=== PATIENT | male | born 1940 | race Caucasian/White ===

== ENCOUNTER → 2016-12-28 | Outpatient (CLI) | payer BC ==
[~2016-12-28] MED LIST: ASPI81TA28 PO; AZAT50TA22 PO; CALCTAB65 PO; CYAN500T13 PO; FLV1 PO; FOLI1TAB7 PO; LEVO75TA5 PO; NUTRTAB48 PO; PRD10 PO; PRED-301 PO; PRED10TA PO; PYRI100T4 PO; SIMV40TA2 PO; XLTOPS OPB; ZCR40 PO; ZNTT/150 PO
[2016-12-28 16:44] LABS: BASO % 0.3 %; BASO ABS # 0.03 K/uL (0-0.2); COMPLETE YES; EOS % 1.6 %; HEMATOCRIT 37.8 % (42-52); IG% 0.6 %; LYMPH % 8.7 %; LYMPH ABS # 0.75 K/uL (1.2-3.4); MEAN CELL VOLUME 109.6 fL (80-100); MEAN CORPUSCULAR HEMOGLOBIN 37.7 pg (25-34); MEAN CORPUSCULAR HGB CONC 34.4 g/dl (32-36); MEAN PLATELET VOLUME 10.1 fL (7.4-10.4); MONO % 4.6 %; NEUT % 84.2 %; PLATELET COUNT 164 K/uL (130-400); RED BLOOD COUNT 3.45 M/uL (4.7-6.1); WHITE BLOOD COUNT 8.61 K/uL (4.8-10.8)
[2016-12-28 16:50] LABS: URINE APPEARANCE CLEAR (CLEAR); URINE BILIRUBIN NEG (NEG); URINE COLOR YELLOW; URINE EPITHELIAL CELL AUTO 0-5 /lpf (0-5); URINE NITRITE NEG (NEG); URINE PH 5.5 (4.5-7.5); UROBILINOGEN NEG (NEG); ZZUR CULT IF INDIC CLEAN CATCH NO
[2016-12-28 16:51] LABS: MANUAL MICROSCOPIC REQUIRED? NO; REVIEW REQ? NO
[2016-12-28 17:09] LABS: ALT/SGPT 28 U/L (12-78); AST/SGOT 20 U/L (15-37)
[2016-12-28 17:13] LABS: ALKALINE PHOSPHATASE 38 U/L (45-117)
[2017-01-02 23:36] LABS: MYELOPEROXIDASE AB 3.6 AI (<1.0)
== END | disposition home or self-care (01) ==
LOC: C.LAB1850 15:47
PROVIDERS: ATTEND Internal Medicine Rheumatology
DX: M31.30 Wegener's granulomatosis without renal involvement (principal); Z79.899 Other long term (current) drug therapy

== ENCOUNTER → 2017-02-21 | Outpatient (CLI) | payer BC | END | disposition home or self-care (01) | LOC: C.LAB1850 16:15 | PROVIDERS: ATTEND Internal Medicine Rheumatology | DX: M31.30 Wegener's granulomatosis without renal involvement (principal); Z79.899 Other long term (current) drug therapy ==

== ENCOUNTER → 2017-05-12 | Outpatient (CLI) | payer BC ==
[2017-05-12 15:37] LABS: BASO % 0.2 %; BASO ABS # 0.02 K/uL (0-0.2); EOS % 1.3 %; IG% 0.8 %; LYMPH % 6.4 %; LYMPH ABS # 0.64 K/uL (1.2-3.4); MEAN CELL VOLUME 112.4 fL (80-100); MEAN CORPUSCULAR HEMOGLOBIN 38.6 pg (25-34); MEAN CORPUSCULAR HGB CONC 34.4 g/dl (32-36); MEAN PLATELET VOLUME 10.3 fL (7.4-10.4); NEUT % 86.3 %; PLATELET COUNT 180 K/uL (130-400); RED BLOOD COUNT 3.47 M/uL (4.7-6.1); WHITE BLOOD COUNT 10.01 K/uL (4.8-10.8)
[2017-05-12 16:06] LABS: ALT/SGPT 23 U/L (12-78)
[2017-05-12 16:09] LABS: ALKALINE PHOSPHATASE 38 U/L (45-117); AST/SGOT 20 U/L (15-37)
[2017-05-12 16:11] LABS: COMPLETE YES
== END | disposition home or self-care (01) ==
LOC: C.LAB1850 14:13
PROVIDERS: ATTEND Internal Medicine Rheumatology
DX: M31.30 Wegener's granulomatosis without renal involvement (principal); Z79.899 Other long term (current) drug therapy

== ENCOUNTER → 2017-06-21 | Outpatient (CLI) | payer BC ==
[2017-06-21 11:16] LABS: BASO % 0.1 %; BASO ABS # 0.01 K/uL (0-0.2); EOS % 1.2 %; HEMATOCRIT 40.9 % (42-52); IG% 0.6 %; LYMPH ABS # 0.72 K/uL (1.2-3.4); MEAN CELL VOLUME 111.1 fL (80-100); MEAN CORPUSCULAR HEMOGLOBIN 36.4 pg (25-34); MEAN CORPUSCULAR HGB CONC 32.8 g/dl (32-36); MONO % 1.7 %; NEUT % 89.4 %; PLATELET COUNT 177 K/uL (130-400); RED BLOOD COUNT 3.68 M/uL (4.7-6.1); WHITE BLOOD COUNT 10.22 K/uL (4.8-10.8)
[2017-06-21 11:40] LABS: COMPLETE YES
[2017-06-21 11:46] LABS: ALT/SGPT 205 U/L (12-78); BLOOD UREA NITROGEN 14 mg/dl (7-18); BUN/CREATININE RATIO 10.7 (10-20); CALCIUM 9.2 mg/dl (8.5-10.1); CARBON DIOXIDE 29 mmol/L (21-32); CHLORIDE 106 mmol/L (98-107); CHOLESTEROL 167 mg/dl (0-200); GLUCOSE 81 mg/dl (70-99); POTASSIUM 3.6 mmol/L (3.5-5.1); SODIUM 141 mmol/L (136-145)
[2017-06-21 12:05] LABS: ALKALINE PHOSPHATASE 211 U/L (45-117); AST/SGOT 88 U/L (15-37); CHOLESTEROL/HDL RATIO 2.2; HDL CHOLESTEROL 75 mg/dl; LDL CHOLESTEROL CALCULATED 67 mg/dl; TRIGLYCERIDES 126 mg/dl (0-150); VERY LOW DENSITY LIPOPROT CALC 25 mg/dl
[2017-06-27 21:35] LABS: MYELOPEROXIDASE AB 2.4 AI (<1.0)
== END | disposition home or self-care (01) ==
LOC: C.LAB1850 10:16
PROVIDERS: ATTEND Internal Medicine Rheumatology
DX: M31.0 Hypersensitivity angiitis (principal); N18.2 Chronic kidney disease, stage 2 (mild); Z79.899 Other long term (current) drug therapy; D64.9 Anemia, unspecified

== ENCOUNTER 2017-06-27 15:44 | Emergency (ER) | payer BC ==
[~2017-06-27] VITALS: Ht 177.8 cm; Wt 74.4 kg
[~2017-06-27 15:44] MED LIST changes: -ASPI81TA28 PO; -AZAT50TA22 PO; -CALCTAB65 PO; -CYAN500T13 PO; -FLV1 PO; -LEVO75TA5 PO; -NUTRTAB48 PO; -PRED10TA PO; -PYRI100T4 PO; -XLTOPS OPB; -ZCR40 PO; -ZNTT/150 PO
[2017-06-27 15:53] VITALS: TEMP 36.8; Ht 177.8 cm; Wt 74.4 kg
[2017-06-27] MEDS ORDERED: XYLOCAINE 1%/SOD BICARB 20 ML VIAL INFIL STA (16:24)
[2017-06-27] MEDS ORDERED: ZCR40 PO (16:31)
[2017-06-27] MEDS ORDERED: AZAT50TA22 PO (16:31)
[2017-06-27] MEDS ORDERED: XLTOPS OPB (16:31)
[2017-06-27] MEDS ORDERED: FLV1 PO (16:31)
[2017-06-27] MEDS ORDERED: PRED10TA PO (16:33)
--- NOTE | 2017-06-27 18:05 | EMERGENCY ROOM VISIT NOTE ---
ED Visit Note First contact with patient: 16:18 Chief Complaint: "Laceration on right hand". History of Present Illness: This patient is a 77-year-old male who presents to the Emergency Department via private vehicle for evaluation of their right thumb laceration. Patient sustained the laceration while moving a branch, when it struck him on the hand and tore the skin overlying the knuckle of the right third digit. They report a moderate amount of bleeding initially. They deny any numbness or tingling into the distal extremity. They report no decreased range of motion of the affected digit. Patient rates his current discomfort as a 0/10. Patient's Tetanus status is believed to be currently up-to-date. Medications: As noted below Allergies: None PMH: No pertinent SHx: Patient currently lives locally. ROS: All pertinent positive and negative review of systems are appropriately documented in the History of Present Illness. Physical Exam: VITAL SIGNS - Vital signs and nursing notes were reviewed. Stable. GENERAL -77-year-old male appearing his stated age who is in no acute distress. Communicates well with provider and answers questions appropriately. SKIN - There is a 2 cm long laceration noted overlying the proximal MCP joint of the ventral aspect of the right third digit. The edges gape apart with traction. No foreign bodies appreciated. Upon further examination there are no deep structures including vessel, tendon, or bony structures appreciated. There is no active bleeding noted. MUSCULOSKELETAL - Laceration as described above. +5/5 strength appreciated of the affected digit. Full range of motion of the affected digit. NEUROLOGIC - Spinothalamic tract was found to be intact with ability to discriminate sharp versus dull sensation. No sensory defects of the dorsal column were appreciated utilizing light touch for evaluation. VASCULAR - Capillary refill was brisk. ED Course: Patient was seen and evaluated by myself. Risks and benefits of performing primary wound closure versus no repair were discussed with the patient who verbalizes understanding. Verbal consent was obtained prior to performing the procedure. The joint capsule is intact, without evidence of tendon or bony involvement. 3 cc of 1% buffered lidocaine was used to perform local anesthetization of the hand. The wound was cleansed and prepped in the typical sterile fashion utilizing normal saline and Betadine. The wound was sterilely draped. Once proper anesthetization was established, the wound was further examined and demonstrated no deep involvement. The wound was copiously irrigated with normal saline and Betadine. The wound was closed using 4 simple, 5-0 nylon sutures with the wound edges being well approximated. Patient tolerated the procedure well. No complications were met. The wound was cleansed and dressed with a Bacitracin dressing. A metal splint was applied to the finger for comfort. Patient educated on worrisome symptoms for return visit to the Emergency Department. Patient discharged to home in good condition. In the evaluation and treatment of this patient, the following differential diagnoses were considered: Finger Fracture, Finger Dislocation, Finger Sprain, Finger Contusion, Jersey Finger, or Mallet Finger. Problem List Medical Problems: (1) Maldonado syndrome Status: Chronic Current/Historical Medications Scheduled Aspirin (Aspirin Ec), 81 MG PO QPM Azathioprine (Azathioprine), 50 MG PO BID Calcium Carbonate-Vitamin D (Calcium 500 + D), 1 TAB PO QPM Cyanocobalamin (Vitamin B12 500MCG), 500 MCG PO DAILY Folic Acid (Folic Acid), 1 MG PO DAILY Latanoprost (Latanoprost), 1 DROP OPB HS Levothyroxine Sodium (Levothyroxine Sodium), 75 MCG PO QAM Nutritional Supplements (Glucosamine Complex), 1 TAB PO BID Prednisone Tab (Prednisone), 10 MG PO DAILY Pyridoxine (Vitamin B6), 100 MG PO DAILY Ranitidine (Zantac), 150 MG PO BID Simvastatin (Simvastatin), 40 MG PO DAILY Allergies Coded Allergies: No Known Allergies (Verified Allergy, Unknown, 12/05/03) Vital Signs Date Time Temp Pulse Resp B/P (MAP) Pulse Ox O2 Delivery O2 Flow Rate FiO2 06/27/17 18:23 54 140/68 95 06/27/17 17:51 60 133/67 95 06/27/17 15:53 36.8 68 16 146/76 96 Room Air Departure Information Impression Primary Impression: Laceration Dispostion Home / Self-Care Condition GOOD Referrals Dima Kebede M.D. (PCP) Patient Instructions My [facility] Additional Instructions Discharge Instructions: You have received 4 sutures on your hand. These sutures are NOT dissolvable and WILL need to be removed by a health care provider in 12 days. You can return to the Emergency Department or contact your Primary Care Provider to have the sutures removed. Please wear the splint for comfort until the sutures are removed. Proper wound care is essential for adequate wound healing and infection prevention. You can shower and clean the wound with soap and water. Do not scour over the wound, pat dry with a towel. Do not submerse the wound (i.e. bathe or dish wash) until the sutures have been removed. You can use an antibiotic ointment with a dressing over the wound for the next 3-4 days. After this time you may leave the wound dry and open to the air. If crust develops over the wound you can use a Q-tip to apply a 1:1 peroxide:water solution to clean the wound. Look for signs of infection of the wound including: increased pain, swelling, foul discharge, streaking, or increased temperature. If any of these are noticed you should return to the Emergency Department for further assessment and treatment. As with any laceration you may have received nerve damage to the surrounding tissues. This damage may or may not be permanent. You should keep the area covered with sunscreen for the first 6 months to 1 year when at risk for exposure to help minimize scarring. You can also use scar reducing creams or Vitamin E oil to help minimize scarring. For pain control, you can use the following [id number] medicines (if >12 yo): - Regular strength (325mg/tab) Tylenol (acetaminophen) 2 tabs every 4-6 hours as needed. Do not exceed 12 tablets in a 24 hour period. Avoid taking more than 3 grams (3000 mg) of Tylenol per day. This includes any other sources of acetaminophen you may take on a regular basis. Return to the emergency department if your symptoms worsen despite treatment course outlined above.
[2017-06-27] MEDS ORDERED: CYAN500T13 PO (18:11)
[2017-06-27] MEDS ORDERED: ZNTT/150 PO (18:11)
[2017-06-27] MEDS ORDERED: LEVO75TA5 PO (18:11)
[2017-06-27] MEDS ORDERED: ASPI81TA28 PO (18:11)
[2017-06-27] MEDS ORDERED: PYRI100T4 PO (18:11)
[2017-06-27] MEDS ORDERED: CALCTAB65 PO (18:11)
[2017-06-27] MEDS ORDERED: NUTRTAB48 PO (18:11)
--- NOTE | 2017-06-27 18:15 | EMERGENCY ROOM VISIT NOTE ---
ED Visit Note First contact with patient: 18:14 I have seen and examined this pt with Cornelio Moore and agree with the treatment plan Problem List Medical Problems: (1) Maldonado syndrome Status: Chronic Current/Historical Medications Scheduled Aspirin (Aspirin Ec), 81 MG PO QPM Azathioprine (Azathioprine), 50 MG PO BID Calcium Carbonate-Vitamin D (Calcium 500 + D), 1 TAB PO QPM Cyanocobalamin (Vitamin B12 500MCG), 500 MCG PO DAILY Folic Acid (Folic Acid), 1 MG PO DAILY Latanoprost (Latanoprost), 1 DROP OPB HS Levothyroxine Sodium (Levothyroxine Sodium), 75 MCG PO QAM Nutritional Supplements (Glucosamine Complex), 1 TAB PO BID Prednisone Tab (Prednisone), 10 MG PO DAILY Pyridoxine (Vitamin B6), 100 MG PO DAILY Ranitidine (Zantac), 150 MG PO BID Simvastatin (Simvastatin), 40 MG PO DAILY Allergies Coded Allergies: No Known Allergies (Verified Allergy, Unknown, 12/05/03) Vital Signs Date Time Temp Pulse Resp B/P (MAP) Pulse Ox O2 Delivery O2 Flow Rate FiO2 06/27/17 17:51 60 133/67 95 06/27/17 15:53 36.8 68 16 146/76 96 Room Air Departure Information Impression Primary Impression: Laceration Dispostion Home / Self-Care Condition GOOD Referrals Dima Kebede M.D. (PCP) Forms HOME CARE DOCUMENTATION FORM, IMPORTANT VISIT INFORMATION Patient Instructions My [facility] Additional Instructions Discharge Instructions: You have received 4 sutures on your hand. These sutures are NOT dissolvable and WILL need to be removed by a health care provider in 12 days. You can return to the Emergency Department or contact your Primary Care Provider to have the sutures removed. Please wear the splint for comfort until the sutures are removed. Proper wound care is essential for adequate wound healing and infection prevention. You can shower and clean the wound with soap and water. Do not scour over the wound, pat dry with a towel. Do not submerse the wound (i.e. bathe or dish wash) until the sutures have been removed. You can use an antibiotic ointment with a dressing over the wound for the next 3-4 days. After this time you may leave the wound dry and open to the air. If crust develops over the wound you can use a Q-tip to apply a 1:1 peroxide:water solution to clean the wound. Look for signs of infection of the wound including: increased pain, swelling, foul discharge, streaking, or increased temperature. If any of these are noticed you should return to the Emergency Department for further assessment and treatment. As with any laceration you may have received nerve damage to the surrounding tissues. This damage may or may not be permanent. You should keep the area covered with sunscreen for the first 6 months to 1 year when at risk for exposure to help minimize scarring. You can also use scar reducing creams or Vitamin E oil to help minimize scarring. For pain control, you can use the following [id number] medicines (if >12 yo): - Regular strength (325mg/tab) Tylenol (acetaminophen) 2 tabs every 4-6 hours as needed. Do not exceed 12 tablets in a 24 hour period. Avoid taking more than 3 grams (3000 mg) of Tylenol per day. This includes any other sources of acetaminophen you may take on a regular basis. Return to the emergency department if your symptoms worsen despite treatment course outlined above.
[2017-06-27 18:23] VITALS: BP 140/68; PULSE 54; O2SAT 95
== END 2017-06-27 18:24 | disposition home or self-care (01) ==
LOC: C.EDB 15:45 → C.EDD 18:24
DX: S61.011A Laceration without foreign body of right thumb without damage to nail, initial encounter (principal); W26.8XXA Contact with other sharp object(s), not elsewhere classified, initial encounter; Y93.89 Activity, other specified; Y99.8 Other external cause status; Z79.82 Long term (current) use of aspirin

== ENCOUNTER 2017-07-09 11:02 | Emergency (ER) | payer BC ==
[~2017-07-09] VITALS: Ht 177.8 cm; Wt 74.5 kg
[~2017-07-09 11:02] MED LIST changes: +ASPI81TA28 PO; +AZAT50TA22 PO; +CALCTAB65 PO; +CYAN500T13 PO; +FLV1 PO; -FOLI1TAB7 PO; +LEVO75TA5 PO; +NUTRTAB48 PO; -PRD10 PO; -PRED-301 PO; +PRED10TA PO; +PYRI100T4 PO; -SIMV40TA2 PO; +XLTOPS OPB; +ZCR40 PO; +ZNTT/150 PO
[2017-07-09 11:04] VITALS: BP 185/91; PULSE 61; TEMP 36.7; O2SAT 98; Ht 177.8 cm; Wt 74.5 kg
--- NOTE | 2017-07-09 18:10 | EMERGENCY ROOM VISIT NOTE ---
History First contact with patient: 11:07 Chief Complaint: SUTURE/STAPLE REMOVAL Stated Complaint: REMOVAL OF STITCHES Nursing Triage Summary: triage note: Pt presents for removal of sutures to right hand. History of Present Illness The patient is a 77 year old male who presents to the Emergency Room for possible suture removal from a right hand laceration repair in our department 12 days ago. The patient denies any wound complications. He has been celestino taping and splinting his fingers to minimize stress on the wound. He denies any drainage. Review of Systems Noncontributory Past Medical/Surgical History Medical Problems: (1) Pneumonia (2) Maldonado syndrome Family History FH: alcohol abuse FH: lung cancer FH: lupus Social History Smoking Status: Never Smoker Marital Status: Occupation Status: employed Current/Historical Medications Scheduled Aspirin (Aspirin Ec), 81 MG PO QPM Azathioprine (Azathioprine), 50 MG PO BID Calcium Carbonate-Vitamin D (Calcium 500 + D), 1 TAB PO QPM Cyanocobalamin (Vitamin B12 500MCG), 500 MCG PO DAILY Folic Acid (Folic Acid), 1 MG PO DAILY Latanoprost (Latanoprost), 1 DROP OPB HS Levothyroxine Sodium (Levothyroxine Sodium), 75 MCG PO QAM Nutritional Supplements (Glucosamine Complex), 1 TAB PO BID Prednisone Tab (Prednisone), 10 MG PO DAILY Pyridoxine (Vitamin B6), 100 MG PO DAILY Ranitidine (Zantac), 150 MG PO BID Simvastatin (Simvastatin), 40 MG PO DAILY Physical Exam Vital Signs Date Time Temp Pulse Resp B/P (MAP) Pulse Ox O2 Delivery O2 Flow Rate FiO2 07/09/17 11:04 36.7 61 18 185/91 98 Room Air Pain Rating (0-10): 0 Physical Exam MUSCULOSKELETAL: Examination of the right hand shows a well-healing laceration on the dorsal base of the index finger. There is some mild erythema, and the epidermis is mildly gaping. However, the underlying dermal layer appears well- healed. All sutures were removed without any complications. Medical Decision & Procedures ED Course Suture removal was performed. The patient was encouraged to try to limit any undue stress on the wound over the next several days. The patient reports that he would rather wear his splint and celestino taping until he feels that the wound has healed completely. He may follow up with his PCP as needed for further wound management. Medical Decision Impression Primary Impression: Encounter for removal of sutures Additional Impression: Laceration of right hand Departure Information Dispostion Home / Self-Care Condition GOOD Referrals Dima Kebede M.D. (PCP) Forms HOME CARE DOCUMENTATION FORM, IMPORTANT VISIT INFORMATION Patient Instructions [facility] Problem Qualifiers Additional Impression: Laceration of right hand Encounter type: subsequent encounter Foreign body presence: without foreign body Qualified Codes: S61.411D - Laceration without foreign body of right hand , subsequent encounter
== END 2017-07-09 11:17 | disposition home or self-care (01) ==
LOC: C.EDB 11:03 → C.EDD 11:17
DX: S61.411D Laceration without foreign body of right hand, subsequent encounter (principal); X58.XXXD Exposure to other specified factors, subsequent encounter; Z87.01 Personal history of pneumonia (recurrent); M31.30 Wegener's granulomatosis without renal involvement; Z80.1 Family history of malignant neoplasm of trachea, bronchus and lung; Z83.2 Family history of diseases of the blood and blood-forming organs and certain disorders involving the immune mechanism; Z81.1 Family history of alcohol abuse and dependence; Z79.82 Long term (current) use of aspirin; Z79.899 Other long term (current) drug therapy

== ENCOUNTER → 2017-07-24 | Outpatient (CLI) | payer BC ==
[2017-07-24 18:16] LABS: ALT/SGPT 25 U/L (12-78); BLOOD UREA NITROGEN 18 mg/dl (7-18); BUN/CREATININE RATIO 13.1 (10-20); CALCIUM 9.2 mg/dl (8.5-10.1); CARBON DIOXIDE 27 mmol/L (21-32); CHLORIDE 108 mmol/L (98-107); GLUCOSE 99 mg/dl (70-99); POTASSIUM 4.3 mmol/L (3.5-5.1); SODIUM 141 mmol/L (136-145)
[2017-07-24 18:27] LABS: ALB/GLOB RATIO 1.3 (0.9-2); ALKALINE PHOSPHATASE 64 U/L (45-117); AST/SGOT 22 U/L (15-37)
== END | disposition home or self-care (01) ==
LOC: C.LAB1850 17:10
PROVIDERS: ATTEND Internal Medicine
DX: R79.89 Other specified abnormal findings of blood chemistry (principal); E89.0 Postprocedural hypothyroidism

== ENCOUNTER → 2017-09-14 | Outpatient (CLI) | payer BC ==
[2017-09-14 16:09] LABS: BASO % 0.1 %; BASO ABS # 0.01 K/uL (0-0.2); COMPLETE YES; EOS % 0.4 %; HEMATOCRIT 43.7 % (42-52); IG% 0.9 %; LYMPH % 4.6 %; LYMPH ABS # 0.42 K/uL (1.2-3.4); MEAN CELL VOLUME 104.8 fL (80-100); MEAN CORPUSCULAR HEMOGLOBIN 35.5 pg (25-34); MEAN CORPUSCULAR HGB CONC 33.9 g/dl (32-36); MEAN PLATELET VOLUME 9.9 fL (7.4-10.4); MONO % 5.3 %; NEUT % 88.7 %; PLATELET COUNT 149 K/uL (130-400); RED BLOOD COUNT 4.17 M/uL (4.7-6.1); WHITE BLOOD COUNT 9.16 K/uL (4.8-10.8)
[2017-09-14 16:33] LABS: ALT/SGPT 27 U/L (12-78); CREATININE 1.35 mg/dl (0.60-1.40)
[2017-09-14 16:36] LABS: ALKALINE PHOSPHATASE 53 U/L (45-117); AST/SGOT 20 U/L (15-37)
[2017-09-20 18:38] LABS: MYELOPEROXIDASE AB 2.7 AI (<1.0)
== END | disposition home or self-care (01) ==
LOC: C.LAB1850 15:30
PROVIDERS: ATTEND Internal Medicine Rheumatology
DX: G62.9 Polyneuropathy, unspecified (principal)

== ENCOUNTER → 2017-10-17 | Outpatient (CLI) | payer BC ==
[~2017-10-17] MED LIST changes: +AMOX500T PO; +AZAT50TA17 PO; +CEPH-571 PO; +CEPH500C PO; +CIPR-255 PO; +DTR/5 PO; +DXY100 PO; +FLM4 PO; +FLUT1INH INTNAS; +LEVO1TAB35 PO; +NYSS/ PO; +OXYC7.5T65 PO; +PHEN-775 PO; +PHEN-876 PO; +PRED20TA PO; +RANI150T85 PO; +SULF800T23 PO; +SULFPOW92 PO; +TAMS0.4C38 PO; +VNTHFA/IN INH; -ZNTT/150 PO; +[UNRECOGNIZED DRUG - OTHER] PO
--- NOTE | 2017-10-17 11:00 | DIAGNOSTIC IMAGING REPORT ---
L VENOUS DOPP LOWER EXT UNILAT CLINICAL HISTORY: 77 years-old Male presenting with LEG SWELLING. TECHNIQUE: Real-time grayscale and color and spectral Doppler ultrasound imaging of the veins of the left lower extremity was performed. Compression and augmentation were also utilized. COMPARISON: 05/30/2006. FINDINGS: Left: Common femoral vein: Patent. Greater saphenous vein: Patent. Deep femoral vein: Patent. Femoral vein: Patent. Popliteal vein: Patent. Calf veins: Patent. Other: None. IMPRESSION: No evidence of deep venous thrombosis. Electronically signed by: Dima Carblalo M.D. 10/17/2017 10:59 AM Dictated Date/Time: 10/17/2017 10:56 AM
== END | disposition home or self-care (01) ==
LOC: C.ULTRBC 10:29
PROVIDERS: ATTEND Physician Assistant
DX: M79.89 Other specified soft tissue disorders (principal); R60.0 Localized edema

== ENCOUNTER → 2017-10-19 | Outpatient (CLI) | payer BC ==
[2017-10-19 13:09] LABS: BASO % 0.1 %; BASO ABS # 0.01 K/uL (0-0.2); EOS % 1.2 %; EOS ABS # 0.12 K/uL (0-0.5); HEMATOCRIT 40.3 % (42-52); HEMOGLOBIN 13.6 g/dL (14.0-18.0); IG# 0.07 K/uL (0.00-0.02); LYMPH % 5.4 %; LYMPH ABS # 0.53 K/uL (1.2-3.4); MEAN CELL VOLUME 105.2 fL (80-100); MEAN CORPUSCULAR HEMOGLOBIN 35.5 pg (25-34); MEAN CORPUSCULAR HGB CONC 33.7 g/dl (32-36); MEAN PLATELET VOLUME 10.2 fL (7.4-10.4); MONO % 4.4 %; MONO ABS # 0.43 K/uL (0.11-0.59); NEUT % 88.2 %; NEUT ABS # 8.62 K/uL (1.4-6.5); PLATELET COUNT 192 K/uL (130-400); RED CELL DISTRIBUTION WIDTH SD 53.9 fL (36.4-46.3); WHITE BLOOD COUNT 9.78 K/uL (4.8-10.8)
[2017-10-19 16:16] LABS: ALBUMIN 3.6 gm/dl (3.4-5.0); ALT/SGPT 28 U/L (12-78); AST/SGOT 23 U/L (15-37)
[2017-10-19 16:19] LABS: ALKALINE PHOSPHATASE 48 U/L (45-117); TOTAL PROTEIN 6.7 gm/dl (6.4-8.2)
== END | disposition home or self-care (01) ==
LOC: C.LAB1850 11:25
PROVIDERS: ATTEND Internal Medicine Rheumatology
DX: M31.30 Wegener's granulomatosis without renal involvement (principal); Z79.899 Other long term (current) drug therapy; S81.802A Unspecified open wound, left lower leg, initial encounter; X58.XXXA Exposure to other specified factors, initial encounter

== ENCOUNTER 2017-11-07 12:39 | Inpatient (IN) | payer BC, OTHER ==
[~2017-11-07] VITALS: Ht 177.8 cm; Wt 74.5 kg
[~2017-11-07 12:39] MED LIST changes: -AMOX500T PO; -AZAT50TA17 PO; -CEPH-571 PO; -CIPR-255 PO; -DTR/5 PO; -DXY100 PO; -FLM4 PO; -FLUT1INH INTNAS; -LEVO1TAB35 PO; -NYSS/ PO; -OXYC7.5T65 PO; -PHEN-775 PO; -PHEN-876 PO; -PRED20TA PO; -RANI150T85 PO; -SULF800T23 PO; -SULFPOW92 PO; -TAMS0.4C38 PO; -VNTHFA/IN INH; +ZNTT/150 PO; -[UNRECOGNIZED DRUG - OTHER] PO
[2017-11-07] MEDS ORDERED: ASPIRIN 81 MG CHEW PO STA (13:06)
[2017-11-07] MEDS ORDERED: METHYLPREDNISOLONE 125 MG VIAL IV STA (13:06)
[2017-11-07] MEDS ORDERED: SODIUM CHLORIDE 0.9% 1000ML 1,000 ML IV STA (13:06)
[2017-11-07] MEDS ORDERED: ALBUT/IPRATROP 3MG/0.5MG NEB 3 ML VIAL INH STA (13:06)
--- NOTE | 2017-11-07 13:24 | EMERGENCY ROOM VISIT NOTE ---
History Report prepared by Joseph: Raj Carson Under the Supervision of: Dr. Ty Murray M.D. First contact with patient: 12:57 Chief Complaint: SHORTNESS OF BREATH Stated Complaint: SOB, CHILLS, FEVER Nursing Triage Summary: fever chills shortness of breath since last . sent from PCP with conserns of Pneumonia. flu was negative at PCP History of Present Illness The patient is a 77 year old male who presents to the Emergency Room with complaints of worsening shortness of breath for the past five days. He notes that his shortness of breath is worsened with talking. The patient states that he has a history of Franki's granulomatosis, and he thinks that he is currently having a flare up. The patient states that he is coughing up mucous, though he is not coughing up any blood. He denies any chest pain, recent travel, and history of CHF. The patient is currently on steroids and was thought to be in remission. H notes that he is not currently on oxygen at home. Source of History: patient Onset: five days ago Position: other (global) Quality: other (shortness of breath) Timing: worsening Modifying Factors (Worsening): other (talking) Associated Symptoms: + cough, No chest pain Review of Systems See HPI for pertinent positives and negatives. A total of ten systems were reviewed and were otherwise negative. Past Medical & Surgical Medical Problems: (1) Pneumonia (2) Maldonado syndrome (3) Radha's disease, pulmonary Family History FH: alcohol abuse FH: lung cancer FH: lupus Social History Smoking Status: Former Smoker Drug Use: none Marital Status: Occupation Status: retired Current/Historical Medications Scheduled Aspirin (Aspirin Ec), 81 MG PO QPM Azathioprine (Azathioprine), 50 MG PO BID Calcium Carbonate-Vitamin D (Calcium 500 + D), 1 TAB PO QPM Cyanocobalamin (Vitamin B12 500MCG), 500 MCG PO DAILY Folic Acid (Folic Acid), 1 MG PO DAILY Latanoprost (Latanoprost), 1 DROP OPB HS Levothyroxine Sodium (Levothyroxine Sodium), 75 MCG PO QAM Nutritional Supplements (Glucosamine Complex), 1 TAB PO BID Prednisone Tab (Prednisone), 10 MG PO DAILY Pyridoxine (Vitamin B6), 100 MG PO DAILY Ranitidine (Zantac), 150 MG PO BID Simvastatin (Simvastatin), 40 MG PO DAILY Allergies Coded Allergies: No Known Allergies (Verified , 11/07/17) Physical Exam Vital Signs Date Time Temp Pulse Resp B/P (MAP) Pulse Ox O2 Delivery O2 Flow Rate FiO2 11/07/17 14:38 71 24 118/66 98 Nasal Cannula 2.0 11/07/17 14:16 77 16 129/69 99 Room Air 11/07/17 13:36 85 Room Air 11/07/17 13:36 94 Nasal Cannula 4.0 11/07/17 13:30 72 11/07/17 13:04 Nasal Cannula 2.0 11/07/17 13:04 85 Room Air 11/07/17 12:52 88 Room Air 11/07/17 12:50 37.0 78 20 114/78 88 Room Air Physical Exam Physical Exam GENERAL: He is oriented to person, place, and time. He appears well-developed and well-nourished. He does not appear distressed. ____ HENT: Exam performed. Head: Normocephalic and atraumatic. Right Ear: External ear normal. No mastoid tenderness. Left Ear: External ear normal. No mastoid tenderness. Mouth/Throat: The oropharynx is clear and moist. No trismus in the jaw. No dental abscesses or uvula swelling. No oropharyngeal exudate or tonsillar abscesses. ____ EYES: Conjunctivae and EOM are normal. Pupils are equal, round, and reactive to light. Right eye exhibits no discharge. Left eye exhibits no discharge. No scleral icterus. ____ NECK: Normal range of motion. Neck supple. No JVD present. No spinous process tenderness present. No carotid bruit present. No rigidity. No tracheal deviation and normal range of motion present. No Brudzinski's sign and no Kernig 's sign noted. ____ CV: Normal rate, regular rhythm, normal heart sounds and intact distal pulses. There is no peripheral edema. Palpable radial pulses bue. ____ PULM/CHEST: Lung sounds diminished at the bases. He has rhonchi and expiratory wheezes. Effort normal. No respiratory distress. No stridor. He has no rales. Chest Wall: She exhibits no tenderness. ____ ABD: There is a reducible umbilical hernia. The abdomen is soft. Bowel sounds are normal. He has no distension. There is no tenderness. There is no rebound, no guarding, no Perry's sign and no tenderness at McBurney's point. Rovsig negative MUSC/SKEL: Normal range of motion. There is no peripheral edema, tenderness or deformity. LYMPH: No cervical adenopathy. ____ NEURO: He is alert and oriented to person, place, and time. He has normal strength. No cranial nerve deficit or sensory deficit. Coordination and gait normal. GCS eye subscore is 4. GCS verbal subscore is 5. GCS motor subscore is 6. cerbellar tests wnl. ____ SKIN: Skin is warm and dry. He is not diaphoretic. ____ PSYCH: He has a normal mood and affect. His behavior is normal. Judgment and thought content normal. ____ Medical Decision & Procedures ER Provider Diagnostic Interpretation: Radiology results as stated below per my review and radiologist interpretation: CHEST ONE VIEW PORTABLE CLINICAL HISTORY: SOB dyspnea COMPARISON STUDY: 12/21/2015 FINDINGS: Interval development of parenchymal infiltrative changes in both lung bases as well as right perihilar region. Peripheral infiltrative changes right lung. Pulmonary apices are clear. No significant cardiac enlargement. IMPRESSION: Interval development of bilateral parenchymal infiltrative changes as discussed. The above report was generated using voice recognition software. It may contain grammatical, syntax or spelling errors. Electronically signed by: Colin Agustin M.D. 11/07/2017 2:08 PM Dictated Date/Time: 11/07/2017 2:07 PM (CHEST FOR PE) ANGIO WITH CT DOSE: 352.52 mGycm HISTORY: Chest pain dyspnea TECHNIQUE: Multiaxial CT images of the chest were performed following the intravenous administration of contrast to evaluate the pulmonary arteries. Maximal intensity projection images were also obtained. A dose lowering technique was utilized adhering to the principles of ALARA. COMPARISON STUDY: None. FINDINGS: The thoracic aorta shows moderate ectasia. No evidence for true aneurysm or dissection. All major arterial vasculature enhances appropriately. No major filling defect is appreciated. Patient has developed bilateral parenchymal infiltrative and peribronchial changes. These is seen diffusely throughout both hemithoraces. Several small reactive mediastinal nodes are present. Bulky adenopathy is not appreciated. Several hepatic cysts unchanged from the prior study. IMPRESSION: 1. Study is negative for pulmonary embolus. 2. Diffuse scattered bilateral parenchymal infiltrative changes. The above report was generated using voice recognition software. It may contain grammatical, syntax or spelling errors. Electronically signed by: Colin Agustin M.D. 11/07/2017 3:15 PM Dictated Date/Time: 11/07/2017 3:13 PM Laboratory Results 11/07/17 13:25 Red Blood Count 3.97, Mean Corpuscular Volume 104.3, Mean Corpuscular Hemoglobin 36.0, Mean Corpuscular Hemoglobin Concent 34.5, Mean Platelet Volume 10.2, Neutrophils (%) (Auto) 91.8, Lymphocytes (%) (Auto) 3.9, Monocytes (%) ( Auto) 3.4, Eosinophils (%) (Auto) 0.1, Basophils (%) (Auto) 0.2, Neutrophils # ( Auto) 11.89, Lymphocytes # (Auto) 0.50, Monocytes # (Auto) 0.44, Eosinophils # ( Auto) 0.01, Basophils # (Auto) 0.03 11/07/17 13:25 Test 11/07/17 13:25 11/07/17 13:32 11/07/17 13:56 11/07/17 15:40 White Blood Count 12.95 K/uL (4.8-10.8) Red Blood Count 3.97 M/uL (4.7-6.1) Hemoglobin 14.3 g/dL (14.0-18.0) Hematocrit 41.4 % (42-52) Mean Corpuscular Volume 104.3 fL (80-100) Mean Corpuscular Hemoglobin 36.0 pg (25-34) Mean Corpuscular Hemoglobin Concent 34.5 g/dl (32-36) Platelet Count 211 K/uL (130-400) Mean Platelet Volume 10.2 fL (7.4-10.4) Neutrophils (%) (Auto) 91.8 % Lymphocytes (%) (Auto) 3.9 % Monocytes (%) (Auto) 3.4 % Eosinophils (%) (Auto) 0.1 % Basophils (%) (Auto) 0.2 % Neutrophils # (Auto) 11.89 K/uL (1.4-6.5) Lymphocytes # (Auto) 0.50 K/uL (1.2-3.4) Monocytes # (Auto) 0.44 K/uL (0.11-0.59) Eosinophils # (Auto) 0.01 K/uL (0-0.5) Basophils # (Auto) 0.03 K/uL (0-0.2) RDW Standard Deviation 52.4 fL (36.4-46.3) RDW Coefficient of Variation 13.7 % (11.5-14.5) Immature Granulocyte % (Auto) 0.6 % Immature Granulocyte # (Auto) 0.08 K/uL (0.00-0.02) Toxic Granulation 2+ Prothrombin Time 10.8 SECONDS (9.0-12.0) Prothromb Time International Ratio 1.0 (0.9-1.1) Activated Partial Thromboplast Time 32.1 SECONDS (21.0-31.0) Partial Thromboplastin Ratio 1.2 Anion Gap 8.0 mmol/L (3-11) Est Creatinine Clear Calc Drug Dose 42.0 ml/min Estimated GFR () 52.7 Estimated GFR (Non- 45.5 BUN/Creatinine Ratio 19.0 (10-20) Calcium Level 9.8 mg/dl (8.5-10.1) Total Bilirubin 1.1 mg/dl (0.2-1) Aspartate Amino Transf (AST/SGOT) 79 U/L (15-37) Alanine Aminotransferase (ALT/SGPT) 99 U/L (12-78) Alkaline Phosphatase 80 U/L (45-117) Troponin I < 0.015 ng/ml (0-0.045) Pro-B-Type Natriuretic Peptide 317 pg/ml (0-1800) Total Protein 7.6 gm/dl (6.4-8.2) Albumin 3.0 gm/dl (3.4-5.0) Globulin 4.6 gm/dl (2.5-4.0) Albumin/Globulin Ratio 0.7 (0.9-2) Bedside Lactic Acid Venous 2.02 mmol/L (0.90-1.70) Arterial Blood pH 7.40 (7.35-7.45) Arterial Blood Partial Pressure CO2 35 mmHg (35-46) Arterial Blood Partial Pressure O2 92 mm/Hg (80-95) Arterial Blood HCO3 22 mmol/L (19-24) Arterial Blood Oxygen Saturation 96.6 % (90-95) Arterial Blood Base Excess -2.7 mEq/L (-9-1.8) Arterial Blood Gas Delivery 2L Dickson Test POS (POS) Influenza Type A Antigen Neg for Influ A (NEG) Influenza Type B Antigen Neg for Influ B (NEG) Laboratory results reviewed by me Medications Administered Medications (Trade) Dose Ordered Sig/Luis Miguel Route Start Time Stop Time Status Last Admin Dose Admin Aspirin (Aspirin Chew) 324 mg NOW STAT PO 11/07/17 13:06 11/07/17 13:11 DC 11/07/17 13:22 324 MG Albuterol/ Ipratropium (Duoneb) 3 ml NOW STAT INH 11/07/17 13:06 11/07/17 13:11 DC 11/07/17 13:22 3 ML Methylprednisolone Sodium Succinate (Solu-Medrol IV) 125 mg NOW STAT IV 11/07/17 13:06 11/07/17 13:11 DC 11/07/17 13:22 125 MG Sodium Chloride 1,000 ml @ 125 mls/hr Q8H STAT IV 11/07/17 13:06 11/07/17 21:05 11/07/17 13:26 125 MLS/HR Vancomycin HCl (Vancomycin 1gm/ 270ml Nss) 1 gm NOW STAT IV 11/07/17 15:45 11/07/17 15:46 DC 11/07/17 16:32 1 GM Piperacillin Sod/ Tazobactam Sod (Zosyn Iv) 4.5 gm NOW STAT IV 11/07/17 15:45 11/07/17 15:46 DC 11/07/17 15:54 4.5 GM ECG Indication: SOB/dyspnea Rate (beats per minute): 78 Rhythm: sinus rhythm Findings: no acute ischemic change, no ectopy, other (OH, QRS, QTC intrevals are within normal limits. There is baseline artifact. No ST elevation or depression.) Change: Patient;s EKG has been interpreted by me. ED Course 1301: The patient was evaluated in room A12. A complete history and physical exam was performed. Immediately upon entering the room, the patients oxygen saturation was 85% on room air. He was started on 4L oxygen via nasal cannula, and the saturation went up to 93%. 1306: Sodium Chloride 1000 ml @ 125 mls/hr IV, Solu-Medrol 125mg IV, DuoNeb 3ml INH, Aspirin 324mg PO 1410: VSS. Repeat BP has improved. Patient is breathing more comfortably on nasal cannula oxygen after the DuoNeb. There are still some scant expiratory wheezes, and he states that he does not feel like he needs another DuoNeb. Labs show a mild leukocytosis, and this could be due to infection vs elevation due to prednisone usage at home. Chest X-ray showed infiltrative changes bilaterally. Patient states that his x-rays commonly come up showing pneumonia due to his Radha's. Many times after his subsequent work-up he is told that he had no pneumonia. Due to his Radha's, hypoxia, and patient reports of false histories, a CTA chest was ordered. 1544: Upon reevaluation, the patient states that he is breathing comfortable on oxygen. CTA negative for PE. It does show infiltrative change. Flu swab was resent due to lab losing the sample. Will start empiric treatment and admit to the hospital, and the patient was agreeable. 1545: Zosyn 4.5gm IV, Vancomycin HCl 1gm IV 1550: Discussed the patient's case with Dr. Cathie Trejo [facility] Hospitalist. The patient will be evaluated for further treatment and disposition. Medical Decision 1301: The patient was evaluated in room A12. A complete history and physical exam was performed. Immediately upon entering the room, the patients oxygen saturation was 85% on room air. He was started on 4L oxygen via nasal cannula, and the saturation went up to 93%. 1410: VSS. Repeat BP has improved. Patient is breathing more comfortably on nasal cannula oxygen after the DuoNeb. There are still some scant expiratory wheezes, and he states that he does not feel like he needs another DuoNeb. Labs show a mild leukocytosis, and this could be due to infection vs elevation due to prednisone usage at home. Chest X-ray showed infiltrative changes bilaterally. Patient states that his x-rays commonly come up showing pneumonia due to his Radha's. Many times after his subsequent work-up he is told that he had no pneumonia. Due to his Radha's, hypoxia, and patient reports of false histories, a CTA chest was ordered. 1544: Upon reevaluation, the patient states that he is breathing comfortable on oxygen. CTA negative for PE. It does show infiltrative change. Flu swab was resent due to lab losing the sample. Will start empiric treatment and admit to the hospital, and the patient was agreeable. Medication Reconcilliation Current Medication List: was personally reviewed by me Blood Pressure Screening Patient's blood pressure: Normal blood pressure Consults Time Called: 1544 Consulting Physician: Dr. Brand Returned Call: 1550 Discussed the patient's case with Dr. Brand - [facility] Hospitalist. The patient will be evaluated for further treatment and disposition. Impression Primary Impression: Hypoxia Additional Impression: Pneumonia Critical Care I have personally spent greater than 64 minutes of critical care time in the direct management of this patient. This includes bedside care, interpretation of diagnostic studies, and testing, discussion with consultants, patient, and family members, and other required patient management activities. This 64 minutes is in excess of all separately billable procedures. Scribe Attestation The scribe's documentation has been prepared under my direction and personally reviewed by me in its entirety. I confirm that the note above accurately reflects all work, treatment, procedures, and medical decision making performed by me. The chart was completed utilizing [employer] voice recognition software. Grammatical errors, random word insertions, pronoun errors, and incomplete sentences are an occasional consequence of this system due to software limitations, ambient noise, and hardware issues. Any formal questions or concerns about the content, text, or information contained within the body of this dictation should be directly addressed to the physician for clarification. Departure Information Dispostion Being Evaluated By Hospitalist Referrals Dima Kebede M.D. (PCP) Patient Instructions [facility] Problem Qualifiers
[2017-11-07 13:52] LABS: HEMATOCRIT 41.4 % (42-52); HEMOGLOBIN 14.3 g/dL (14.0-18.0); MEAN CELL VOLUME 104.3 fL (80-100); MEAN CORPUSCULAR HGB CONC 34.5 g/dl (32-36); MEAN PLATELET VOLUME 10.2 fL (7.4-10.4); PLATELET COUNT 211 K/uL (130-400); RED CELL DISTRIBUTION WIDTH CV 13.7 % (11.5-14.5); RED CELL DISTRIBUTION WIDTH SD 52.4 fL (36.4-46.3); WHITE BLOOD COUNT 12.95 K/uL (4.8-10.8)
[2017-11-07 13:57] LABS: PTT PATIENT 32.1 SECONDS (21.0-31.0)
--- NOTE | 2017-11-07 14:09 | DIAGNOSTIC IMAGING REPORT ---
CHEST ONE VIEW PORTABLE CLINICAL HISTORY: SOB dyspnea COMPARISON STUDY: 12/21/2015 FINDINGS: Interval development of parenchymal infiltrative changes in both lung bases as well as right perihilar region. Peripheral infiltrative changes right lung. Pulmonary apices are clear. No significant cardiac enlargement. IMPRESSION: Interval development of bilateral parenchymal infiltrative changes as discussed. The above report was generated using voice recognition software. It may contain grammatical, syntax or spelling errors. Electronically signed by: Colin Agustin M.D. 11/07/2017 2:08 PM Dictated Date/Time: 11/07/2017 2:07 PM
[2017-11-07 14:10] LABS: BLOOD UREA NITROGEN 27 mg/dl (7-18); CARBON DIOXIDE 26 mmol/L (21-32); CREATININE 1.45 mg/dl (0.60-1.40); GLUCOSE 118 mg/dl (70-99); POTASSIUM 4.1 mmol/L (3.5-5.1); SODIUM 134 mmol/L (136-145)
[2017-11-07 14:11] LABS: ALT/SGPT 99 U/L (12-78); AST/SGOT 79 U/L (15-37); CALCIUM 9.8 mg/dl (8.5-10.1)
[2017-11-07 14:15] LABS: BASO % 0.2 %; BASO ABS # 0.03 K/uL (0-0.2); EOS % 0.1 %; EOS ABS # 0.01 K/uL (0-0.5); IG# 0.08 K/uL (0.00-0.02); LYMPH % 3.9 %; MONO % 3.4 %; MONO ABS # 0.44 K/uL (0.11-0.59); NEUT % 91.8 %; NEUT ABS # 11.89 K/uL (1.4-6.5)
[2017-11-07 14:16] LABS: ALKALINE PHOSPHATASE 80 U/L (45-117); TOTAL PROTEIN 7.6 gm/dl (6.4-8.2)
[2017-11-07] MEDS ORDERED: OPTIRAY 320 IV PRN (14:45)
--- NOTE | 2017-11-07 15:16 | DIAGNOSTIC IMAGING REPORT ---
(CHEST FOR PE) ANGIO WITH CT DOSE: 352.52 mGycm HISTORY: Chest pain dyspnea TECHNIQUE: Multiaxial CT images of the chest were performed following the intravenous administration of contrast to evaluate the pulmonary arteries. Maximal intensity projection images were also obtained. A dose lowering technique was utilized adhering to the principles of ALARA. COMPARISON STUDY: None. FINDINGS: The thoracic aorta shows moderate ectasia. No evidence for true aneurysm or dissection. All major arterial vasculature enhances appropriately. No major filling defect is appreciated. Patient has developed bilateral parenchymal infiltrative and peribronchial changes. These is seen diffusely throughout both hemithoraces. Several small reactive mediastinal nodes are present. Bulky adenopathy is not appreciated. Several hepatic cysts unchanged from the prior study. IMPRESSION: 1. Study is negative for pulmonary embolus. 2. Diffuse scattered bilateral parenchymal infiltrative changes. The above report was generated using voice recognition software. It may contain grammatical, syntax or spelling errors. Electronically signed by: Colin Agustin M.D. 11/07/2017 3:15 PM Dictated Date/Time: 11/07/2017 3:13 PM
[2017-11-07] MEDS ORDERED: VANCOMYCIN 1GM/270ML NSS IV STA (15:45)
[2017-11-07] MEDS ORDERED: PIPERACILLIN/TAZOBACTAM 4.5 GM/100ML D5W IV STA (15:45)
[2017-11-07 16:21] LABS: INFLUENZA B ANTIGEN Neg for Influ B (NEG)
[2017-11-07] MEDS ORDERED: ACETAMINOPHEN 325 MG TAB PO PRN (16:45)
--- NOTE | 2017-11-07 17:29 | History and Physical ---
History & Physical Date & Time of Service: Nov 07, 2017 at 16:26 Chief Complaint: Sob, Chills, Fever Primary Care Physician: Dima Kebede M.D. History of Present Illness Mr. Abdi presents today for sob, cough, malaise, fever x 5 days. He has a history of Radha's and this feels similar to exacerbations he has had in the past. He does not have any sick contacts. He had an earlier Radha's flare 3 years ago and has been seeing since then for management. 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[employer]) Immunizations History of Influenza Vaccine: Yes History of Tetanus Vaccine?: Yes History of Pneumococcal: Yes History of Hepatitis B Vaccine: No Multi-Drug Resistant Organisms History of MDRO: No Allergies Coded Allergies: No Known Allergies (Verified , 11/07/17) Home Medications Scheduled Aspirin (Aspirin Ec), 81 MG PO QPM Azathioprine (Azathioprine), 50 MG PO BID Calcium Carbonate-Vitamin D (Calcium 500 + D), 1 TAB PO QPM Cyanocobalamin (Vitamin B12 500MCG), 500 MCG PO DAILY Folic Acid (Folic Acid), 1 MG PO DAILY Latanoprost (Latanoprost), 1 DROP OPB HS Levothyroxine Sodium (Levothyroxine Sodium), 75 MCG PO QAM Nutritional Supplements (Glucosamine Complex), 1 TAB PO BID Prednisone Tab (Prednisone), 10 MG PO DAILY Pyridoxine (Vitamin B6), 100 MG PO DAILY Ranitidine (Zantac), 150 MG PO BID Simvastatin (Simvastatin), 40 MG PO DAILY Physical Exam Vital Signs Date Time Temp Pulse Resp B/P (MAP) Pulse Ox O2 Delivery O2 Flow Rate FiO2 11/07/17 14:38 71 24 118/66 98 Nasal Cannula 2.0 11/07/17 14:16 77 16 129/69 99 Room Air 11/07/17 13:36 85 Room Air 11/07/17 13:36 94 Nasal Cannula 4.0 11/07/17 13:30 72 11/07/17 13:04 Nasal Cannula 2.0 11/07/17 13:04 85 Room Air 11/07/17 12:52 88 Room Air 11/07/17 12:50 37.0 78 20 114/78 88 Room Air Diagnostics Laboratory Results Results Past 24 Hours Test 11/07/17 13:25 11/07/17 13:32 11/07/17 13:56 11/07/17 15:40 Range/Units White Blood Count 12.95 4.8-10.8 K/uL Red Blood Count 3.97 4.7-6.1 M/uL Hemoglobin 14.3 14.0-18.0 g/dL Hematocrit 41.4 42-52 % Mean Corpuscular Volume 104.3 80-100 fL Mean Corpuscular Hemoglobin 36.0 25-34 pg Mean Corpuscular Hemoglobin Concent 34.5 32-36 g/dl Platelet Count 211 130-400 K/uL Mean Platelet Volume 10.2 7.4-10.4 fL Neutrophils (%) (Auto) 91.8 % Lymphocytes (%) (Auto) 3.9 % Monocytes (%) (Auto) 3.4 % Eosinophils (%) (Auto) 0.1 % Basophils (%) (Auto) 0.2 % Neutrophils # (Auto) 11.89 1.4-6.5 K/uL Lymphocytes # (Auto) 0.50 1.2-3.4 K/uL Monocytes # (Auto) 0.44 0.11-0.59 K/uL Eosinophils # (Auto) 0.01 0-0.5 K/uL Basophils # (Auto) 0.03 0-0.2 K/uL RDW Standard Deviation 52.4 36.4-46.3 fL RDW Coefficient of Variation 13.7 11.5-14.5 % Immature Granulocyte % (Auto) 0.6 % Immature Granulocyte # (Auto) 0.08 0.00-0.02 K/uL Toxic Granulation 2+ Prothrombin Time 10.8 9.0-12.0 SECONDS Prothromb Time International Ratio 1.0 0.9-1.1 Activated Partial Thromboplast Time 32.1 21.0-31.0 SECONDS Partial Thromboplastin Ratio 1.2 Sodium Level 134 136-145 mmol/L Potassium Level 4.1 3.5-5.1 mmol/L Chloride Level 100 98-107 mmol/L Carbon Dioxide Level 26 21-32 mmol/L Anion Gap 8.0 3-11 mmol/L Blood Urea Nitrogen 27 7-18 mg/dl Creatinine 1.45 0.60-1.40 mg/dl Est Creatinine Clear Calc Drug Dose 42.0 ml/min Estimated GFR () 52.7 Estimated GFR (Non- 45.5 BUN/Creatinine Ratio 19.0 10-20 Random Glucose 118 70-99 mg/dl Calcium Level 9.8 8.5-10.1 mg/dl Total Bilirubin 1.1 0.2-1 mg/dl Aspartate Amino Transf (AST/SGOT) 79 15-37 U/L Alanine Aminotransferase (ALT/SGPT) 99 12-78 U/L Alkaline Phosphatase 80 45-117 U/L Troponin I < 0.015 0-0.045 ng/ml Pro-B-Type Natriuretic Peptide 317 0-1800 pg/ml Total Protein 7.6 6.4-8.2 gm/dl Albumin 3.0 3.4-5.0 gm/dl Globulin 4.6 2.5-4.0 gm/dl Albumin/Globulin Ratio 0.7 0.9-2 Bedside Lactic Acid Venous 2.02 0.90-1.70 mmol/L Arterial Blood pH 7.40 7.35-7.45 Arterial Blood Partial Pressure CO2 35 35-46 mmHg Arterial Blood Partial Pressure O2 92 80-95 mm/Hg Arterial Blood HCO3 22 19-24 mmol/L Arterial Blood Oxygen Saturation 96.6 90-95 % Arterial Blood Base Excess -2.7 -9-1.8 mEq/L Arterial Blood Gas Delivery 2L Dickson Test POS POS Influenza Type A Antigen Neg for Influ A NEG Influenza Type B Antigen Neg for Influ B NEG Microbiology Results 11/07/17 Blood Culture, Received Pending 11/07/17 Blood Culture, Received Pending Impression Assessment and Plan Mr. Abdi is a 77 year old man here for hypoxic respiratory failure secondary to Radha's disease exacerbation vs pna Wegeners vs PNA/ hypoxic respiratory failure - admit tele - O2 per protocol - IV levaquin, IVF, solumedrol - initial lactic acid 2, repeat in six hours - procalcitonin - flu pcr - continue azathioprine for now until Radha's flare can be r/o CKD per eecords - creatinine is at baseline Hypothyroidism - continue levothyroxine GERD - continue ranitidine Full code DVT proph heparin subq Resident Physician Supervision Note: Pt evaluated independently. I discussed the case with the CARBURETOR EXPERT and agree with the findings and plan as documented in the note. Any exceptions or clarifications are listed here: 77 y/o M Hx Radha's - initial dx 2002 - had been in remission for several years prior to 2017. Recently treated for cellulitis with broad spectrum antibiotics. Presenting with cough, fever, hypoxia - no clear acute infiltrates on CXR. A temp of 101.3 was confirmed - he is presently on treatment with prednisone and Imuran OE AAO x 3 S1,2 R Poor air movement - otherwise clear lungs NT, ND No CCE P: Pt placed on antibiotics due to immunocompromise, influ PCR is pending Breathing treatment and an 02 protocol provided We will continue Prednisone and Imuran as prescribed for time being - may wan to contact his application tester if DC is needed Renal function is approximately at baseline and will be trended Documented By: Matthew Brand Advanced Directives Existing Advance Directive: Yes Existing Living Will: Yes Existing Power of Hadoop Analyst: Yes ( Maryellen) Resuscitation Status FULL RESUSCITATION
[2017-11-07] MEDS ORDERED: ALBUT/IPRATROP 3MG/0.5MG NEB 3 ML VIAL INH PRN (17:30)
[2017-11-07] MEDS ORDERED: LEVOFLOXACIN CONSULT ACTIVE PRN (18:00)
[2017-11-07 18:43] VITALS: BP 133/74; PULSE 70; TEMP 36.8; O2SAT 95
[2017-11-07 19:37] VITALS: BP 114/78; PULSE 70; TEMP 37.3; O2SAT 95; Ht 177.8 cm; Wt 74.5 kg
[2017-11-07] MEDS ORDERED: LEVOFLOXACIN / D5W 750 MG in PREMIXED IN D5W 150 ML IV SCH (20:00)
[2017-11-07] MEDS: SODIUM CHLORIDE 0.9% 1000ML 1,000 ML IV SCH (20:10)
[2017-11-07] MEDS: LATANOPROST 0.005% OP SOLN 2.5 ML BTL OPB SCH (20:11)
[2017-11-07] MEDS: METHYLPREDNISOLONE IV 40 MG in SYRINGE 0 ML IV SCH (20:11)
[2017-11-07] MEDS: CALCIUM 600MG + VIT D 400 IU TAB PO SCH (20:12)
[2017-11-07] MEDS: GLUCOSAMINE SULFATE 500 MG CAP PO SCH (20:13)
[2017-11-07] MEDS: ASPIRIN 81 MG ECTAB PO SCH (20:13)
[2017-11-07] MEDS: RANITIDINE HCL 150 MG TAB PO SCH (20:14)
[2017-11-07] MEDS: SIMVASTATIN 40 MG TAB PO SCH (20:14)
[2017-11-07] MEDS: HEPARIN SOD 5000 UNIT/0.5 ML CARP SQ SCH (20:15)
[2017-11-07] MEDS ORDERED: VANCOMYCIN CONSULT ACTIVE PRN (20:30)
[2017-11-07] MEDS: ALBUT/IPRATROP 3MG/0.5MG NEB 3 ML VIAL INH SCH (20:35)
[2017-11-07 20:39] VITALS: PULSE 77; O2SAT 92
[2017-11-07] MEDS ORDERED: VANCOMYCIN INJ 1,000 MG in SODIUM CHLORIDE 0.9% 250ML 250 ML IV SCH (21:00)
[2017-11-07] MEDS ORDERED: AZATHIOPRINE 50 MG TAB PO SCH (21:00)
[2017-11-07 21:07] LABS: INFLUENZA A PCR Neg for Influ A (NEG); INFLUENZA B PCR Neg for Influ B (NEG)
[2017-11-08] VITALS (14 sets, daily range): BP systolic 104–132; BP diastolic 54–83; PULSE 60–70; TEMP 36.5–37.2; O2SAT 90–97
--- NOTE | 2017-11-08 01:11 | Progress Note ---
Progress Note Date of Service Nov 08, 2017. Progress Note asymp decrease in HR to 30 with rebound to 50s, bp stable ekg mag and bmp element of TREY?
[2017-11-08 02:04] LABS: CALCIUM 8.5 mg/dl (8.5-10.1); CREATININE 1.19 mg/dl (0.60-1.40)
[2017-11-08] MEDS: SODIUM CHLORIDE 0.9% 1000ML 1,000 ML IV SCH (04:13)
[2017-11-08] MEDS: LEVOTHYROXINE 75 MCG TAB PO SCH (04:35)
[2017-11-08 06:53] LABS: HEMATOCRIT 33.2 % (42-52); HEMOGLOBIN 11.3 g/dL (14.0-18.0); MEAN CELL VOLUME 103.8 fL (80-100); MEAN CORPUSCULAR HEMOGLOBIN 35.3 pg (25-34); MEAN PLATELET VOLUME 10.1 fL (7.4-10.4); PLATELET COUNT 192 K/uL (130-400); RED CELL DISTRIBUTION WIDTH CV 13.5 % (11.5-14.5); RED CELL DISTRIBUTION WIDTH SD 51.2 fL (36.4-46.3); WHITE BLOOD COUNT 10.98 K/uL (4.8-10.8)
[2017-11-08] MEDS: ALBUT/IPRATROP 3MG/0.5MG NEB 3 ML VIAL INH SCH ×4 (07:00→19:27)
[2017-11-08 07:27] LABS: CALCIUM 8.7 mg/dl (8.5-10.1); CREATININE 1.12 mg/dl (0.60-1.40); POTASSIUM 4.1 mmol/L (3.5-5.1)
--- NOTE | 2017-11-08 08:36 | Clinical Documentation Query ---
ELIEL Keating : CLINICAL DOCUMENTATION QUERY 77 year old man here for hypoxic respiratory failure secondary to Radha's disease exacerbation vs pna. Documentation includes CKD, not otherwise specified. Creatinine noted to be at baseline. Estimated GFR range of 44-62 ml/min from 12/30 to present. Please specify as clinically appropriate. In your clinical opinion is this patient being managed for: ( x ) Chronic kidney disease, stage 3 ( ) Not Agree ( ) Other explanation of clinical findings (Please Explain) ( ) Unable to determine (Please Define) ( ) Need to Discuss The medical record reflects the following clinical findings, treatment, and risk factors. Clinical Indicators: As above Treatment: Serial chemistries Risk Factors: Age Please clarify and document your clinical opinion in the progress notes and discharge summary. Terms such as "probable", "suspected", "likely", "questionable", "possible", or "still to be ruled out" are acceptable. IF IN AGREEMENT, YOU MUST DOCUMENT ABOVE DIAGNOSTIC STATEMENT IN DAILY PROGRESS NOTES AND DISCHARGE SUMMARY. This document is not part of the patient's record. Thank You, Lev Helm, RN [phone]
[2017-11-08] MEDS: RANITIDINE HCL 150 MG TAB PO SCH ×2 (08:56→20:58)
[2017-11-08] MEDS: METHYLPREDNISOLONE IV 40 MG in SYRINGE 0 ML IV SCH ×2 (08:56→20:56)
[2017-11-08] MEDS: GLUCOSAMINE SULFATE 500 MG CAP PO SCH ×2 (08:57→20:57)
[2017-11-08] MEDS: PYRIDOXINE HCL 50 MG TAB PO SCH (08:57)
[2017-11-08] MEDS: CYANOCOBALAMIN 500 MCG TAB (VIT B-12) PO SCH (08:58)
[2017-11-08] MEDS ORDERED: VANCOMYCIN INJ 1,750 MG in SODIUM CHLORIDE 0.9% 500ML 500 ML IV SCH (09:00)
[2017-11-08] MEDS: HEPARIN SOD 5000 UNIT/0.5 ML CARP SQ SCH ×2 (09:00→21:06)
--- NOTE | 2017-11-08 10:32 | Pharmacy Progress Note ---
Pharmacy Abx Dose Short Note Date of Service Nov 08, 2017. Assessment & Plan Assessment * 77 year old male receiving Vancomycin and Levofloxacin IV for treatment of community acquired pneumonia * Patient has h/o Radha's disease and is receiving immunosuppressant therapy ( Imuran + Prednisone). Per provider's documentation, pt was recently treated with abx for cellulitis * Pt c/o fever, cough and SOB x 5 days prior to presentation * CXR and CT read as presence of bilateral parenchymal infiltrates * Procalcitonin elevated, leukocytosis also noted on labs (however receiving steroids chronically) * Influenza A/B negative PCR and AG; BLCX's drawn, will order MRSA nasal swab * Sats on 2L O2 in 90-92% range this AM; RR 16-18; BP stable * Patient has been afebrile since admission Plan Vancomycin * 1000mg (13.4mg/kg) IV x 1 given yesterday at 1632 in ED * Provider consulted pharmacy at 2030 last evening, however no vancomycin given ? Renal fxn would have indicated need for redosing prior to 0700 today as pt did not receive a loading dose. Patient was loaded with 1750mg (23.5mg/kg) x 1 this AM when this was discovered. * Maintenance dose: 1250mg (16.8mg/kg) IV Q 18 hours * Goal trough level for pulm infxn : 15 to 20 mcg/mL * Trough level ordered for: 11/10/17 w/ maintenance dose Levofloxacin * eCrCl > 50cc/min; change dose to 750mg IV Q 24 hours * QTc 440 Pharmacy will continue to follow and will adjust dose/frequency as necessary. Thank you.
--- NOTE | 2017-11-08 11:16 | Pulmonary Consultation ---
History General Date of Service: Nov 08, 2017. Chief Complaint: multilobar pneumonia without hypoxia Stated Complaint: Pneumonia, Radha's Disease, Pulmonary HPI The patient is a 77 year old male who presents to [facility] with complaints of Pneumonia, Radha's Disease, Pulmonary. The patient's primary care provider is Dima Kebede M.D.. Mr. 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 The patient was originally diagnosed in 2002 after having chronic sinus infection requiring mastoidectomy. Pathology from the mastoid reflected giant cells and diagnosis was made by government affairs researcher. The patient then followed with rheumatology at [facility] until his water conservation specialist retired. The patient currently follows with Dr. Garcia with [facility]. History is as follows: 2002: Diagnosis and treatment with steroids and methotrexate. Patient then went into remission and was tapered off of steroids and methotrexate was discontinued Circa 2005: Patient had Radha's flare and was placed back on prednisone and changed to Cytoxan. This admission included lung involvement.ANCA was positive and ESR was 75. Patient did well and reports again going into remission. Circa 2009: Patient again had a flare and was placed back on prednisone and Cytoxan. He did well and was kept on suppressive prednisone and did well for a number of years. He again went into remission Circa 2012: Patient had another flare and was again treated with high-dose prednisone along with methotrexate. He again went into remission Circa 2016: Patient traveled to [place] and upon return developed upper respiratory infection and pneumonia. He was treated for the pneumonia and again had flare from the pneumonia and was placed back on prednisone as well as Cytoxan. 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 Induction phase started with Cytoxan and high-dose prednisone 04/27/16: Patient was referred to Dr. Garcia at this time his primary water conservation specialist who was retiring. Per Dr. Garcia's initial encounter note he was still having minor nosebleeds, ESR was 75, and ANCA continued be positive. He was continued on Cytoxan 100 mg daily and prednisone was increased to 30 mg twice daily. Over the next several months the Cytoxan was decreased to 50 mg daily and the prednisone was tapered as tolerated. It was noted that time that there was concern for Cytoxan toxicity. 02/03/17: Patient again declared to be in remission and placed on Imuran therapy and decrease prednisone. Patient was also noticed to have iritis bilaterally and establish with ophthalmology and was placed on prednisone eyedrops. It was noted that he had increased pressures which is being managed by ophthalmology 04/13/17: Patient was started on Azathioprine and continued on prednisone 10 mg daily for maintenance phase 05/17/17: Follow-up appointment with Dr. Garcia. Azathioprine increased from 50mg daily to 50mg twice daily. Prednisone maintained at 10mg daily. 07/19/17: Patient changed to Azathioprine 50 mg daily and prednisone continue 10 mg daily. Noted to be in two year maintenance phase started 02/2016 and to be completed 02/2018. 09/27/17: Patient noted to have peripheral neuropathy. Continue maintenance phase with Azathioprine and prednisone 10/19/17: Patient developed left lower extremity cellulitis secondary to open skin wound. He is placed on Keflex 500 mg twice daily. At this time he was referred to Dr. Lau in infectious disease who agreed with treatment. It should be noted the patient has not had bronchoscopy or any lung biopsy. He is unaware of any other organ manifestation. Since original diagnosis he has developed chronic kidney disease with a baseline creatinine above 1.5. He currently has no urinary complaints. Historian: patient, other (chart review) Review of Systems A total of 12 systems was reviewed and is negative other than as listed above in the HPI Constitutional: reports: no symptoms Eyes: reports: no symptoms, other (the patient used to have diplopia but anymore. This symptom was over 15 years ago no recurrence.) ENT: reports: other (history of epistaxis but not recently.) Cardiovascular: reports: no symptoms Respiratory: reports: cough, shortness of breath, other (although his shortness of breath has been stable for the past 6 years.) Gastrointestinal: reports: no symptoms Musculoskeletal: reports: other (muscular pain mainly in the forearms bilaterally but no recurrence.) Neurologic: reports: no symptoms Allergic / Immunologic: other (no skin rashes reported.) All Other Symptoms All Other Systems: Reviewed and Negative Past Medical History Past Medical History: Medical Problems: 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, pulmonary involvement without bronchoscopy or biopsy Recent left lower extremity cellulitis Chronic kidney disease Baseline creatinine 1.5 Bilateral iritis Remote tobacco abuse history in high school Past Medical History: other (vasculitis, chronic kidney disease.) Past Surgical History: Past surgical history: Left Mastoidectomy Left inguinal hernia repair Family History FH: alcohol abuse FH: lung cancer FH: lupus Social History Hx Tobacco Use In Past Year?: No Smoking Status: Former Smoker (physical) Drug Use: none Marital status: Housing status: lives with significant other 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[employer]) Immunizations History of Influenza Vaccine: Yes History of Tetanus Vaccine?: Yes History of Pneumococcal: Yes History of Hepatitis B Vaccine: No History of MDRO History of MDRO: No Allergies Coded Allergies: No Known Allergies (Verified , 11/07/17) Current Medications Reported Home Medications Medications Dose Route/Sig Max Daily Dose Days Date Category Prednisone 10 Mg Tab 10 Mg PO DAILY 06/27/17 Reported Azathioprine 50 Mg Tab 50 Mg PO BID 06/27/17 Reported Folic Acid 1 Mg Tab 1 Mg PO DAILY 06/27/17 Reported Simvastatin 40 Mg Tab 40 Mg PO DAILY 06/27/17 Reported Latanoprost 37 Drops/2.5 Ml Soln 1 Drop OPB HS 06/27/17 Reported Glucosamine Complex (Nutritional Supplements) 1 Tab Tab 1 Tab PO BID 11/14/15 Reported Calcium 500 + D (Calcium Carbonate-Vitamin D) 1 Tab Tab 1 Tab PO QPM 11/14/15 Reported Vitamin B6 (Pyridoxine HCl) 100 Mg Tab 100 Mg PO DAILY 11/14/15 Reported Vitamin B12 500MCG (Cyanocobalamin) 500 Mcg Tab 500 Mcg PO DAILY 11/14/15 Reported Levothyroxine Sodium 75 Mcg Tab 75 Mcg PO QAM 11/14/15 Reported Aspirin Ec (Aspirin) 81 Mg Tab 81 Mg PO QPM 11/14/15 Reported Zantac (Ranitidine HCl) 150 Mg Tab 150 Mg PO BID 11/14/15 Reported Physical Physical Exam Vital Signs: Date Time Temp Pulse Resp B/P (MAP) Pulse Ox O2 Delivery O2 Flow Rate FiO2 11/08/17 08:00 92 Room Air 2.0 11/08/17 07:31 36.7 68 18 122/67 (85) 92 Room Air 11/08/17 07:00 64 18 92 Room Air 11/08/17 04:20 37.0 60 16 109/64 (79) 90 Room Air 11/08/17 04:00 Nasal Cannula 2.0 11/08/17 00:25 37.2 65 16 104/54 (71) 90 Room Air 11/08/17 00:01 Nasal Cannula 2.0 11/07/17 20:39 77 16 92 Nasal Cannula 2.0 11/07/17 20:00 Nasal Cannula 2.0 11/07/17 19:37 37.3 70 18 114/78 95 Nasal Cannula 11/07/17 18:43 36.8 70 18 133/74 (93) 95 Nasal Cannula 2.0 11/07/17 18:09 61 18 147/73 95 Nasal Cannula 2.0 11/07/17 17:52 66 11/07/17 16:30 69 18 114/58 94 Nasal Cannula 2.0 11/07/17 14:38 71 24 118/66 98 Nasal Cannula 2.0 11/07/17 14:16 77 16 129/69 99 Room Air 11/07/17 13:36 85 Room Air 11/07/17 13:36 94 Nasal Cannula 4.0 11/07/17 13:30 72 11/07/17 13:04 Nasal Cannula 2.0 11/07/17 13:04 85 Room Air 11/07/17 12:52 88 Room Air 11/07/17 12:50 37.0 78 20 114/78 88 Room Air Weight in Kilograms: 74.5 GENERAL : No acute distress. Sitting in bedside chair EYES: No icterus, gaze conjugate. NOSE: No evidence of epistaxis. MOUTH: No lesions or candidiasis. NECK: Supple. No appreciation of carotid bruits or stridor LUNGS: CTA B/L, no wheezes, rales or rhonchi. Equal breath sounds throughout lung zones HEART: Regular, rate controlled ABDOMEN: Soft, NT, ND, BS Present EXTREMITIES: No LE edema, pedal pulses intact NEURO: A&OX3 General Appearance: NO APPARENT DISTRESS Eyes: PERRLA, NO DISCHARGE, EOMI Neck: NORMAL RANGE OF MOTION, NO TENDERNESS Respiratory: rhonchi, other (scattered) Cardiovasular: REGULAR RATE/RHYTHM, NORMAL S1S2, NO M/G/R, NO MURMUR Abdomen: NON TENDER, NO REBOUND Lower Extremities: NO EDEMA, other (1 healed ecthyma lesion.) Neuro: ALERT, ORIENTED x 3, NORMAL MOTOR EXAM, NORMAL SENSATION Diagnostics Labs Results Past 24 Hours Test 11/07/17 13:25 11/07/17 13:32 11/07/17 13:56 11/07/17 15:40 Range/Units White Blood Count 12.95 4.8-10.8 K/uL Red Blood Count 3.97 4.7-6.1 M/uL Hemoglobin 14.3 14.0-18.0 g/dL Hematocrit 41.4 42-52 % Mean Corpuscular Volume 104.3 80-100 fL Mean Corpuscular Hemoglobin 36.0 25-34 pg Mean Corpuscular Hemoglobin Concent 34.5 32-36 g/dl Platelet Count 211 130-400 K/uL Mean Platelet Volume 10.2 7.4-10.4 fL Neutrophils (%) (Auto) 91.8 % Lymphocytes (%) (Auto) 3.9 % Monocytes (%) (Auto) 3.4 % Eosinophils (%) (Auto) 0.1 % Basophils (%) (Auto) 0.2 % Neutrophils # (Auto) 11.89 1.4-6.5 K/uL Lymphocytes # (Auto) 0.50 1.2-3.4 K/uL Monocytes # (Auto) 0.44 0.11-0.59 K/uL Eosinophils # (Auto) 0.01 0-0.5 K/uL Basophils # (Auto) 0.03 0-0.2 K/uL RDW Standard Deviation 52.4 36.4-46.3 fL RDW Coefficient of Variation 13.7 11.5-14.5 % Immature Granulocyte % (Auto) 0.6 % Immature Granulocyte # (Auto) 0.08 0.00-0.02 K/uL Toxic Granulation 2+ Prothrombin Time 10.8 9.0-12.0 SECONDS Prothromb Time International Ratio 1.0 0.9-1.1 Activated Partial Thromboplast Time 32.1 21.0-31.0 SECONDS Partial Thromboplastin Ratio 1.2 Sodium Level 134 136-145 mmol/L Potassium Level 4.1 3.5-5.1 mmol/L Chloride Level 100 98-107 mmol/L Carbon Dioxide Level 26 21-32 mmol/L Anion Gap 8.0 3-11 mmol/L Blood Urea Nitrogen 27 7-18 mg/dl Creatinine 1.45 0.60-1.40 mg/dl Est Creatinine Clear Calc Drug Dose 42.0 ml/min Estimated GFR () 52.7 Estimated GFR (Non- 45.5 BUN/Creatinine Ratio 19.0 10-20 Random Glucose 118 70-99 mg/dl Calcium Level 9.8 8.5-10.1 mg/dl Total Bilirubin 1.1 0.2-1 mg/dl Aspartate Amino Transf (AST/SGOT) 79 15-37 U/L Alanine Aminotransferase (ALT/SGPT) 99 12-78 U/L Alkaline Phosphatase 80 45-117 U/L Troponin I < 0.015 0-0.045 ng/ml Pro-B-Type Natriuretic Peptide 317 0-1800 pg/ml Total Protein 7.6 6.4-8.2 gm/dl Albumin 3.0 3.4-5.0 gm/dl Globulin 4.6 2.5-4.0 gm/dl Albumin/Globulin Ratio 0.7 0.9-2 Procalcitonin 3.84 0-0.5 ng/ml Bedside Lactic Acid Venous 2.02 0.90-1.70 mmol/L Arterial Blood pH 7.40 7.35-7.45 Arterial Blood Partial Pressure CO2 35 35-46 mmHg Arterial Blood Partial Pressure O2 92 80-95 mm/Hg Arterial Blood HCO3 22 19-24 mmol/L Arterial Blood Oxygen Saturation 96.6 90-95 % Arterial Blood Base Excess -2.7 -9-1.8 mEq/L Arterial Blood Gas Delivery 2L Dickson Test POS POS Influenza Type A Antigen Neg for Influ A NEG Influenza Type B Antigen Neg for Influ B NEG Test 11/07/17 19:21 11/07/17 20:00 11/08/17 01:15 11/08/17 06:37 Range/Units Lactic Acid Level 2.1 1.6 0.4-2.0 mmol/L Influenza Type A (RT-PCR) Neg for Influ A NEG Influenza Type B (RT-PCR) Neg for Influ B NEG Sodium Level 137 139 136-145 mmol/L Potassium Level 4.0 4.1 3.5-5.1 mmol/L Chloride Level 107 108 98-107 mmol/L Carbon Dioxide Level 25 23 21-32 mmol/L Anion Gap 5.0 7.0 3-11 mmol/L Blood Urea Nitrogen 29 29 7-18 mg/dl Creatinine 1.19 1.12 0.60-1.40 mg/dl Est Creatinine Clear Calc Drug Dose 50.3 55.2 ml/min Estimated GFR () 66.9 72.0 Estimated GFR (Non- 57.8 62.1 BUN/Creatinine Ratio 24.6 26.0 10-20 Random Glucose 157 147 70-99 mg/dl Calcium Level 8.5 8.7 8.5-10.1 mg/dl Magnesium Level 2.4 1.8-2.4 mg/dl White Blood Count 10.98 4.8-10.8 K/uL Red Blood Count 3.20 4.7-6.1 M/uL Hemoglobin 11.3 14.0-18.0 g/dL Hematocrit 33.2 42-52 % Mean Corpuscular Volume 103.8 80-100 fL Mean Corpuscular Hemoglobin 35.3 25-34 pg Mean Corpuscular Hemoglobin Concent 34.0 32-36 g/dl RDW Standard Deviation 51.2 36.4-46.3 fL RDW Coefficient of Variation 13.5 11.5-14.5 % Platelet Count 192 130-400 K/uL Mean Platelet Volume 10.1 7.4-10.4 fL Microbiology Results 11/07/17 Blood Culture, Received Pending 11/07/17 Blood Culture, Received Pending Diagnostic Radiology (CHEST FOR PE) ANGIO WITH CT DOSE: 352.52 mGycm HISTORY: Chest pain dyspnea TECHNIQUE: Multiaxial CT images of the chest were performed following the intravenous administration of contrast to evaluate the pulmonary arteries. Maximal intensity projection images were also obtained. A dose lowering technique was utilized adhering to the principles of ALARA. COMPARISON STUDY: None. FINDINGS: The thoracic aorta shows moderate ectasia. No evidence for true aneurysm or dissection. All major arterial vasculature enhances appropriately. No major filling defect is appreciated. Patient has developed bilateral parenchymal infiltrative and peribronchial changes. These is seen diffusely throughout both hemithoraces. Several small reactive mediastinal nodes are present. Bulky adenopathy is not appreciated. Several hepatic cysts unchanged from the prior study. IMPRESSION: 1. Study is negative for pulmonary embolus. 2. Diffuse scattered bilateral parenchymal infiltrative changes. Electronically signed by: Colin Agustin M.D. 11/07/2017 3:15 PM Radiology Interpretation: other (I have reviewed CAT scan of the chest which revealed bilateral nodular disease with reticular nodular pattern and colesced multiple nodules to 4 with appear to be masses. No lymphadenopathy was reported. Minimal bronchiectasis noted.) Impression Assessment and Plan MULTILOBAR PNEUMONIA * Patient on immunotherapy with Azathioprine 50 mg daily and prednisone 10 mg daily * Recurrent pneumonia secondary to Radha's granulomatosis * No indication for bronchoscopy at this time * Pro calcitonin elevated at 3.84 * Continue to treat with levofloxacin and monitor clinically * Continue Vancomycin pending blood culture results - no history of MRSA or other MRO * Trend Procalcitonin * Repeat chest x-ray in the morning * Oxygenating well on room air * No fever or purulent sputum * Will need outpatient follow-up with pulmonary * Introduce patient and to Dr. Fajardo - will schedule follow-up appointment with him as an outpatient RADHA'S GRANULOMATOSIS * Currently in two-year maintenance phase to be completed February 2018 * Follows with Dr. Garcia from [facility] rheumatology * Continue Azathioprine and Solumedrol while inpatient. Discharge on Prednisone taper back to 10 mg PO Daily GERD * Ranitidine 100 mg twice daily at home * No complaints of reflux or heartburn * Positive diagnosis for hiatal hernia DVT PROPHYLAXIS * Heparin SQ Q12H Thank you for including us in the care of this patient. We will continue to follow along with you. Please refer to Dr. Sanford's addendum for any further recommendations. The patient was seen and examined separately, I agree with assessment of my colleague Alex as above. In summary, this is a 77-year-old gentleman who was diagnosed 15 years ago with a diagnosis of vasculitis. The patient diagnosis started with diplopia and fourth nerve injury. The patient did develop vasculitis according to him after an episode of Lyme disease. Throughout the years, the patient had episodes of epistaxis and was treated with high doses of steroids and cyclophosphamide. The patient developed side effects from cyclophosphamide including muscular pain as well as hematuria in the past without evidence of bladder cancer. The patient Cytoxan was stopped. The patient was changed to Imuran recently. He never had pulmonary disease and never had renal disease. His diagnosis was made based on serology and elevated Anca level, the patient has been followed in multiple institutions and most recently is being followed in our institution. Most recent Anca levels were in the range of 2.6 which is slightly elevated with 3 MP pattern. Eosinophils were normal. The patient did not have any episodes in the longer according to him where he required escalation of the disease. The patient presented to the hospital with constitutional symptoms that were nonspecific. The patient underwent a CAT scan of the chest which revealed reticulonodular disease with conglomeration of symptoms nodules that appear to be masslike lesion in the periphery of the lung. The patient denies any cough or sputum production to me. He felt generalized weakness but did not feel shortness of breath per se. He does not use oxygen. He was prescribed bronchodilators in the past once. On my exam, his lungs appeared to be with a scattered crackles but there is no wheezing, dullness or abnormal sounds except above. One small area in the skin that appear to be healing skin lesion in his left leg. Impression: #1 Anca vasculitis, currently asymptomatic, the patient does not have any lung lesion, no kidney involvement, no skin lesion, arthralgia or arthritis, no visual disturbances. At that appear to be representing limited Radha's. And it is stable and in remission. #2 minimal hematuria noted in the urine. Patient has a history of exposure to cyclophosphamide. Evaluation can be done as an outpatient by urology to rule out the possibility of early bladder CA. #3 the findings on the CAT scan mostly consistent with his diagnosis. No need to confirm the diagnosis of her nose in this patient as the patient has been having elevated 3 MP persistent. No escalation in the thyroid. The patient disease appeared To be well controlled with the current regimen including Imuran and steroids. I appreciate rheumatology input in that regard Dr. Garcia has been reviewed. #4 no evidence of ongoing infectious process at this point. #5 the patient needs follow-up with pulmonary to evaluate for the pulmonary nodules in the lung. No need to perform any procedure at this point. If the pulmonary nodules started increasing in size then open lung biopsy would be the only option. Thank you for your kind referral. Disposition plan per hospitalist team.
--- NOTE | 2017-11-08 12:24 | Hospitalist Progress Note ---
Hospitalist Progress Note Date of Service Nov 08, 2017. Subjective Pt evaluation today including: conversation w/ patient, conversation w/ family , conversation w/ independent marketing consultant (Pulmonology) Pt feeling better today, still coughing up sputum. No hemoptysis. Has weaned off O2. Tele with brief period of bradycardia to the mid-30s last night Constitutional: No fever All Other Systems: Reviewed and Negative Objective Vital Signs Date Time Temp Pulse Resp B/P (MAP) Pulse Ox O2 Delivery O2 Flow Rate FiO2 11/08/17 12:00 92 Room Air 2.0 11/08/17 11:09 68 18 94 Room Air 11/08/17 08:00 92 Room Air 2.0 11/08/17 07:31 36.7 68 18 122/67 (85) 92 Room Air 11/08/17 07:00 64 18 92 Room Air 11/08/17 04:20 37.0 60 16 109/64 (79) 90 Room Air 11/08/17 04:00 Nasal Cannula 2.0 11/08/17 00:25 37.2 65 16 104/54 (71) 90 Room Air 11/08/17 00:01 Nasal Cannula 2.0 11/07/17 20:39 77 16 92 Nasal Cannula 2.0 11/07/17 20:00 Nasal Cannula 2.0 11/07/17 19:37 37.3 70 18 114/78 95 Nasal Cannula 11/07/17 18:43 36.8 70 18 133/74 (93) 95 Nasal Cannula 2.0 11/07/17 18:09 61 18 147/73 95 Nasal Cannula 2.0 11/07/17 17:52 66 11/07/17 16:30 69 18 114/58 94 Nasal Cannula 2.0 11/07/17 14:38 71 24 118/66 98 Nasal Cannula 2.0 11/07/17 14:16 77 16 129/69 99 Room Air 11/07/17 13:36 85 Room Air 11/07/17 13:36 94 Nasal Cannula 4.0 11/07/17 13:30 72 11/07/17 13:04 Nasal Cannula 2.0 11/07/17 13:04 85 Room Air 11/07/17 12:52 88 Room Air 11/07/17 12:50 37.0 78 20 114/78 88 Room Air Physical Exam General Appearance: WD/WN, no apparent distress, + thin Eyes: normal inspection, EOMI, sclerae normal ENT: hearing grossly normal, pharynx normal Neck: supple, no adenopathy, trachea midline Respiratory/Chest: lungs clear, normal breath sounds, no respiratory distress, no accessory muscle use Cardiovascular: regular rate, rhythm, no edema, no gallop, no murmur Abdomen: normal bowel sounds, non tender, soft, + hernia (large reducible, nontender umbilical hernia) Extremities: no calf tenderness, + swelling (trace pitting edema bilat in legs to knees, left anterior tibia with small, scabbed over wound 1 cm without surrounding erythema) Neurologic/Psychiatric: alert, normal mood/affect, oriented x 3 Skin: normal color, warm/dry, no rash Lymphatic: no adenopathy Laboratory Results Last 24 Hours Test 11/07/17 13:25 11/07/17 13:32 11/07/17 13:56 11/07/17 15:40 White Blood Count 12.95 K/uL Red Blood Count 3.97 M/uL Hemoglobin 14.3 g/dL Hematocrit 41.4 % Mean Corpuscular Volume 104.3 fL Mean Corpuscular Hemoglobin 36.0 pg Mean Corpuscular Hemoglobin Concent 34.5 g/dl Platelet Count 211 K/uL Mean Platelet Volume 10.2 fL Neutrophils (%) (Auto) 91.8 % Lymphocytes (%) (Auto) 3.9 % Monocytes (%) (Auto) 3.4 % Eosinophils (%) (Auto) 0.1 % Basophils (%) (Auto) 0.2 % Neutrophils # (Auto) 11.89 K/uL Lymphocytes # (Auto) 0.50 K/uL Monocytes # (Auto) 0.44 K/uL Eosinophils # (Auto) 0.01 K/uL Basophils # (Auto) 0.03 K/uL RDW Standard Deviation 52.4 fL RDW Coefficient of Variation 13.7 % Immature Granulocyte % (Auto) 0.6 % Immature Granulocyte # (Auto) 0.08 K/uL Toxic Granulation 2+ Prothrombin Time 10.8 SECONDS Prothromb Time International Ratio 1.0 Activated Partial Thromboplast Time 32.1 SECONDS Partial Thromboplastin Ratio 1.2 Sodium Level 134 mmol/L Potassium Level 4.1 mmol/L Chloride Level 100 mmol/L Carbon Dioxide Level 26 mmol/L Anion Gap 8.0 mmol/L Blood Urea Nitrogen 27 mg/dl Creatinine 1.45 mg/dl Est Creatinine Clear Calc Drug Dose 42.0 ml/min Estimated GFR () 52.7 Estimated GFR (Non- 45.5 BUN/Creatinine Ratio 19.0 Random Glucose 118 mg/dl Calcium Level 9.8 mg/dl Total Bilirubin 1.1 mg/dl Aspartate Amino Transf (AST/SGOT) 79 U/L Alanine Aminotransferase (ALT/SGPT) 99 U/L Alkaline Phosphatase 80 U/L Troponin I < 0.015 ng/ml Pro-B-Type Natriuretic Peptide 317 pg/ml Total Protein 7.6 gm/dl Albumin 3.0 gm/dl Globulin 4.6 gm/dl Albumin/Globulin Ratio 0.7 Procalcitonin 3.84 ng/ml Bedside Lactic Acid Venous 2.02 mmol/L Arterial Blood pH 7.40 Arterial Blood Partial Pressure CO2 35 mmHg Arterial Blood Partial Pressure O2 92 mm/Hg Arterial Blood HCO3 22 mmol/L Arterial Blood Oxygen Saturation 96.6 % Arterial Blood Base Excess -2.7 mEq/L Arterial Blood Gas Delivery 2L Dickson Test POS Influenza Type A Antigen Neg for Influ A Influenza Type B Antigen Neg for Influ B Test 11/07/17 19:21 11/07/17 20:00 11/08/17 01:15 11/08/17 06:37 Lactic Acid Level 2.1 mmol/L 1.6 mmol/L Influenza Type A (RT-PCR) Neg for Influ A Influenza Type B (RT-PCR) Neg for Influ B Sodium Level 137 mmol/L 139 mmol/L Potassium Level 4.0 mmol/L 4.1 mmol/L Chloride Level 107 mmol/L 108 mmol/L Carbon Dioxide Level 25 mmol/L 23 mmol/L Anion Gap 5.0 mmol/L 7.0 mmol/L Blood Urea Nitrogen 29 mg/dl 29 mg/dl Creatinine 1.19 mg/dl 1.12 mg/dl Est Creatinine Clear Calc Drug Dose 50.3 ml/min 55.2 ml/min Estimated GFR () 66.9 72.0 Estimated GFR (Non- 57.8 62.1 BUN/Creatinine Ratio 24.6 26.0 Random Glucose 157 mg/dl 147 mg/dl Calcium Level 8.5 mg/dl 8.7 mg/dl Magnesium Level 2.4 mg/dl White Blood Count 10.98 K/uL Red Blood Count 3.20 M/uL Hemoglobin 11.3 g/dL Hematocrit 33.2 % Mean Corpuscular Volume 103.8 fL Mean Corpuscular Hemoglobin 35.3 pg Mean Corpuscular Hemoglobin Concent 34.0 g/dl RDW Standard Deviation 51.2 fL RDW Coefficient of Variation 13.5 % Platelet Count 192 K/uL Mean Platelet Volume 10.1 fL Assessment and Plan This pt is a 77 y/o M 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 Recently treated for cellulitis of the left leg with broad spectrum antibiotics. Presenting with cough, fever, hypoxia - no clear acute infiltrates on CXR, but CTA Chest confirms bilateral pulm infiltrates. A temp of 101.3 was confirmed at home - he is presently on treatment with prednisone and Imuran Acute hypoxemic respiratory failure/Bilateral PNA/Radha's granulomatosis-Flu swab negative, CTA Chest confirms bilat infiltrates, leukocytosis improving, PCT elevated at 3.84. - now weaned off O2, improving on IV steroids and Levaquin -continue IV steroids and weanback to baseline prednisone 10mg -continue Levaquin for 7 day course -Pulmonary consult placed given underlying lung disease and concern for possibility of flare of Radha's -His primary Rheum is out of town as per pt-called and left Dr. 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 No proteinuria previously -folllow PRP -renally dose meds -avoid nephrotoxins Hypothyroidism-TSH normal in 07/2017 - continue levothyroxine home dose GERD-stable - continue ranitidine Full code DVT proph heparin subq
--- NOTE | 2017-11-08 18:19 | Rheumatology Consultation ---
Rheumatology Consultation Date of Consultation: Nov 08, 2017. Requesting Physician: Dr Mena Attending Physician: Dr Mena Reason for Consultation: H/o GPA (shana's) - presented with fevers, malaise, cough - ? 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 He was initially treated by Dr Varela up until he retired and then switched to Dr Veronica Garcia. He was initially treated with steroids and MTX but over the years has received cytoxan for several GPA flares. He has more recently been on imuran 50mg daily and pred 10mg daily for maintenance. He has had several minor flares of his GPA sicne starting care with Dr Garcia. he reports that his imuran dose has been up to 100mg daily but was decreased back to 50mg daily. He has never had any renal involvement that he is aware of. 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 Prior to this presentation he was treated for a left lower leg cellulitis that started after a leg trauma and wound. he was treated with keflex that was successful but at the end of the abx he started to feel feverish and fatigued. He reports this was similar to other episodes of his shana's. he had several days of symptoms but by monday he started to feel better, He had contacted Dr Garcia's office to be seen but she was away at a conference and was not scheduled until next . he presented yesterday to [facility] with fevers up to 101, malaise and cough. He was noted to be in respiratory failure and had elevated lactic acid. CT angio showed no PE's but bilateral pulmonary infiltrates - ? vasculitic related vs infectious. he was seen by pulmonology today and given his improvement with fluids, IV steroids and abx no bronch was set up. He reports that he is 100% better than he was yesterday. he still has a productive cough but no hemoptysis. no hematuria. Labs and imaging was reviewed as well as other clinic notes. He was examined at the bedside sitting in a chair - no longer requiring O2. He has never had a vasculitic rash and is not having any joint related issues. 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[employer]) Review of Systems Constitutional: + fever, + chills, + weakness Eyes: + diplopia (h/o of this), No redness ENT: No unusual epistaxis Respiratory: + cough, + sputum, + dyspnea on exertion, No hemoptysis Cardiac: No chest pain Abdomen: No pain, No nausea Musculoskeletal: + see HPI Skin: + see HPI, No rash All Other Systems: Reviewed and Negative Allergies Coded Allergies: No Known Allergies (Verified , 11/07/17) Medications Current Inpatient Medications Medications (Trade) Dose Ordered Sig/Luis Miguel Route Start Time Stop Time Status Last Admin Dose Admin Ioversol (Optiray 320) 100 ml UD PRN IV 11/07/17 14:45 11/11/17 14:44 Heparin Sodium (Porcine) (Heparin Sq 5000 Unit/0.5ml) 5,000 unit Q12 SQ 11/07/17 21:00 12/07/17 20:59 11/08/17 09:00 5,000 UNIT Acetaminophen (Tylenol Tab) 650 mg Q4H PRN PO 11/07/17 16:45 12/07/17 16:44 Aspirin (Ecotrin Tab) 81 mg QPM PO 11/07/17 21:00 12/07/17 20:59 11/07/17 20:13 81 MG Azathioprine (Imuran Tab) 50 mg BID PO 11/07/17 21:00 12/07/17 20:59 Future Hold 11/07/17 20:13 50 MG Cyanocobalamin (Vitamin B-12 Tab) 500 mcg DAILY PO 11/08/17 09:00 12/08/17 08:59 11/08/17 08:58 500 MCG Folic Acid (Folvite Tab) 1 mg DAILY PO 11/08/17 09:00 12/08/17 08:59 11/08/17 08:57 1 MG Latanoprost (Xalatan Oph Soln) 1 drops HS OPB 11/07/17 21:00 12/07/17 20:59 11/07/17 20:11 1 DROPS Levothyroxine Sodium (Synthroid Tab) 75 mcg DAILYBB PO 11/08/17 06:00 12/08/17 06:59 11/08/17 04:35 75 MCG Pyridoxine HCl (Vitamin B-6 Tab) 100 mg DAILY PO 11/08/17 09:00 12/08/17 08:59 11/08/17 08:57 100 MG Ranitidine HCl (zANTac TAB) 150 mg BID PO 11/07/17 21:00 12/07/17 20:59 11/08/17 08:56 150 MG Simvastatin (Zocor Tab) 40 mg HS PO 11/07/17 21:00 12/07/17 20:59 11/07/17 20:14 40 MG Calcium/Vitamin D (Caltrate Plus Tab) 1 tab QPM PO 11/07/17 21:00 12/07/17 20:59 11/07/17 20:12 1 TAB Glucosamine Sulfate (Glucosamine Cap) 500 mg BID PO 11/07/17 21:00 12/07/17 20:59 11/08/17 08:57 500 MG Albuterol/ Ipratropium (Duoneb) 3 ml QIDR INH 11/07/17 20:00 12/07/17 19:59 11/08/17 14:30 3 ML Methylprednisolone Sodium Succinate 40 mg/Syringe 0.64 ml @ 1.5 mls/min BID IV 11/07/17 21:00 12/07/17 20:59 11/08/17 08:56 1.5 MLS/MIN Albuterol/ Ipratropium (Duoneb) 3 ml Q2H PRN INH 11/07/17 17:30 12/07/17 17:29 Levofloxacin (Consult) 1 ea UD PRN N/A 11/07/17 18:00 12/07/17 17:59 Miscellaneous Information (Consult) 1 ea UD PRN N/A 11/07/17 20:30 12/07/17 20:29 Levofloxacin 750 mg/Prmx 150 ml @ 100 mls/hr Q24H IV 11/08/17 20:00 11/13/17 21:29 Vancomycin HCl 1250 mg/Sodium Chloride 275 ml @ 125 mls/hr Q18H IV 11/09/17 04:00 2/1/18 03:59 Physical Exam Date Time Temp Pulse Resp B/P (MAP) Pulse Ox O2 Delivery O2 Flow Rate FiO2 11/08/17 16:00 92 Room Air 2.0 11/08/17 15:47 36.5 67 18 125/70 (88) 92 Room Air 11/08/17 14:30 66 18 97 Room Air 11/08/17 12:18 36.7 70 18 132/73 (92) 94 Room Air 11/08/17 12:00 92 Room Air 2.0 11/08/17 11:09 68 18 94 Room Air 11/08/17 08:00 92 Room Air 2.0 11/08/17 07:31 36.7 68 18 122/67 (85) 92 Room Air 11/08/17 07:00 64 18 92 Room Air 11/08/17 04:20 37.0 60 16 109/64 (79) 90 Room Air 11/08/17 04:00 Nasal Cannula 2.0 11/08/17 00:25 37.2 65 16 104/54 (71) 90 Room Air 11/08/17 00:01 Nasal Cannula 2.0 11/07/17 20:39 77 16 92 Nasal Cannula 2.0 11/07/17 20:00 Nasal Cannula 2.0 11/07/17 19:37 37.3 70 18 114/78 95 Nasal Cannula 11/07/17 18:43 36.8 70 18 133/74 (93) 95 Nasal Cannula 2.0 11/07/17 18:09 61 18 147/73 95 Nasal Cannula 2.0 General Appearance: WD/WN, no apparent distress Eyes: bilateral eyes normal inspection, bilateral eyes PERRL, bilateral eyes EOMI ENT: normal ENT inspection, hearing grossly normal, TMs normal, pharynx normal Neck: supple, no adenopathy, trachea midline Respiratory: chest non-tender, no respiratory distress, + pertinent finding ( some course breath sounds but overall clear) Cardiovascular: regular rate, rhythm, no edema, no murmur Abdomen: normal bowel sounds, non tender, soft Musculoskeletal: no synovitis or effusions Neurologic/Psychiatric: alert, normal mood/affect, oriented x 3 Skin: normal color, warm/dry, no rash Laboratory Results Last 24 Hours Test 11/07/17 19:21 11/07/17 20:00 11/08/17 01:15 11/08/17 06:37 Lactic Acid Level 2.1 mmol/L 1.6 mmol/L Influenza Type A (RT-PCR) Neg for Influ A Influenza Type B (RT-PCR) Neg for Influ B Sodium Level 137 mmol/L 139 mmol/L Potassium Level 4.0 mmol/L 4.1 mmol/L Chloride Level 107 mmol/L 108 mmol/L Carbon Dioxide Level 25 mmol/L 23 mmol/L Anion Gap 5.0 mmol/L 7.0 mmol/L Blood Urea Nitrogen 29 mg/dl 29 mg/dl Creatinine 1.19 mg/dl 1.12 mg/dl Est Creatinine Clear Calc Drug Dose 50.3 ml/min 55.2 ml/min Estimated GFR () 66.9 72.0 Estimated GFR (Non- 57.8 62.1 BUN/Creatinine Ratio 24.6 26.0 Random Glucose 157 mg/dl 147 mg/dl Calcium Level 8.5 mg/dl 8.7 mg/dl Magnesium Level 2.4 mg/dl White Blood Count 10.98 K/uL Red Blood Count 3.20 M/uL Hemoglobin 11.3 g/dL Hematocrit 33.2 % Mean Corpuscular Volume 103.8 fL Mean Corpuscular Hemoglobin 35.3 pg Mean Corpuscular Hemoglobin Concent 34.0 g/dl RDW Standard Deviation 51.2 fL RDW Coefficient of Variation 13.5 % Platelet Count 192 K/uL Mean Platelet Volume 10.1 fL Assessment & Plan Assessment & Plan: Assessment: Mr Abdi is a 77 y/o male with known GPA who presented with infectious like symptoms - fevers, malaise, cough, SOB vs GPA flare found to be in respiratory distress and hypoxemic. He has responded very well to IV hydration, abx and IV steroids. currently his imuran is being held. CT scan consistent with pulmonary infiltrates but no cavitary lesions noted. He is doing much better today and I wonder if this was more of an infectious process vs a GPA flare. regardless he is much better today. 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 I feel he can be restarted on his home medications at the time of discharge and he has follow up with Dr Garcia next week. Plan: 1. can resume pred 10mg daily and imuran 50mg daily at the time of discharge 2. already has return appt with Dr Garcia next 3. thank you for the consult and involving me in this patient's care 4. case will be discussed with primary service as well
[2017-11-08] MEDS ORDERED: LEVOFLOXACIN / D5W 750 MG in PREMIXED IN D5W 150 ML IV SCH (20:00)
[2017-11-08] MEDS: CALCIUM 600MG + VIT D 400 IU TAB PO SCH (20:57)
[2017-11-08] MEDS: LATANOPROST 0.005% OP SOLN 2.5 ML BTL OPB SCH (20:57)
[2017-11-08] MEDS: ASPIRIN 81 MG ECTAB PO SCH (20:57)
[2017-11-08] MEDS: SIMVASTATIN 40 MG TAB PO SCH (20:58)
[2017-11-09] VITALS (16 sets, daily range): BP systolic 104–134; BP diastolic 53–73; PULSE 58–79; TEMP 36.3–37; O2SAT 92–96
[2017-11-09] MEDS ORDERED: VANCOMYCIN INJ 1,250 MG in SODIUM CHLORIDE 0.9% 250ML 250 ML IV SCH (04:00)
[2017-11-09] MEDS: LEVOTHYROXINE 75 MCG TAB PO SCH (04:51)
[2017-11-09 05:49] LABS: HEMATOCRIT 33.2 % (42-52); MEAN CELL VOLUME 104.1 fL (80-100); MEAN CORPUSCULAR HEMOGLOBIN 34.5 pg (25-34); MEAN CORPUSCULAR HGB CONC 33.1 g/dl (32-36); MEAN PLATELET VOLUME 10.3 fL (7.4-10.4); PLATELET COUNT 210 K/uL (130-400); RED CELL DISTRIBUTION WIDTH CV 13.5 % (11.5-14.5); RED CELL DISTRIBUTION WIDTH SD 51.6 fL (36.4-46.3); WHITE BLOOD COUNT 13.91 K/uL (4.8-10.8)
[2017-11-09 06:10] LABS: CALCIUM 8.6 mg/dl (8.5-10.1); CREATININE 1.18 mg/dl (0.60-1.40); POTASSIUM 4.5 mmol/L (3.5-5.1)
[2017-11-09] MEDS: ALBUT/IPRATROP 3MG/0.5MG NEB 3 ML VIAL INH SCH ×4 (07:19→19:08)
--- NOTE | 2017-11-09 08:17 | DIAGNOSTIC IMAGING REPORT ---
CHEST 2 VIEWS ROUTINE HISTORY: Pneumonia. Follow-up. COMPARISON: Chest 11/07/2017. FINDINGS: No pneumothorax. No pleural effusions. The heart is normal in size. No evidence for pulmonary edema. Bilateral peripheral airspace opacities, right greater the left, persist. No new areas of focal consolidation identified. Mild reticulonodular interstitial thickening is again noted. IMPRESSION: No change in the interstitial thickening and scattered peripheral airspace opacities. Electronically signed by: Maico Mejia M.D. 11/09/2017 8:16 AM Dictated Date/Time: 11/09/2017 8:14 AM
[2017-11-09] MEDS: METHYLPREDNISOLONE IV 40 MG in SYRINGE 0 ML IV SCH (08:24)
[2017-11-09] MEDS: GLUCOSAMINE SULFATE 500 MG CAP PO SCH ×2 (08:25→21:07)
[2017-11-09] MEDS: RANITIDINE HCL 150 MG TAB PO SCH ×2 (08:25→21:08)
[2017-11-09] MEDS: PYRIDOXINE HCL 50 MG TAB PO SCH (08:25)
[2017-11-09] MEDS: CYANOCOBALAMIN 500 MCG TAB (VIT B-12) PO SCH (08:25)
[2017-11-09] MEDS: HEPARIN SOD 5000 UNIT/0.5 ML CARP SQ SCH ×2 (08:26→21:12)
--- NOTE | 2017-11-09 10:46 | Consultant Recommendations ---
[employer] Recommendations Date of Service Nov 09, 2017. [employer] Recommendations Follow up with Dr. Fajardo in pulmonary 11/23/17 at 2:45pm
--- NOTE | 2017-11-09 11:41 | Hospitalist Progress Note ---
Hospitalist Progress Note Date of Service Nov 09, 2017. Subjective Pt evaluation today including: conversation w/ patient, conversation w/ family Pt feeling better. Is still having productive yellow sputum into a bedside cup, no hemoptysis. Denies any other problems. Tele with SB to the mid 40s overnight, sinus rhythm 50s-70s during daytime All Other Systems: Reviewed and Negative Objective Vital Signs Date Time Temp Pulse Resp B/P (MAP) Pulse Ox O2 Delivery O2 Flow Rate FiO2 11/09/17 10:59 36.8 58 22 126/72 (90) 95 Room Air 11/09/17 08:00 92 Room Air 2.0 11/09/17 07:57 36.8 61 16 118/65 (82) 93 Room Air 11/09/17 07:32 69 18 95 Room Air 11/09/17 07:19 67 18 95 Room Air 11/09/17 04:00 37.0 61 17 104/53 (70) 93 Room Air 11/09/17 04:00 Room Air 11/09/17 00:20 36.7 61 18 130/65 (86) 94 Room Air 11/09/17 00:01 94 Room Air 11/08/17 20:00 96 Room Air 11/08/17 19:41 36.7 64 20 124/83 (97) 96 Room Air 11/08/17 19:28 60 18 96 Room Air 11/08/17 16:00 92 Room Air 2.0 11/08/17 15:47 36.5 67 18 125/70 (88) 92 Room Air 11/08/17 14:30 66 18 97 Room Air 11/08/17 12:18 36.7 70 18 132/73 (92) 94 Room Air 11/08/17 12:00 92 Room Air 2.0 Physical Exam General Appearance: no apparent distress (sitting in bedside chair entertaining visitors), + thin Eyes: normal inspection, sclerae normal ENT: + pertinent finding (SOBOBA) Neck: trachea midline Respiratory/Chest: no respiratory distress, no accessory muscle use, + crackles (at left base, +exp wheeze at right upper lung field) Cardiovascular: regular rate, rhythm, no edema, no gallop, no murmur Abdomen: normal bowel sounds, non tender, soft, + hernia (large umbilical hernia, soft, reducible) Extremities: normal inspection, no pedal edema, no calf tenderness Neurologic/Psychiatric: alert, normal mood/affect, oriented x 3 Skin: normal color, warm/dry, no rash, + pertinent finding (left anterior tibia wound well healed) Laboratory Results Last 24 Hours Test 11/09/17 05:17 White Blood Count 13.91 K/uL Red Blood Count 3.19 M/uL Hemoglobin 11.0 g/dL Hematocrit 33.2 % Mean Corpuscular Volume 104.1 fL Mean Corpuscular Hemoglobin 34.5 pg Mean Corpuscular Hemoglobin Concent 33.1 g/dl RDW Standard Deviation 51.6 fL RDW Coefficient of Variation 13.5 % Platelet Count 210 K/uL Mean Platelet Volume 10.3 fL Sodium Level 141 mmol/L Potassium Level 4.5 mmol/L Chloride Level 111 mmol/L Carbon Dioxide Level 24 mmol/L Anion Gap 6.0 mmol/L Blood Urea Nitrogen 29 mg/dl Creatinine 1.18 mg/dl Est Creatinine Clear Calc Drug Dose 52.4 ml/min Estimated GFR () 67.6 Estimated GFR (Non- 58.3 BUN/Creatinine Ratio 24.5 Random Glucose 138 mg/dl Calcium Level 8.6 mg/dl Procalcitonin 1.26 ng/ml Assessment and Plan This pt is a 77 y/o M 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 Recently treated for cellulitis of the left leg with broad spectrum antibiotics. Presenting with cough, fever, hypoxia - no clear acute infiltrates on CXR, but CTA Chest confirms bilateral pulm infiltrates. A temp of 101.3 was confirmed at home - he is presently on treatment with prednisone and Imuran Acute hypoxemic respiratory failure/Suspected Bilateral PNA/Radha's granulomatosis-Flu swab negative, CTA Chest confirms bilat infiltrates, leukocytosis improving, PCT elevated at 3.84 and now trending downward on abx and IV steroids. - now weaned off O2, improving on IV steroids and Levaquin, Vanco. Pulm thinks not infectious process. Could be a viral syndrome? MRSA swab nose negative Pt reports some sputum production, no hemoptysis, improving Discussion with Pulm today--> states he does NOT feel that pt has either PNA or progression of his Radha's and recommends stopping all abx, tapering back to home dose of prednisone, f/u with Rheum as outpt. -continue IV steroids and wean down to 40mg IV daily, then eventually back to baseline prednisone 10mg -dc Vanco and Levaquin today as per Pulm recommendations -Pulmonary consult appreciated -His primary Rheum is out of town as per pt-called and spoke wit Dr. Garcia who [facility]appreciate recommendations as d/w Dr. Acosta to return to home Imuran and prednisone upon discharge -dcd IVFs -ok to continue azathioprine on discharge Follow up with Dr. 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 No proteinuria previously. Has a h/o cyclophosphamide use and hematuria. -follow UA as outpt, consider referral to Urology for evaluation for bladder CA given increased risk with previous cyclophosphamide use -folllow PRP -renally dose meds -avoid nephrotoxins Hypothyroidism-TSH normal in 07/2017 - continue levothyroxine home dose GERD-stable - continue ranitidine Full code DVT proph heparin subq Dispo-transfer to medical floor today, can likely dc to home tomorrow
--- NOTE | 2017-11-09 12:36 | Pulmonology Progress Note ---
Pulmonary Progress Note Date of Service Nov 09, 2017. Attending Dr. Sanford Subjective The patient denies any respiratory symptoms, he is ambulatory, not using oxygen and he is not hypoxic with ambulation. No cough and no sputum production. No URI symptoms. Objective 11/09/2017 physical exam revealed stable vital signs, O2 saturation 95% on room air, no lymphadenopathy, heart examination S1-S2 regular rate and rhythm, trace edema in the periphery, lung exam with this catheter crackles with no wheezing. 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 #2 no evidence of infectious process, may stop antibiotics. #3 chronic kidney disease. Plan: #1 change steroids to prednisone 40 mg by mouth daily. Taper can be done as an outpatient by rheumatology. #2 continue with the treatment for vasculitis. #3 ambulate the patient. #4 no further recommendations from pulmonary standpoint. #5 continue to follow 3 MP periodically. #6 patient can be disposition to home. Thank you for your kind referral. Data Medications: Current Inpatient Medications Medications (Trade) Dose Ordered Sig/Luis Miguel Route Start Time Stop Time Status Last Admin Dose Admin Ioversol (Optiray 320) 100 ml UD PRN IV 11/07/17 14:45 11/11/17 14:44 Heparin Sodium (Porcine) (Heparin Sq 5000 Unit/0.5ml) 5,000 unit Q12 SQ 11/07/17 21:00 12/07/17 20:59 11/09/17 08:26 5,000 UNIT Acetaminophen (Tylenol Tab) 650 mg Q4H PRN PO 11/07/17 16:45 12/07/17 16:44 Aspirin (Ecotrin Tab) 81 mg QPM PO 11/07/17 21:00 12/07/17 20:59 11/08/17 20:57 81 MG Azathioprine (Imuran Tab) 50 mg BID PO 11/07/17 21:00 12/07/17 20:59 Future Hold 11/07/17 20:13 50 MG Cyanocobalamin (Vitamin B-12 Tab) 500 mcg DAILY PO 11/08/17 09:00 12/08/17 08:59 11/09/17 08:25 500 MCG Folic Acid (Folvite Tab) 1 mg DAILY PO 11/08/17 09:00 12/08/17 08:59 11/09/17 08:24 1 MG Latanoprost (Xalatan Oph Soln) 1 drops HS OPB 11/07/17 21:00 12/07/17 20:59 11/08/17 20:57 1 DROPS Levothyroxine Sodium (Synthroid Tab) 75 mcg DAILYBB PO 11/08/17 06:00 12/08/17 06:59 11/09/17 04:51 75 MCG Pyridoxine HCl (Vitamin B-6 Tab) 100 mg DAILY PO 11/08/17 09:00 12/08/17 08:59 11/09/17 08:25 100 MG Ranitidine HCl (zANTac TAB) 150 mg BID PO 11/07/17 21:00 12/07/17 20:59 11/09/17 08:25 150 MG Simvastatin (Zocor Tab) 40 mg HS PO 11/07/17 21:00 12/07/17 20:59 11/08/17 20:58 40 MG Calcium/Vitamin D (Caltrate Plus Tab) 1 tab QPM PO 11/07/17 21:00 12/07/17 20:59 11/08/17 20:57 1 TAB Glucosamine Sulfate (Glucosamine Cap) 500 mg BID PO 11/07/17 21:00 12/07/17 20:59 11/09/17 08:25 500 MG Albuterol/ Ipratropium (Duoneb) 3 ml QIDR INH 11/07/17 20:00 12/07/17 19:59 11/09/17 11:24 3 ML Albuterol/ Ipratropium (Duoneb) 3 ml Q2H PRN INH 11/07/17 17:30 12/07/17 17:29 Methylprednisolone Sodium Succinate 40 mg/Syringe 0.64 ml @ 1.5 mls/min Q24H IV 11/10/17 09:00 12/10/17 08:59 Vital Signs: Date Time Temp Pulse Resp B/P (MAP) Pulse Ox O2 Delivery O2 Flow Rate FiO2 11/09/17 12:00 92 Room Air 2.0 11/09/17 11:25 69 18 96 Room Air 11/09/17 10:59 36.8 58 22 126/72 (90) 95 Room Air 11/09/17 08:00 92 Room Air 2.0 11/09/17 07:57 36.8 61 16 118/65 (82) 93 Room Air 11/09/17 07:32 69 18 95 Room Air 11/09/17 07:19 67 18 95 Room Air 11/09/17 04:00 37.0 61 17 104/53 (70) 93 Room Air 11/09/17 04:00 Room Air 11/09/17 00:20 36.7 61 18 130/65 (86) 94 Room Air 11/09/17 00:01 94 Room Air 11/08/17 20:00 96 Room Air 11/08/17 19:41 36.7 64 20 124/83 (97) 96 Room Air 11/08/17 19:28 60 18 96 Room Air 11/08/17 16:00 92 Room Air 2.0 11/08/17 15:47 36.5 67 18 125/70 (88) 92 Room Air 11/08/17 14:30 66 18 97 Room Air Laboratory Results: Last 24 Hours Test 11/09/17 05:17 White Blood Count 13.91 K/uL Red Blood Count 3.19 M/uL Hemoglobin 11.0 g/dL Hematocrit 33.2 % Mean Corpuscular Volume 104.1 fL Mean Corpuscular Hemoglobin 34.5 pg Mean Corpuscular Hemoglobin Concent 33.1 g/dl RDW Standard Deviation 51.6 fL RDW Coefficient of Variation 13.5 % Platelet Count 210 K/uL Mean Platelet Volume 10.3 fL Sodium Level 141 mmol/L Potassium Level 4.5 mmol/L Chloride Level 111 mmol/L Carbon Dioxide Level 24 mmol/L Anion Gap 6.0 mmol/L Blood Urea Nitrogen 29 mg/dl Creatinine 1.18 mg/dl Est Creatinine Clear Calc Drug Dose 52.4 ml/min Estimated GFR () 67.6 Estimated GFR (Non- 58.3 BUN/Creatinine Ratio 24.5 Random Glucose 138 mg/dl Calcium Level 8.6 mg/dl Procalcitonin 1.26 ng/ml
[2017-11-09] MEDS: CALCIUM 600MG + VIT D 400 IU TAB PO SCH (21:00)
[2017-11-09] MEDS: ASPIRIN 81 MG ECTAB PO SCH (21:08)
[2017-11-09] MEDS: SIMVASTATIN 40 MG TAB PO SCH (21:08)
[2017-11-09] MEDS: LATANOPROST 0.005% OP SOLN 2.5 ML BTL OPB SCH (21:09)
[2017-11-10] VITALS (8 sets, daily range): BP systolic 135–137; BP diastolic 66–74; PULSE 57–74; TEMP 36.3–36.6; O2SAT 92–96
[2017-11-10 06:07] LABS: HEMOGLOBIN 10.9 g/dL (14.0-18.0); MEAN CELL VOLUME 103.9 fL (80-100); MEAN CORPUSCULAR HEMOGLOBIN 35.4 pg (25-34); MEAN CORPUSCULAR HGB CONC 34.1 g/dl (32-36); MEAN PLATELET VOLUME 10.1 fL (7.4-10.4); PLATELET COUNT 195 K/uL (130-400); RED CELL DISTRIBUTION WIDTH CV 13.9 % (11.5-14.5); RED CELL DISTRIBUTION WIDTH SD 52.2 fL (36.4-46.3); WHITE BLOOD COUNT 14.86 K/uL (4.8-10.8)
[2017-11-10] MEDS: LEVOTHYROXINE 75 MCG TAB PO SCH (06:09)
[2017-11-10 06:49] LABS: CALCIUM 8.7 mg/dl (8.5-10.1); CREATININE 1.35 mg/dl (0.60-1.40); POTASSIUM 4.6 mmol/L (3.5-5.1)
[2017-11-10] MEDS: ALBUT/IPRATROP 3MG/0.5MG NEB 3 ML VIAL INH SCH ×4 (06:58→19:01)
[2017-11-10] MEDS: CYANOCOBALAMIN 500 MCG TAB (VIT B-12) PO SCH (08:19)
[2017-11-10] MEDS: RANITIDINE HCL 150 MG TAB PO SCH ×2 (08:19→20:36)
[2017-11-10] MEDS: GLUCOSAMINE SULFATE 500 MG CAP PO SCH ×2 (08:20→20:35)
[2017-11-10] MEDS: PYRIDOXINE HCL 50 MG TAB PO SCH (08:21)
[2017-11-10] MEDS: HEPARIN SOD 5000 UNIT/0.5 ML CARP SQ SCH ×2 (08:26→20:39)
[2017-11-10] MEDS ORDERED: METHYLPREDNISOLONE IV 40 MG in SYRINGE 0 ML IV SCH (09:00)
[2017-11-10] MEDS ORDERED: VANCOMYCIN 1GM/270ML NSS IV STA (10:42)
[2017-11-10] MEDS ORDERED: VANCOMYCIN CONSULT ACTIVE PRN (11:15)
--- NOTE | 2017-11-10 11:17 | Pharmacy Progress Note ---
Pharmacy Abx Initial Consult Date of Service Nov 10, 2017. Pharmacy Dosing Scope Date of Consult: 11/10/17 Consultation requested by: Dr. Noriega Pharmacy is consulted to initiate vancomycin IV dosing therapy, order appropriate labs and adjust drug dose/frequency. Subjective The patient is a 77 year old male admitted on Nov 07, 2017 at 17:05. Objective Height (Feet): 5 Height (Inches): 10.00 Weight (Kilograms): 74.500 Vital Signs (Past 12Hrs) Vital Signs Past 12 Hours Date Time Temp Pulse Resp B/P (MAP) Pulse Ox O2 Delivery O2 Flow Rate FiO2 11/10/17 08:00 Room Air 11/10/17 07:41 36.6 66 18 135/66 (89) 92 Room Air 11/10/17 07:00 57 16 94 Room Air 11/10/17 00:00 96 Room Air Lab Results (24Hrs) Laboratory Tests (24 Hours) Test 11/10/17 05:42 White Blood Count 14.86 K/uL (4.8-10.8) H Micro Results Date/Time Source Procedure Growth Status 11/07/17 13:56 Blood Blood Culture - Preliminary NO GROWTH TO DATE. Resulted 11/07/17 13:25 Blood Blood Culture - Preliminary NO GROWTH TO DATE. Resulted 11/08/17 21:05 Nasal MRSA DNA Surveillance Screen - Final Specimen Negative for MRSA by DNA Probe Complete Risk Factors for Resistance * Immunocompromised (chronic steroid therapy) * Antimicrobial use within the last 90 days (vancomycin and levaquin during this hospitalization) Assessment & Plan Assessment 77 year old male with a PMH of Radha's disease who presented with possible pneumonia. Of note, these antibiotics were stopped on 11/09/17 but restarted today. Plan vancomycin for treatment of possible pneumonia Vancomycin IV * Loading dose: 1750 mg (23.5 mg/kg) * Maintenance dose: 1250 mg IV (16.8 mg/kg) every 18 hours (population pharmacokinetics suggest a half-life of 15 hours with an elimination constant of 0.046 hr-1) * Goal trough level for pulmonary source : 15 to 20 mcg/mL * Trough ordered for 11/13/17 prior to 1200 dose Pharmacy will continue to follow and will adjust dose/frequency as necessary. Thank you.
--- NOTE | 2017-11-10 11:32 | Hospitalist Progress Note ---
Hospitalist Progress Note Date of Service Nov 10, 2017. (Rubina Walker ., BRINAC) Subjective Pt evaluation today including: conversation w/ patient, physical exam, lab review, review of studies, review of inpatient medication list Voiding: no voiding problems Patient sitting in bedside chair. Feeling well. Continue to have productive cough- yellow sputum production. Eating and drinking OK. SOB has resolved. Patient denies any fever, chills, sweats, lightheadedness, dizziness, vision changes, CP, palpitations, edema, SOB, wheezing, abdominal pain, nausea, vomiting, diarrhea, urinary symptoms, melena, numbness/tingling, weakness, muscle/joint pain, anxiety/depression, active bleeding, or new skin discoloration/changes. (Rubina Walker ., BRINAC) Medications Current Inpatient Medications Medications (Trade) Dose Ordered Sig/Luis Miguel Route Start Time Stop Time Status Last Admin Dose Admin Ioversol (Optiray 320) 100 ml UD PRN IV 11/07/17 14:45 11/11/17 14:44 Heparin Sodium (Porcine) (Heparin Sq 5000 Unit/0.5ml) 5,000 unit Q12 SQ 11/07/17 21:00 12/07/17 20:59 11/10/17 08:26 5,000 UNIT Acetaminophen (Tylenol Tab) 650 mg Q4H PRN PO 11/07/17 16:45 12/07/17 16:44 Aspirin (Ecotrin Tab) 81 mg QPM PO 11/07/17 21:00 12/07/17 20:59 11/09/17 21:08 81 MG Azathioprine (Imuran Tab) 50 mg BID PO 11/07/17 21:00 12/07/17 20:59 Future Hold 11/07/17 20:13 50 MG Cyanocobalamin (Vitamin B-12 Tab) 500 mcg DAILY PO 11/08/17 09:00 12/08/17 08:59 11/10/17 08:19 500 MCG Folic Acid (Folvite Tab) 1 mg DAILY PO 11/08/17 09:00 12/08/17 08:59 11/10/17 08:20 1 MG Latanoprost (Xalatan Oph Soln) 1 drops HS OPB 11/07/17 21:00 12/07/17 20:59 11/09/17 21:09 1 DROPS Levothyroxine Sodium (Synthroid Tab) 75 mcg DAILYBB PO 11/08/17 06:00 12/08/17 06:59 11/10/17 06:09 75 MCG Pyridoxine HCl (Vitamin B-6 Tab) 100 mg DAILY PO 11/08/17 09:00 12/08/17 08:59 11/10/17 08:21 100 MG Ranitidine HCl (zANTac TAB) 150 mg BID PO 11/07/17 21:00 12/07/17 20:59 11/10/17 08:19 150 MG Simvastatin (Zocor Tab) 40 mg HS PO 11/07/17 21:00 12/07/17 20:59 11/09/17 21:08 40 MG Calcium/Vitamin D (Caltrate Plus Tab) 1 tab QPM PO 11/07/17 21:00 12/07/17 20:59 11/08/17 20:57 1 TAB Glucosamine Sulfate (Glucosamine Cap) 500 mg BID PO 11/07/17 21:00 12/07/17 20:59 11/10/17 08:20 500 MG Albuterol/ Ipratropium (Duoneb) 3 ml QIDR INH 11/07/17 20:00 12/07/17 19:59 11/10/17 06:58 3 ML Albuterol/ Ipratropium (Duoneb) 3 ml Q2H PRN INH 11/07/17 17:30 12/07/17 17:29 Prednisone (PredniSONE TAB) 40 mg DAILY PO 11/10/17 08:00 12/10/17 08:59 11/10/17 08:22 40 MG Levofloxacin 500 mg/Prmx 100 ml @ 100 mls/hr Q24H IV 11/10/17 11:00 11/17/17 10:59 Lactobacillus Acidophilus (Floranex Tab) 4 tab TIDM PO 11/10/17 12:00 12/10/17 11:59 Miscellaneous Information (Consult) 1 ea UD PRN N/A 11/10/17 11:15 12/10/17 11:14 Vancomycin HCl 1750 mg/Sodium Chloride 535 ml @ 200 mls/hr NOW ONCE IV 11/10/17 12:00 11/10/17 14:40 Vancomycin HCl 1250 mg/Sodium Chloride 275 ml @ 125 mls/hr Q18H IV 11/11/17 06:00 11/17/17 23:59 (Rubina Walker PA-C) Objective Vital Signs Date Time Temp Pulse Resp B/P (MAP) Pulse Ox O2 Delivery O2 Flow Rate FiO2 11/10/17 08:00 Room Air 11/10/17 07:41 36.6 66 18 135/66 (89) 92 Room Air 11/10/17 07:00 57 16 94 Room Air 11/10/17 00:00 96 Room Air 11/09/17 23:00 36.4 68 18 134/73 (93) 92 Room Air 11/09/17 19:08 67 16 96 Room Air 11/09/17 16:00 96 Room Air 11/09/17 15:21 63 16 96 Room Air 11/09/17 13:53 Room Air 11/09/17 13:51 36.3 71 22 132/64 (86) 94 Room Air 11/09/17 13:39 36.8 79 18 92 2.0 11/09/17 12:00 92 Room Air 2.0 11/09/17 12:00 79 11/09/17 11:25 69 18 96 Room Air (Rubina Walker PA-C) Physical Exam General Appearance: no apparent distress Eyes: normal inspection, PERRL ENT: hearing grossly normal Neck: supple Respiratory/Chest: no respiratory distress, no accessory muscle use, + crackles (crackles L base ) Cardiovascular: regular rate, rhythm Abdomen: normal bowel sounds, non tender, soft Extremities: no pedal edema, no calf tenderness Neurologic/Psychiatric: alert, normal mood/affect, oriented x 3 Skin: normal color, warm/dry, no rash (Rubina Walker, BRINAC) Laboratory Results Last 24 Hours Test 11/10/17 05:42 White Blood Count 14.86 K/uL Red Blood Count 3.08 M/uL Hemoglobin 10.9 g/dL Hematocrit 32.0 % Mean Corpuscular Volume 103.9 fL Mean Corpuscular Hemoglobin 35.4 pg Mean Corpuscular Hemoglobin Concent 34.1 g/dl RDW Standard Deviation 52.2 fL RDW Coefficient of Variation 13.9 % Platelet Count 195 K/uL Mean Platelet Volume 10.1 fL Sodium Level 142 mmol/L Potassium Level 4.6 mmol/L Chloride Level 111 mmol/L Carbon Dioxide Level 25 mmol/L Anion Gap 6.0 mmol/L Blood Urea Nitrogen 32 mg/dl Creatinine 1.35 mg/dl Est Creatinine Clear Calc Drug Dose 45.8 ml/min Estimated GFR () 57.5 Estimated GFR (Non- 49.6 BUN/Creatinine Ratio 24.0 Random Glucose 133 mg/dl Calcium Level 8.7 mg/dl (Rubina Walker, BRINAC) Assessment and Plan This pt is a 77 y/o M 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 Recently treated for cellulitis of the left leg with broad spectrum antibiotics. Presenting with cough, fever, hypoxia - no clear acute infiltrates on CXR, but CTA Chest confirms bilateral pulm infiltrates. A temp of 101.3 was confirmed at home - he is presently on treatment with prednisone and Imuran Acute hypoxemic respiratory failure, ?secondary to suspected bilateral PNA/ Radha's granulomatosis: - Chest CT- negative for PE - O2 protocol- currently on RA - Flu swab negative; BCx NGTD; sputum culture pending; Legionella antigen pending; rapid strep pending - Procalcitonin 3.84 --> 1.26 - IV Levaquin + Vancomycin - DuoNebs QID and PRN for SOB/wheezing - Prednisone 40 mg daily and taper back to maintenance dose of 10 mg daily - Pulmonary consulted, appreciate recommendations - Rheumatology consulted, appreciate recommendations -- Keep outpatient f/u -- Resume Azathioprine at discharge Pulmonary nodules seen on CT chest: f/u with Pulmonary DANIELE on CKD stage III- RESOLVED, h/o hematuria: - Treated w/ IVF - Continue outpatient f/u for hematuria- may need referral to urology - Avoid nephrotoxic agents and renally dose medications as appropriate HLD: Continue Zocor Hypothyroidism: Continue Synthroid GERD: Continue Zantac DVT prophylaxis: Heparin SQ BID Code status: LEVEL I, FULL Dispo: Discharge to home once medically stable - PCP, pulmonary, and rheumatology appointment setup (Rubina Walker, [facility]) I personally interviewed and examined the patient. I agree with history of present illness and physical exam mentioned above, I also performed my own history taking and examination. Past medical history and review of system has been obtained by myself I reviewed all pertinent labs and studies Reviewed current medications I discussed and formulated of the assessment and plan mentioned above. Please refer to the Summary mentioned below. 77 year old man with history of granulomatosis presented with productive cough and shortness of breath, his temperature at home was 101.3 CT angiogram showed bilateral peripheral density He was started on levofloxacin/Vanco and white blood cell count improved significantly Pro calcitonin was noted to be elevated on admission slowly improved with antibiotics Differential diagnosis can be bacterial infection in the setting of immune compromised status versus magnetic granulomatosis flare, it can be very challenging to differentiate between both. But since he improved with 3 days of antibiotics, no sputum culture was obtained prior to today, it would be the safest approach to continue antibiotics for at least 5-7 days. Ordered sputum cultures today, collected the samples by myself. 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 Sanford who agreed to continue Abx although he is confident that it is most likely Radha's flare. General Appearance: not in acute distress Eyes: normal Sclerae, extraocular muscle intact ENT: hearing grossly normal Neck: supple Respiratory/Chest: normal air entry bilateral ,no respiratory distress, no accessory muscle use Cardiovascular: regular rate, rhythm, no murmur Abdomen: non tender, soft, no masses Extremities: no edema Neurologic/Psychiatric: Awake alert oriented times place and person moves all extremities sensation intact cranial nerves II-12 appear to be intact Skin: normal color, warm/dry, no rash Armin Bledsoe MD, [facility] hospitalist group (Armin Franklin MD)
[2017-11-10] MEDS: LACTOBACILLUS ACIDOPHILUS (FLORANEX) TAB PO SCH ×2 (11:50→17:25)
[2017-11-10] MEDS: LEVOFLOXACIN / D5W 500 MG in PREMIXED IN D5W 100 ML IV SCH (11:51)
[2017-11-10] MEDS ORDERED: VANCOMYCIN INJ 1,750 MG in SODIUM CHLORIDE 0.9% 500ML 500 ML IV ONE (12:00)
[2017-11-10] MEDS ORDERED: VANCOMYCIN TROUGH SCH (15:30)
[2017-11-10] MEDS: CALCIUM 600MG + VIT D 400 IU TAB PO SCH (20:35)
[2017-11-10] MEDS: ASPIRIN 81 MG ECTAB PO SCH (20:35)
[2017-11-10] MEDS: SIMVASTATIN 40 MG TAB PO SCH (20:35)
[2017-11-10] MEDS: LATANOPROST 0.005% OP SOLN 2.5 ML BTL OPB SCH (20:36)
[2017-11-11] VITALS: O2SAT 96
[2017-11-11] MEDS: LEVOTHYROXINE 75 MCG TAB PO SCH (05:43)
[2017-11-11 05:51] LABS: HEMOGLOBIN 10.9 g/dL (14.0-18.0); MEAN CELL VOLUME 104.2 fL (80-100); MEAN CORPUSCULAR HEMOGLOBIN 35.5 pg (25-34); MEAN CORPUSCULAR HGB CONC 34.1 g/dl (32-36); NUCLEATED RED BLOOD CELL ABS 0.03 K/uL (0-0); PLATELET COUNT 210 K/uL (130-400); RED CELL DISTRIBUTION WIDTH SD 53.5 fL (36.4-46.3); WHITE BLOOD COUNT 11.77 K/uL (4.8-10.8)
[2017-11-11] MEDS ORDERED: VANCOMYCIN INJ 1,250 MG in SODIUM CHLORIDE 0.9% 250ML 250 ML IV SCH (06:00)
[2017-11-11 06:24] LABS: CALCIUM 8.6 mg/dl (8.5-10.1); CREATININE 1.32 mg/dl (0.60-1.40)
[2017-11-11 07:11] VITALS: PULSE 68; O2SAT 96
[2017-11-11] MEDS: ALBUT/IPRATROP 3MG/0.5MG NEB 3 ML VIAL INH SCH (07:11)
[2017-11-11 08:06] VITALS: BP 119/69; PULSE 71; TEMP 36.4; O2SAT 91
[2017-11-11] MEDS: LACTOBACILLUS ACIDOPHILUS (FLORANEX) TAB PO SCH ×2 (08:23→11:30)
[2017-11-11] MEDS: RANITIDINE HCL 150 MG TAB PO SCH (08:23)
[2017-11-11] MEDS: PYRIDOXINE HCL 50 MG TAB PO SCH (08:23)
[2017-11-11] MEDS: CYANOCOBALAMIN 500 MCG TAB (VIT B-12) PO SCH (08:23)
[2017-11-11] MEDS: GLUCOSAMINE SULFATE 500 MG CAP PO SCH (08:24)
[2017-11-11] MEDS: HEPARIN SOD 5000 UNIT/0.5 ML CARP SQ SCH (08:29)
[2017-11-11] MEDS: LEVOFLOXACIN / D5W 500 MG in PREMIXED IN D5W 100 ML IV SCH (11:30)
[2017-11-11] MEDS ORDERED: IPRATROPIUM BROMIDE/ALBUTEROL respimat INH INH SCH ×2 (12:00)
[2017-11-11] MEDS ORDERED: PRED10TA PO (12:34)
[2017-11-11] MEDS ORDERED: DXY100 PO (12:34)
[2017-11-11] MEDS ORDERED: LEVO1TAB35 PO (12:34)
--- NOTE | 2017-11-11 12:38 | Discharge Instructions ---
Discharge Instructions Date of Service Nov 11, 2017. Admission Reason for Admission: Pneumonia, Radha's Disease, Pulmonary Discharge Discharge Diagnosis / Problem: Pneumonia, Radha's disease Discharge Goals Goal(s): Improve disease control, Diagnostic testing, Therapeutic intervention Activity Recommendations Activity Limitations: resume your previous activity Lifting Limitations: none Exercise/Sports Limitations: gradually increase as tolerated Shower/Bathe: no limitations Driving or Machine Use: no limitations . Instructions / Follow-Up Instructions / Follow-Up Please finish out your course of antibiotics as prescribed. Stay on prednisone 40mg daily until seen by Dr. Garcia to determine the steroid taper this week. Please make a new patient hospital follow up appointment with the [facility] , Dr. Fajardo, for within 2-3 weeks. Please also follow up with your PCP within 1-2 weeks. Current Hospital Diet Patient's current hospital diet: Regular Diet Discharge Diet Recommended Diet: Regular Diet Procedures Procedures Performed: Chest xrays CT Chest Pending Studies Studies pending at discharge: yes List of pending studies: Final throat culture Legionella urine antigen Final sputum culture Medical Emergencies . Who to Call and When: Medical Emergencies: If at any time you feel your situation is an emergency, please call 911 immediately. . Non-Emergent Contact Non-Emergency issues call your: Primary Care Provider, Specialist ( Complaint Analyst) Call Non-Emergent contact if: you have a fever, temperature is above 100.5, you have any medication questions . . "Provider Documentation" section prepared by Ness Mena. . Float Remover Recommendations Float Remover Recommendations: Follow up with Dr. Fajardo in pulmonary 11/23/17 at 2:45pm VTE Core Measure Inpt VTE Proph given/why not?: Unfractionated heparin SQ
[2017-11-11 13:55] VITALS: BP 119/69; PULSE 71; TEMP 36.4; O2SAT 91
[2017-11-13] MEDS ORDERED: VANCOMYCIN TROUGH ONE (11:30)
== END 2017-11-11 14:39 | disposition home or self-care (01) | DRG 542 ==
LOC: C.EDB 12:40 → C.2E 17:05 → CANRESERV 18:07 → ENRESERV 18:07 → EDBEDREQ 11-09 13:39 → C.4E 11-09 13:45
PROVIDERS: ADMIT Internal Medicine; ATTEND Family Medicine
DX: M31.30 Wegener's granulomatosis without renal involvement (principal); J18.9 Pneumonia, unspecified organism; J96.01 Acute respiratory failure with hypoxia; R91.8 Other nonspecific abnormal finding of lung field; K21.9 Gastro-esophageal reflux disease without esophagitis; N18.3 Chronic kidney disease, stage 3 (moderate); E89.0 Postprocedural hypothyroidism; Z51.81 Encounter for therapeutic drug level monitoring; Z79.899 Other long term (current) drug therapy; Z79.52 Long term (current) use of systemic steroids; Z79.82 Long term (current) use of aspirin; Z87.891 Personal history of nicotine dependence; Z80.1 Family history of malignant neoplasm of trachea, bronchus and lung; Z81.1 Family history of alcohol abuse and dependence; Z82.69 Family history of other diseases of the musculoskeletal system and connective tissue

== ENCOUNTER → 2017-11-16 | Outpatient (CLI) | payer BC ==
[~2017-11-16] MED LIST changes: -CEPH500C PO; +DXY100 PO; +LEVO1TAB35 PO
[2017-11-16 16:38] LABS: HEMOGLOBIN 14.5 g/dL (14.0-18.0); MEAN CELL VOLUME 104.1 fL (80-100); MEAN CORPUSCULAR HEMOGLOBIN 35.1 pg (25-34); MEAN CORPUSCULAR HGB CONC 33.7 g/dl (32-36); MEAN PLATELET VOLUME 10.7 fL (7.4-10.4); PLATELET COUNT 247 K/uL (130-400); RED CELL DISTRIBUTION WIDTH CV 13.7 % (11.5-14.5); RED CELL DISTRIBUTION WIDTH SD 52.7 fL (36.4-46.3); WHITE BLOOD COUNT 8.92 K/uL (4.8-10.8)
[2017-11-16 17:07] LABS: BASO % 0.1 %; BASO ABS # 0.01 K/uL (0-0.2); LYMPH % 2.7 %; LYMPH ABS # 0.24 K/uL (1.2-3.4); MONO % 1.7 %; MONO ABS # 0.15 K/uL (0.11-0.59); NEUT % 94.4 %; NEUT ABS # 8.42 K/uL (1.4-6.5)
[2017-11-16 17:08] LABS: ALBUMIN 2.9 gm/dl (3.4-5.0); ALT/SGPT 94 U/L (12-78); CREATININE 1.35 mg/dl (0.60-1.40)
[2017-11-16 17:11] LABS: ALKALINE PHOSPHATASE 61 U/L (45-117); AST/SGOT 46 U/L (15-37); TOTAL PROTEIN 6.4 gm/dl (6.4-8.2)
== END | disposition home or self-care (01) ==
LOC: C.LAB1850 15:18
PROVIDERS: ATTEND Internal Medicine Rheumatology
DX: R31.9 Hematuria, unspecified (principal)

== ENCOUNTER → 2017-11-18 | Outpatient (CLI) | payer BC | END | disposition home or self-care (01) | LOC: C.LAB 14:18 | PROVIDERS: ATTEND Internal Medicine Rheumatology | DX: R31.9 Hematuria, unspecified (principal) ==

== ENCOUNTER 2017-12-06 09:36 | Day surgery (SDC) | payer BC ==
--- NOTE | 2017-12-05 19:26 | History and Physical ---
History & Physical Date of Service Dec 05, 2017. History & Physical 77-year-old gentleman here for evaluation of abnormal CT with a history granulomatosis with polyangiitis and diffuse fleeting infiltrative process but on chronic immunosuppression. He presents today for bronchoscopy with BAL for evaluation possible secondary infection. Patient is doing well today and is almost recovered from his recent flare requiring hospital admission to the [facility]. At that time his prednisone dosing was increased to 20 mg b.i.d.. Patient notes he is almost back to his baseline. Patient has a complex history of granulomatosis with polyangiitis/Radha's. He notes he was 1st evaluated in 2002 secondary to chronic sinusitis and underwent tympanic surgery followed by mastoidectomy. The pathological evaluation of the mastoid reveals granulomatosis with polyangiitis. At that time was believed he had a limited disease and was treated with methotrexate and prednisone by Dr. irwin at [facility]. The patient did well after initiation of treatment and 1 point time per the patient was able to be weaned off medication. But in 2005 2006 he once again had a notable flare but this time involved his lungs and was initiated on Cytoxan and high-dose steroids. He was stable eyes but in 2007 to 2008 he was visiting [place] was diagnosed with pneumonia which possibly could have been a secondary flare of Franki's at that time. Per the patient he was in remission between 2008 and 2013 but once again had a flare and was re-initiated on Cytoxan and then moved to azathioprine with prednisone for maintenance therapy. Patient is a complication with leg ulcers as well as lower extremity edema. Patient notes he has had a indolent progression of his disease since February of 2017 with associated congestion of the upper airway, chronic cough and shortness of breath with associated fever chills and fatigue. I should note it appears that the patient has had more difficulty with his Franki's and possible flares ever since 2013 when he was also diagnosed with Lyme disease which seemed to a been a trigger. 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 The patient on I reviewed multiple different CT images. These range from images all the way back to 11/14/2015 and his recent is 11/07/2017. We also reviewed his pulmonary function studies from 01/18/2012. Lung carcinoma risk factors 1. Tobacco: Started age 15 but stopped in 1965--smoking only 0.5-1.0 packs per day 2. Asbestos: No known exposure 3. 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 Radon: Unknown exposure but the patient did grow up in the local area 4. Secondhand exposure: Did have notable 2nd had exposure in the [place] and from his father but this was greater than 40 years ago Active Problems 1. Anemia 2. Cellulitis 3. Chronic use of steroids 4. Cough 5. Edema, peripheral 6. Gastroesophageal reflux disease 7. Hematuria 8. Hiatal hernia 9. Hyperlipidemia 10. Hypothyroidism, postablative 11. Hypoxia 12. 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 Left leg swelling 14. Leg wound, left 15. Long-term use of immunosuppressant medication 16. Lower back pain 17. Macrocytic anemia (D53.9) 18. 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 Wegeners granulomatosis Surgical History 1. History of Complete Colonoscopy 2. History of Inguinal Hernia Repair 3. History of Mastoidectomy, Left Ear Family History 1. Family history of Lung Cancer 2. Family history of Systemic Lupus Erythematosus 3. Family history of Father At Age 70 4. Family history of Mother At Age 90 Social History Former smoker (Z87.891) Marital History - Currently Never a smoker Retired From Work Current Meds 1. Cephalexin 500 MG Oral Capsule; Take 1 capsule twice daily; 2. RaNITidine HCl - 150 MG Oral Tablet; TAKE 1 TABLET TWICE DAILY Requested for 3. B-12 500 MCG Oral Tablet; TAKE 1 TABLET DAILY 4. Calcium + D TABS; TAKE 1 TABLET DAILY. (500 mg calcium); 5. Folic Acid 1 MG Oral Tablet; TAKE 1 TABLET DAILY Requested for: [id number] 6. Vitamin B-6 25 MG Oral Tablet; TAKE 1 TABLET DAILY DIRECTED 7. Levothyroxine Sodium 75 MCG Oral Tablet; TAKE 1 TABLET DAILY 8. PredniSONE 20 MG Oral Tablet; TAKE 2 TABLETS DAILY 9. Aspirin 81 MG TABS; TAKE 1 TABLET DAILY 10. Glucosamine TABS; Take 1 tablet twice daily Allergies 1. No Known Drug Allergies Immunizations Influenza --- Series1: 27-Jul-2011; Series2: 31-Aug-2012; Series3: 11-Jul-2013; Series4: 02-Aug-2014; Series5: 01-Aug-2015; Series6: 20-Jul-2016; Series7: 04-Jul-2017 PCV --- Series1: 12-Dec-2014 PPSV --- Series1: 01-Aug-2003 PPD --- Series1: 30-Jul-2003 Tdap --- Series1: 16-Apr-2014 Zoster --- Series1: 10-Jul-2012 Vital Signs Height: 5 ft 9.5 in Weight: 153 lb 6 oz BMI Calculated: 22.32 BSA Calculated: 1.85 Temperature: 98.4 F, Oral Respiration: 16 O2 Saturation: 97 Heart Rate: 69 Blood Pressure: 138 / 84, RUE, Sitting Constitutional General appearance: Abnormal. Thin male but in no apparent distress. Eyes Conjunctiva and lids: No swelling, erythema, or discharge. Pupils and irises: Equal, round and reactive to light. Ears, Nose, Mouth, and Throat External inspection of ears and nose: Normal. Otoscopic examination: Tympanic membrance translucent with normal light reflex. Canals patent without erythema. Oropharynx: Normal with no erythema, edema, exudate or lesions. Pulmonary Respiratory effort: No increased work of breathing or signs of respiratory distress. Auscultation of lungs: Clear to auscultation. Cardiovascular Palpation of heart: Normal PMI, no thrills. Auscultation of heart: Normal rate and rhythm, normal S1 and S2, without murmurs. Examination of extremities for edema and/or varicosities: Abnormal. 1+ lower extremity pitting edema with healing ulcer. Abdomen Abdomen: Non-tender, no masses. Liver and spleen: No hepatomegaly or splenomegaly. Lymphatic Palpation of lymph nodes in neck: No lymphadenopathy. Musculoskeletal Gait and station: Normal. Digits and nails: Normal without clubbing or cyanosis. Inspection/palpation of joints, bones, and muscles: Normal. Skin Skin and subcutaneous tissue: Normal without rashes or lesions. Neurologic Cranial nerves: Cranial nerves 2-12 intact. Reflexes: 2+ and symmetric. Sensation: Abnormal. Mildly decreased sensation left lower extremity the patient notes this is chronic. Psychiatric Orientation to person, place and time: Normal. Mood and affect: Normal.
[~2017-12-06] VITALS: Ht 177.8 cm; Wt 68.3 kg
[~2017-12-06 09:36] MED LIST changes: -LEVO1TAB35 PO; +RANI150T85 PO; -ZNTT/150 PO
[2017-12-06] MEDS ORDERED: ASPI81TA28 PO (10:00)
[2017-12-06] MEDS ORDERED: PRED20TA PO (10:05)
[2017-12-06] MEDS ORDERED: SULFPOW92 PO (10:08)
[2017-12-06 10:09] VITALS: BP 196/99; PULSE 49; TEMP 36.4; O2SAT 97; Ht 177.8 cm; Wt 68.3 kg
--- NOTE | 2017-12-06 11:24 | History & Physical Bridge Note ---
H&P Re-Evaluation Bridge Note: I have examined the patient, reviewed the History & Physical and in the interval since the performance of the History & Physical I have noted the following changes of clinical significance: No changes noted
--- NOTE | 2017-12-06 11:26 | Pre Sedation Assessment ---
Pre Sedation Assessment General Date of Sedation: Dec 06, 2017. Vital Signs Past 12 Hours Date Time Temp Pulse Resp B/P (MAP) Pulse Ox O2 Delivery O2 Flow Rate FiO2 12/06/17 10:09 36.4 49 20 196/99 (131) 97 Room Air Review Cardiovascular: regular rate, rhythm, no edema, no gallop, no JVD, no murmur, normal peripheral pulses Lungs: chest non-tender, lungs clear, normal breath sounds, no respiratory distress, no accessory muscle use Pre-Sedation Airway Assessment Smoking Status: Former Smoker Hx of Sleep Apnea: No Hx of difficult intubation: No Short Thick Neck: No Thyro-mental Distance: > 3 Finger Breadths Oral Cavity: WNL Mallampati Classification: Class III ASA Classification: Class III NPO Status Date of Last Intake of Fluids: Dec 06, 2017 Time of Last Intake of Fluids: 0000 Date of Last Intake of Solids: Dec 06, 2017 Time of Last Intake of Solids: 0000 Procedure Planning Contraindications for Sedation: None Current Medications Reviewed: Yes Notes The planned sedation has been discussed with the patient. Informed Consent was obtained. I have identified the patient, determined the appropriateness of sedation and have assessed the patient immediately prior to the procedure. All medicine(s) and interventions are by my order.
[2017-12-06] MEDS ORDERED: LIDOCAINE 4% INH SOLN 4 ML BTL TOP ONE (11:33)
[2017-12-06] MEDS ORDERED: FENTANYL CITRATE INJ 50 MCG/1 ML 2 ML VIAL IV ONE (11:46)
[2017-12-06] MEDS ORDERED: MIDAZOLAM HCL 5 MG/ML 1 ML VIAL IV ONE (11:49)
[2017-12-06] MEDS ORDERED: LIDOCAINE VISCOUS 2% 100ML TOP ONE (11:50)
[2017-12-06] MEDS ORDERED: LIDOCAINE HCL 2% LOCAL 50ML VIAL INSTIL ONE (11:53)
--- NOTE | 2017-12-06 11:58 | Post Sedation Assessment ---
Post Sedation Assessment General Date of Sedation Dec 06, 2017. Vital Signs: Vital Signs Past 12 Hours Date Time Temp Pulse Resp B/P (MAP) Pulse Ox O2 Delivery O2 Flow Rate FiO2 12/06/17 11:55 54 16 148/77 99 Mask 8 12/06/17 11:50 57 20 150/78 99 Mask 8 12/06/17 11:45 51 20 141/86 100 Mask 8 12/06/17 11:40 53 20 163/82 100 Mask 8 12/06/17 10:09 36.4 49 20 196/99 (131) 97 Room Air Post Procedure Recovery Score Activity: (2) Moves 4 extremities * Respiration: (2) Deep breath/cough Circulation: (2) +/-20% PreAnes Value Consciousness: (1) Arouseable (by name) Oxygen Saturation: (2) > 92% On Room Air Discharge Sedation Level of Care: Fast Track Phase II Post Sedation Plan On clinical assessment, the patient appears to have tolerated the sedation without complications. Patient is recovering as anticipated. Patient will continue to be monitored by nursing and may be discharged when sedation discharge criteria are met per below protocol. Upon Completions of procedure and additional 15 minutes continue every 5 minute vital signs and the P.A.R. score; then discharge to a Phase I or Fast Track to Phase II per the following guidelines: * Discharge Patient to appropriate Phase II area if PAR is 8 or greater or return to pre- procedure baseline. The post - procedure orders will be as directed. * If PAR score is less than 8 or not return to pre-procedure baseline then patient will follow Phase I monitoring till PAR is reached for Phase II. The Phase I may be done in procedure room or may call to secure a Phase I area. * If naloxone or flumazenil are used for reversal, hold in Phase I for an additional 60 -120 minutes before discharge to Phase II. Please call the Sedation Physician to re-evaluate and complete post-note for discharge to Phase II area. Do NOT discharge from procedure sedation or Phase 1 until post- sedation evaluation note is complete by procedure /sedation MD Sedation Discharge Instructions to be given to the patient at discharge to home.
--- NOTE | 2017-12-06 12:01 | Bronchoscopy Procedure Note ---
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 Post-procedural diagnosis: [place] Felipe's granulomatosis with pulmonary nodules Start time: 1148 End time: 1154 Total time: 6minutes Analgesia: 2% liquid lidocaine: Via nebulizer 4% gel lidocaine: Via right naris 2% liquid lidocaine: Via bronchoscopy Sedation: Versed IV: 3mg Fentanyl IV: 50 g Procedure: The Olympus video bronchoscope was used for this procedure and passed down through the right naris Right Naris: Notable erythema at the takeoff of the right naris Posterior naris/posterior oropharynx: Anatomically within normal limits Glottis: Anatomically within normal limits, mild erythema appreciated Vocal cords: Proper abduction and abduction, anatomically within normal limits Subglottis/trachea/Stephanie: Anatomically within normal limits Right bronchial tree: Right mainstem bronchus: Anatomically within normal limits Right upper lobe: Anatomically within normal limits Bronchus intermedius: Anatomically within normal limits Right middle lobe: Anatomically within normal limits Right lower lobe: There is signs of tracheal weakness and inflammation appreciated in the posterior subsegment of the right lower lobe, mucous plugs Findings: Signs of tracheal weakness had a small segment of the posterior subsegment of the right lower lobe Left bronchial tree: Left mainstem bronchus: Anatomically within normal limits Left upper lobe: Anatomically within normal limits Lingula: Anatomically within normal limits, mucous plugs Left lower lobe: Anatomically within normal limits Findings: No significant findings noted Bronchial alveolar lavage: Right lower lobe EBL: None Complications: None Follow-up: [facility]SU
--- NOTE | 2017-12-06 12:08 | Discharge Instructions ---
Discharge Instructions Date of Service Dec 06, 2017. 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 Current Hospital Diet Patient's current hospital diet: Discharge Diet Recommended Diet: Regular Diet Procedures Procedures Performed: Bronchoscopy, bronchial lavage of the right lower lobe and conscious sedation Pending Studies Studies pending at discharge: no Medical Emergencies . Who to Call and When: Medical Emergencies: If at any time you feel your situation is an emergency, please call 911 immediately. . Non-Emergent Contact Non-Emergency issues call your: Digital Marketer . . "Provider Documentation" section prepared by Vernon Fajardo. . VTE Core Measure Inpt VTE Proph given/why not?: Treatment not indicated
[2017-12-06 12:20] VITALS: BP 135/85; PULSE 53; TEMP 36.5; O2SAT 99
[2017-12-06 12:51] VITALS: BP 132/76; PULSE 49; O2SAT 99
[2017-12-06 13:25] VITALS: BP 141/78; PULSE 54; TEMP 36.5; O2SAT 96
[2017-12-06 14:18] VITALS: BP 166/92; PULSE 55; TEMP 36.4; O2SAT 93
== END 2017-12-06 14:26 | disposition home or self-care (01) ==
LOC: C.ACU 09:36
PROVIDERS: ATTEND Internal Medicine Critical Care Medicine
DX: M31.30 Wegener's granulomatosis without renal involvement (principal); K21.9 Gastro-esophageal reflux disease without esophagitis; E89.0 Postprocedural hypothyroidism; E78.5 Hyperlipidemia, unspecified; N18.2 Chronic kidney disease, stage 2 (mild); D53.9 Nutritional anemia, unspecified; G62.9 Polyneuropathy, unspecified; M02.30 Reiter's disease, unspecified site; Z79.82 Long term (current) use of aspirin; Z79.899 Other long term (current) drug therapy; Z87.891 Personal history of nicotine dependence

== ENCOUNTER → 2017-12-14 | Outpatient (CLI) | payer BC ==
[~2017-12-14] MED LIST changes: -AZAT50TA22 PO; -DXY100 PO; -PRED10TA PO; +PRED20TA PO; +SULFPOW92 PO; -ZCR40 PO
== END | disposition home or self-care (01) ==
LOC: C.LAB1850 13:16
PROVIDERS: ATTEND Internal Medicine Critical Care Medicine
DX: B44.9 Aspergillosis, unspecified (principal)

== ENCOUNTER → 2018-01-10 | Outpatient (CLI) | payer BC | END | disposition home or self-care (01) | LOC: C.LABSPEC 17:17 | PROVIDERS: ATTEND Urology | DX: N18.3 Chronic kidney disease, stage 3 (moderate) (principal) ==

== ENCOUNTER → 2018-01-10 | Outpatient (CLI) | payer BC ==
[2018-01-10 17:59] LABS: ALBUMIN 3.3 gm/dl (3.4-5.0); ALT/SGPT 35 U/L (12-78); AST/SGOT 23 U/L (15-37); BLOOD UREA NITROGEN 27 mg/dl (7-18); CARBON DIOXIDE 27 mmol/L (21-32); CREATININE 1.55 mg/dl (0.60-1.40); GLUCOSE 131 mg/dl (70-99); POTASSIUM 4.2 mmol/L (3.5-5.1); SODIUM 139 mmol/L (136-145)
[2018-01-10 18:04] LABS: ALKALINE PHOSPHATASE 48 U/L (45-117); TOTAL PROTEIN 5.9 gm/dl (6.4-8.2)
== END | disposition home or self-care (01) ==
LOC: C.LAB1850 16:26
PROVIDERS: ATTEND Urology
DX: N18.3 Chronic kidney disease, stage 3 (moderate) (principal)

== ENCOUNTER → 2018-01-15 | Outpatient (CLI) | payer BC ==
[~2018-01-15] MED LIST changes: +GADAVIST IV PRN
--- NOTE | 2018-01-15 17:47 | DIAGNOSTIC IMAGING REPORT ---
MRI OF THE ABDOMEN WITH AND WITHOUT CONTRAST CLINICAL HISTORY: Chronic kidney disease and hematuria. COMPARISON STUDY: CT of the abdomen and pelvis May 25, 2006 and renal ultrasound November 24, 2011. TECHNIQUE: Utilizing a 1.5 Ellie magnet and dedicated coil, multiplanar, multiecho imaging of the abdomen was performed pre and postcontrast administration. Injection of 7 cc of Gadavist IV was uneventful. The MRI of the pelvis will be reported separately. FINDINGS: There is no hydronephrosis or hydroureter. No solid renal lesions are noted. A 1 cm T1 hyperintense left renal lesion represents a proteinaceous/hemorrhagic cyst. There are numerous additional bilateral renal cysts. There are multiple hepatic cysts. Sensitivity for detection of urothelial lesions and urinary calculi is diminished given MR technique but none are identified. There is moderate renal cortical thinning. No abdominal lymphadenopathy or ascites is present. The spleen, adrenal glands and pancreas are normal. There is no biliary or pancreatic ductal dilatation. There is no suspicious marrow replacement. IMPRESSION: 1. No MRI findings to explain hematuria within the abdomen. Decreased sensitivity for detection of urinary calculi and urothelial lesions by MRI but none identified. 2. Moderate bilateral renal cortical thinning. 3. Numerous renal cysts. Electronically signed by: Sajan Cuevas M.D. 01/15/2018 5:45 PM Dictated Date/Time: 01/15/2018 5:34 PM
--- NOTE | 2018-01-15 20:23 | DIAGNOSTIC IMAGING REPORT ---
MRI OF THE PELVIS COMBO CLINICAL HISTORY: Hematuria. Chronic kidney disease. COMPARISON STUDY: Pelvic CT dated 05/25/2006. TECHNIQUE: MRI of the pelvis is performed utilizing various T1 and T2-weighted sequences in the axial and coronal planes. Contrast-enhanced sequences were acquired following the IV administration of 7 cc of Gadavist. The examination is compromised by large body habitus and motion artifact. FINDINGS: The prostate gland is enlarged and heterogeneous, measuring 5.6 cm in transverse diameter. There is median lobe hypertrophy. The bladder wall is thickened and trabeculated suggesting chronic outlet obstruction. The seminal vesicles are normal as imaged. No pelvic sidewall or inguinal lymphadenopathy is identified. No abnormality is identified along the course of the distal ureters. The visualized loops of small bowel and colon are normal in caliber. There is advanced sigmoid diverticulosis without MRI evidence of acute diverticulitis. The iliac vessels are patent. No free fluid is identified in the pelvis. There is a large fat-containing umbilical hernia. The bony pelvis is normal as imaged. No destructive osseous lesion is seen. The regional musculature demonstrates diffuse fatty atrophy and appears symmetric. Findings suggest mild trochanteric bursitis bilaterally. IMPRESSION: 1. Prostatomegaly with evidence of chronic bladder outlet obstruction. 2. Advanced sigmoid diverticulosis without MRI evidence of acute diverticulitis. 3. Large fat-containing umbilical hernia. Dictated: 01/15/2018 5:35 PM Transcribed: 01/15/2018 8:23 PM Pauline Electronically signed by: Alex Becerra M.D. 01/16/2018 7:53 AM Dictated Date/Time: 01/15/2018 5:35 PM
== END | disposition home or self-care (01) ==
LOC: C.MRI 15:30
PROVIDERS: ATTEND Urology
DX: N18.3 Chronic kidney disease, stage 3 (moderate) (principal); R31.9 Hematuria, unspecified; N28.1 Cyst of kidney, acquired; N40.0 Benign prostatic hyperplasia without lower urinary tract symptoms; K57.30 Diverticulosis of large intestine without perforation or abscess without bleeding; K42.9 Umbilical hernia without obstruction or gangrene

== ENCOUNTER → 2018-01-23 | Outpatient (CLI) | payer BC ==
[~2018-01-23] MED LIST changes: +AZAT50TA17 PO; +FLUT1INH INTNAS; -GADAVIST IV PRN; +NYSS/ PO; +PRED10TA PO; +VNTHFA/IN INH
[2018-01-23 16:37] LABS: HEMATOCRIT 38.2 % (42-52); HEMOGLOBIN 12.5 g/dL (14.0-18.0); MEAN CELL VOLUME 107.3 fL (80-100); MEAN CORPUSCULAR HEMOGLOBIN 35.1 pg (25-34); MEAN CORPUSCULAR HGB CONC 32.7 g/dl (32-36); MEAN PLATELET VOLUME 9.7 fL (7.4-10.4); NUCLEATED RED BLOOD CELL ABS 0.06 K/uL (0-0); PLATELET COUNT 111 K/uL (130-400); RED CELL DISTRIBUTION WIDTH CV 16.7 % (11.5-14.5); WHITE BLOOD COUNT 10.05 K/uL (4.8-10.8)
[2018-01-23 16:47] LABS: INR 1.1 (0.9-1.1); PTT PATIENT 23.1 SECONDS (21.0-31.0)
[2018-01-23 17:10] LABS: BLOOD UREA NITROGEN 25 mg/dl (7-18); CALCIUM 8.7 mg/dl (8.5-10.1); CARBON DIOXIDE 30 mmol/L (21-32); CREATININE 1.49 mg/dl (0.60-1.40); GLUCOSE 114 mg/dl (70-99); POTASSIUM 3.9 mmol/L (3.5-5.1); SODIUM 139 mmol/L (136-145)
== END | disposition home or self-care (01) ==
LOC: C.LAB1850 15:14
PROVIDERS: ATTEND Physician Assistant
DX: R93.8 Abnormal findings on diagnostic imaging of other specified body structures (principal)

== ENCOUNTER → 2018-01-31 | Day surgery (SDC) | payer BC ==
--- NOTE | 2018-01-30 17:03 | History and Physical ---
History & Physical Date of Service Jan 30, 2018. History & Physical 77-year-old male here for bronchoscopy with transbronchial biopsies for history of chronic immunosuppression and recent bronchoscopy with Aspergillus grown out on BAL: Prior records reviewed. 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 Patient admitted 11/07/17 - 11/11/2017 with pneumonia vs pulmonary Wegeners flair. He established as outpatient OV 11/23/[address] notable for multiple infiltrative processes particularly and periphery with imaging consistent with granulomatosis with polyangiitis vs. infection vs. carcinoma. CT angiogram 11/07/2017: Negative for PE. He has few scattered by lateral parenchymal infiltrative changes several small reactive mediastinal lymph nodes. Several hepatic cysts-unchanged CT chest 11/14/2015: Multifocal consolidation throughout both lungs most confluent in the left upper lobe. No cavitation. Small left pleural effusion 12/06/2017 patient underwent bronchoscopy notable for signs of tracheal weakness and inflammation in the posterior segment of right lower lobe as well as mucus plugging affecting the right lower lobe and lingula. Cultures with BAL from RLL room where Aspergillus and normal fan. AFB is currently negative -final is pending. Aspergillus antibodies obtained were negative. PFT 12/14/2017: FVC: 2.75/65 %, FEV1: 1.6/50 % (6 % change), FEV1/FVC: 60 %/ 90 %, FEF 25-75 %: 1.02/37 % (28 % change), RV: 2.4/91 %, T.34/76 %, RV/ T %/115 %, DLCO: 60 %, dL/VA: 84 % Last visit patient was prescribed Breo as well as rescue inhaler. He reports he has generally been doing well with this. He is rinsing and spitting after use. He denies any associated symptoms of shortness of breath, dyspnea, cough or wheeze. He is unsure if the Breo is particularly helpful to him but he is tolerating in using this well. He did complete laboratory test as directed last visit. This included Aspergillus antibodies and these were unremarkable. He denies any symptoms of fevers or chills. He continues on prophylactic Bactrim as well as prednisone daily per his medication records. PmHx: 1. Abnormal CT of the chest (R93.8) 2. Anemia (D64.9) 3. Aspergillosis, with pneumonia 4. Cellulitis 5. Chronic kidney disease 6. Chronic use of steroids 7. Cough 8. Edema, peripheral 9. Gastroesophageal reflux disease 10. Hematuria 11. Hiatal hernia 12. Hyperlipidemia 13. Hypothyroidism, postablative 14. Hypoxia 15. Long-term use of immunosuppressant medication 16. Lower back pain 17. Macrocytic anemia 18. 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 History of DVT 21. History of Graves disease 22. Wegeners granulomatosis Surgical History 1. History of Complete Colonoscopy 2. History of Inguinal Hernia Repair 3. History of Mastoidectomy, Left Ear Family History 1. Family history of Lung Cancer 2. Family history of Systemic Lupus Erythematosus 3. Family history of Father At Age 70 4. Family history of Mother At Age 90 Social History Former smoker (Z87.891) Marital History - Currently Never a smoker Retired From Work Current Meds 1. Ventolin HFA 108 (90 Base) MCG/ACT Inhalation Aerosol Solution; INHALE 2 PUFFS EVERY 4 HOURS NEEDED; 2. RaNITidine HCl - 150 MG Oral Tablet; TAKE 1 TABLET TWICE DAILY Requested for: 3. B-12 500 MCG Oral Tablet; TAKE 1 TABLET DAILY 4. Calcium + D TABS; TAKE 1 TABLET DAILY. (500 mg calcium) 5. Folic Acid 1 MG Oral Tablet; TAKE 1 TABLET DAILY Requested for: [id number] 6. Vitamin B-6 25 MG Oral Tablet; TAKE 1 TABLET DAILY DIRECTED 7. Levothyroxine Sodium 75 MCG Oral Tablet; TAKE 1 TABLET DAILY 8. PredniSONE 10 MG Oral Tablet; TAKE 2 TABLET Every morning Requested for 9. Sulfamethoxazole-Trimethoprim 800-160 MG Oral Tablet; TAKE 1 TABLET DAILY ON MONDAY, MONDAY, AND MONDAY 10. Aspirin 81 MG TABS; TAKE 1 TABLET DAILY 11. Glucosamine TABS; Take 1 tablet twice daily Allergies 1. No Known Drug Allergies Vital Signs Weight: 165 lb BMI Calculated: 24.02 BSA Calculated: 1.91 Temperature: 98.2 F, Oral Heart Rate: 73 O2 Saturation: 96 Respiration: 16 Blood Pressure: 138 / 90, LUE, Sitting Constitutional: Well developed, well nourished male. No acute distress. Head: + facial symmetry Eyes: EOMi, PERRLA, low saccadic on gaze Mouth: Moist mucous membranes. White patches adherent to the soft palate. Neck: Trachea midline. No adenopathy or masses Respiratory: Non-labored respirations. Excellent air movement bilaterally. No wheeze, rales or rhonchi. No clubbing or cyanosis. Cardiovascular: RRR, no MRG. +2 radial pulses. <1s capillary refill. Abdomen: soft, active bowel sounds MSK/Extremities: Moving and developed symmetrically. Edema bilateral LEs Rt > Left. No calf tenderness. Neurologic: A&O, data recall in-tact. Appropriate affect.
[~2018-01-31] VITALS: Ht 177.8 cm; Wt 77.3 kg
[2018-01-31] VITALS (7 sets, daily range): BP systolic 147–169; BP diastolic 86–98; PULSE 52–67; TEMP 36.3–37; O2SAT 92–100; Ht 177.8 cm; Wt 77.3 kg
[~2018-01-31] MED LIST changes: +FENTANYL CITRATE INJ 50 MCG/1 ML 2 ML VIAL IV ONE; +LIDOCAINE 4% INH SOLN 4 ML BTL TOP ONE; +LIDOCAINE HCL 2% LOCAL 50ML VIAL INSTIL ONE; +LIDOCAINE VISCOUS 2% 100ML TOP ONE; +MIDAZOLAM HCL 5 MG/ML 1 ML VIAL IV ONE
--- NOTE | 2018-01-31 09:06 | Pre Sedation Assessment ---
Pre Sedation Assessment General Date of Sedation: Jan 31, 2018. Vital Signs Past 12 Hours Date Time Temp Pulse Resp B/P (MAP) Pulse Ox O2 Delivery O2 Flow Rate FiO2 01/31/18 08:18 36.5 53 22 150/96 (114) 96 Room Air Review Cardiovascular: regular rate, rhythm, no edema, no gallop, no JVD, no murmur, normal peripheral pulses Lungs: + wheezing Pre-Sedation Airway Assessment Smoking Status: Former Smoker Hx of Sleep Apnea: No Hx of difficult intubation: No Short Thick Neck: No Thyro-mental Distance: > 3 Finger Breadths Oral Cavity: Capped Teeth Mallampati Classification: Class III ASA Classification: Class II NPO Status Date of Last Intake of Fluids: Jan 30, 2018 Time of Last Intake of Fluids: 2329 Date of Last Intake of Solids: Jan 30, 2018 Time of Last Intake of Solids: 2300 Procedure Planning Contraindications for Sedation: None Current Medications Reviewed: Yes Notes The planned sedation has been discussed with the patient. Informed Consent was obtained. I have identified the patient, determined the appropriateness of sedation and have assessed the patient immediately prior to the procedure. All medicine(s) and interventions are by my order.
--- NOTE | 2018-01-31 10:02 | Post Sedation Assessment ---
Post Sedation Assessment General Date of Sedation Jan 31, 2018. Vital Signs: Vital Signs Past 12 Hours Date Time Temp Pulse Resp B/P (MAP) Pulse Ox O2 Delivery O2 Flow Rate FiO2 01/31/18 09:55 63 14 150/99 99 Oxymask 15 01/31/18 09:50 72 14 148/95 95 Oxymask 15 01/31/18 09:45 60 16 144/89 100 Oxymask 6 01/31/18 09:40 57 16 142/91 100 Oxymask 6 01/31/18 09:35 56 18 175/91 100 Oxymask 6 01/31/18 08:55 54 21 177/105 100 Oxymask 6 01/31/18 08:18 36.5 53 22 150/96 (114) 96 Room Air Post Procedure Recovery Score Activity: (2) Moves 4 extremities * Respiration: (2) Deep breath/cough Circulation: (2) +/-20% PreAnes Value Consciousness: (1) Arouseable (by name) Oxygen Saturation: (1) O2 needed for >90% Post Anesthesia Score: 8 Discharge Sedation Level of Care: Fast Track Phase II Post Sedation Plan On clinical assessment, the patient appears to have tolerated the sedation without complications. Patient is recovering as anticipated. Patient will continue to be monitored by nursing and may be discharged when sedation discharge criteria are met per below protocol. Upon Completions of procedure and additional 15 minutes continue every 5 minute vital signs and the P.A.R. score; then discharge to a Phase I or Fast Track to Phase II per the following guidelines: * Discharge Patient to appropriate Phase II area if PAR is 8 or greater or return to pre- procedure baseline. The post - procedure orders will be as directed. * If PAR score is less than 8 or not return to pre-procedure baseline then patient will follow Phase I monitoring till PAR is reached for Phase II. The Phase I may be done in procedure room or may call to secure a Phase I area. * If naloxone or flumazenil are used for reversal, hold in Phase I for an additional 60 -120 minutes before discharge to Phase II. Please call the Sedation Physician to re-evaluate and complete post-note for discharge to Phase II area. Do NOT discharge from procedure sedation or Phase 1 until post- sedation evaluation note is complete by procedure /sedation MD Sedation Discharge Instructions to be given to the patient at discharge to home.
--- NOTE | 2018-01-31 10:02 | Bronchoscopy Procedure Note ---
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 Start time: 934 End time: 954 Total time: minutes Analgesia: 2% liquid lidocaine: Via nebulizer 4% gel lidocaine: Via right naris 2% liquid lidocaine: Via bronchoscopy Sedation: Versed IV: 4mg Fentanyl IV: 100g Procedure: The Make My plate video bronchoscope was used for this procedure and passed down through the right naris Right naris/posterior naris/posterior oropharynx: Anatomically within normal limits Glottis: Anatomically within normal limits Vocal cords: Proper abduction and abduction, anatomically within normal limits Subglottis/trachea/Stephanie: Anatomically within normal limits, trachea was noted to have some mucus secretions Right bronchial tree: Right mainstem bronchus: Anatomically within normal limits Right upper lobe: Anatomically within normal limits Bronchus intermedius: Anatomically within normal limits Right middle lobe: Anatomically within normal limits, notable mucus secretions Right lower lobe: Anatomically within normal limits, notable mucus secretions Left bronchial tree: Left mainstem bronchus: Anatomically within normal limits Left upper lobe: Anatomically within normal limits Lingula: Anatomically within normal limits Left lower lobe: Anatomically within normal limits, diffuse mucus secretions Bronchial alveolar lavage: Right upper lobe Transbronchial biopsies: 5 right upper lobe EBL: 4 cc Complications: None Follow-up: ASU
--- NOTE | 2018-01-31 10:08 | Discharge Instructions ---
Discharge Instructions Date of Service Jan 31, 2018. Admission Reason for Admission: Abn Ct Scan, Pneumonia Discharge Discharge Diagnosis / Problem: Rule out invasive aspergillosis Discharge Goals Goal(s): Diagnostic testing Activity Recommendations Activity Limitations: resume your previous activity Exercise/Sports Limitations: as tolerated Shower/Bathe: tomorrow Driving or Machine Use: resume 1 day after discharge . Instructions / Follow-Up Instructions / Follow-Up Follow-up with Dr. Vernon Fajardo in the [facility] pulmonary division at scheduled appointment Current Hospital Diet Patient's current hospital diet: Discharge Diet Recommended Diet: Regular Diet Procedures Procedures Performed: BRONCHOSCOPY WITH transbronchial BIOPSY and bronchial lavage as well as conscious sedation Pending Studies Studies pending at discharge: yes List of pending studies: Pending portable x-ray Medical Emergencies . Who to Call and When: Medical Emergencies: If at any time you feel your situation is an emergency, please call 911 immediately. . Non-Emergent Contact Non-Emergency issues call your: Scrap Piler (As well as for continued hemoptysis after 24 hour window) Call Non-Emergent contact if: temperature is above 101 . . "Provider Documentation" section prepared by Vernon Fajardo. . Metal Gauge Maker Recommendations Metal Gauge Maker Recommendations: Please hold 81 mg aspirins for the next 3 days restart on 02/03/2018
--- NOTE | 2018-01-31 10:24 | DIAGNOSTIC IMAGING REPORT ---
CHEST 1 VW FRONT-NOT PORTABLE HISTORY: 77 years-old Male Rule out pneumothorax status post right upper lobe bronchoscopy with biopsy. Concern for possible postprocedural pneumothorax. COMPARISON: Chest radiograph 11/09/2017, CTA of the chest 11/07/2017 TECHNIQUE: Portable AP view of the chest FINDINGS: Cardiac silhouette is within normal limits in size. No postprocedural pneumothorax identified. Blunting of the left costophrenic angle suggests possible trace effusion with patchy subsegmental bibasilar and right lateral midlung reticular nodular opacities. No overt pulmonary edema. There is an acute to subacute appearing nondisplaced fracture involving the posterior lateral left ninth rib which was not seen on comparison chest CT. IMPRESSION: 1. No postprocedural pneumothorax identified. 2. Patchy bibasilar and right lateral midlung reticular nodular opacities are redemonstrated, better characterized on comparison chest CT. 3. Suspected trace pleural effusion on the left. 4. Acute to subacute appearing nondisplaced fracture of the posterior lateral left ninth rib. The above report was generated using voice recognition software. It may contain grammatical, syntax or spelling errors. Electronically signed by: Alexei Patel M.D. 01/31/2018 10:23 AM Dictated Date/Time: 01/31/2018 10:19 AM
== END | disposition home or self-care (01) ==
LOC: C.ACU 07:35
PROVIDERS: ATTEND Internal Medicine Critical Care Medicine
DX: B44.9 Aspergillosis, unspecified (principal); N18.3 Chronic kidney disease, stage 3 (moderate); E03.9 Hypothyroidism, unspecified; Z79.82 Long term (current) use of aspirin; Z79.52 Long term (current) use of systemic steroids; Z79.899 Other long term (current) drug therapy; Z86.718 Personal history of other venous thrombosis and embolism; K21.9 Gastro-esophageal reflux disease without esophagitis; Z98.890 Other specified postprocedural states; Z80.1 Family history of malignant neoplasm of trachea, bronchus and lung; Z82.69 Family history of other diseases of the musculoskeletal system and connective tissue

== ENCOUNTER → 2018-02-15 | Outpatient (CLI) | payer BC ==
[~2018-02-15] MED LIST changes: -FENTANYL CITRATE INJ 50 MCG/1 ML 2 ML VIAL IV ONE; -LIDOCAINE 4% INH SOLN 4 ML BTL TOP ONE; -LIDOCAINE HCL 2% LOCAL 50ML VIAL INSTIL ONE; -LIDOCAINE VISCOUS 2% 100ML TOP ONE; -MIDAZOLAM HCL 5 MG/ML 1 ML VIAL IV ONE; -NUTRTAB48 PO; -NYSS/ PO; -PRED20TA PO; -VNTHFA/IN INH; +[UNRECOGNIZED DRUG - OTHER] PO
== END | disposition home or self-care (01) ==
LOC: C.LAB 15:37
PROVIDERS: ATTEND Urology
DX: N18.3 Chronic kidney disease, stage 3 (moderate) (principal)

== ENCOUNTER 2018-02-26 10:00 | Day surgery (SDC) | payer BC ==
[2018-02-13 09:40] VITALS: Ht 177.8 cm; Wt 76.2 kg
--- NOTE | 2018-02-13 10:26 | PAT Medication Instructions ---
Service Date February 13, 2018. Current Home Medication List Aspirin (Aspirin Ec), 81 MG PO QAM Azathioprine (Imuran), 50 MG PO QPM Calcium Carbonate-Vitamin D (Calcium 500 + D), 1 TAB PO QPM Cyanocobalamin (Vitamin B12 500MCG), 500 MCG PO QAM Fluticasone Furoate-Vilanterol (Breo Ellipta), 1 INHA INTNAS QAM Folic Acid (Folic Acid), 1 MG PO QAM Latanoprost (Latanoprost), 1 DROP OPB HS Levothyroxine Sodium (Levothyroxine Sodium), 75 MCG PO QAM Prednisone Tab (Prednisone), 15 MG PO QAM Prednisone Tab (Prednisone), 10 MG PO PM Pyridoxine (Vitamin B6), 100 MG PO QAM Ranitidine (Zantac), 150 MG PO BID [Sulfamethoxazole], 1 TAB PO MWF [Vonaconazole], 1 TAB PO BID Medication Instructions For Your Scheduled Surgery -Continue as directed: [Sulfamethoxazole], 1 TAB PO MWF [Vonaconazole], 1 TAB PO BID - Hold the following medications starting on 02/16 (per surgeon): Aspirin (Aspirin Ec), 81 MG PO QAM - Hold the following medications the morning of surgery: Cyanocobalamin (Vitamin B12 500MCG), 500 MCG PO QAM Folic Acid (Folic Acid), 1 MG PO QAM Pyridoxine (Vitamin B6), 100 MG PO QAM - Take the following medications the morning of surgery with a sip of water: Fluticasone Furoate-Vilanterol (Breo Ellipta), 1 INHA INTNAS QAM Levothyroxine Sodium (Levothyroxine Sodium), 75 MCG PO QAM Prednisone Tab (Prednisone), 15 MG PO QAM Ranitidine (Zantac), 150 MG PO BID - Take the following medications as scheduled the night before surgery: Calcium Carbonate-Vitamin D (Calcium 500 + D), 1 TAB PO QPM Latanoprost (Latanoprost), 1 DROP OPB HS Prednisone Tab (Prednisone), 10 MG PO PM Ranitidine (Zantac), 150 MG PO BID Azathioprine (Imuran), 50 MG PO QPM (OK per rheumatology) If you have any questions please call us at [phone] or [phone] or [phone]
[2018-02-13 10:47] LABS: HEMATOCRIT 37.7 % (42-52); HEMOGLOBIN 12.6 g/dL (14.0-18.0); MEAN CELL VOLUME 107.1 fL (80-100); MEAN CORPUSCULAR HEMOGLOBIN 35.8 pg (25-34); MEAN CORPUSCULAR HGB CONC 33.4 g/dl (32-36); MEAN PLATELET VOLUME 9.4 fL (7.4-10.4); PLATELET COUNT 133 K/uL (130-400); RED CELL DISTRIBUTION WIDTH CV 17.1 % (11.5-14.5); RED CELL DISTRIBUTION WIDTH SD 65.3 fL (36.4-46.3); WHITE BLOOD COUNT 12.24 K/uL (4.8-10.8)
--- NOTE | 2018-02-13 10:52 | DIAGNOSTIC IMAGING REPORT ---
TWO VIEW CHEST CLINICAL HISTORY: Preoperative examination. FINDINGS: PA and lateral chest radiographs are compared to study dated 01/31/2018 and correlated with chest CT dated 11/07/2017. The cardiomediastinal silhouette is unremarkable. Interstitial thickening and subtle subpleural opacities are again noted in both lungs. No lobar consolidation or pleural effusion is identified. There is no pneumothorax. The skeletal structures are osteopenic. A mild compression deformity is noted in the midthoracic spine. There is mild thoracic hyperkyphosis. IMPRESSION: 1. There is no lobar consolidation or pleural effusion. 2. Reticulonodular/interstitial opacities with subtle foci of subpleural opacification are similar to previous. This was better characterized on the 11/07/2017 CT scan. Electronically signed by: Alex Becerra M.D. 02/13/2018 10:50 AM Dictated Date/Time: 02/13/2018 10:48 AM
[2018-02-13 11:10] LABS: BASO % 0.5 %; BASO ABS # 0.06 K/uL (0-0.2); IG# 0.74 K/uL (0.00-0.02); LYMPH % 5.1 %; LYMPH ABS # 0.62 K/uL (1.2-3.4); MONO ABS # 0.61 K/uL (0.11-0.59); NEUT % 83.4 %; NEUT ABS # 10.21 K/uL (1.4-6.5)
[2018-02-13 13:02] LABS: CALCIUM 9.1 mg/dl (8.5-10.1); CREATININE 1.66 mg/dl (0.60-1.40); POTASSIUM 4.3 mmol/L (3.5-5.1)
[~2018-02-26] VITALS: Ht 177.8 cm; Wt 76.2 kg
[~2018-02-26 10:00] MED LIST changes: +ATROPINE SULFATE 0.1 MG/ML 5ML SYR IV PRN; +EpHEDrine SULFATE INJ 50 MG/ML AMP IV PRN; +HYDROmorphone INJ 1 MG/ML SYR IV PRN; +LACTATED RINGER'S 1000ML 1,000 ML IV SCH; +ONDANSETRON INJ 2 MG/ML 2 ML VIAL IV PRN; +PHENYLEPHRINE 100MCG/ML 5ML SYR IV PRN
[2018-02-26] MEDS ORDERED: CEFAZOLIN SOD 2000MG/15 ML IV PUSH ONE (10:26)
[2018-02-26 10:48] VITALS: BP 162/90; PULSE 58; TEMP 36.4; O2SAT 96
[2018-02-26] MEDS ORDERED: PROPOFOL IV EMULSION 10 MG/ML 20 ML VIAL ONE (12:26)
[2018-02-26] MEDS ORDERED: MIDAZOLAM HCL 1 MG/ML 2ML VIAL ONE (12:26)
[2018-02-26] MEDS ORDERED: LIDOCAINE HCL 2% 2 ML VIAL (20MG/ML) ONE (12:26)
[2018-02-26] MEDS ORDERED: DEXAMETHASONE SOD INJ 4 MG/ML VIAL ONE (12:26)
[2018-02-26] MEDS ORDERED: ONDANSETRON INJ 2 MG/ML 2 ML VIAL ONE (12:26)
[2018-02-26] MEDS ORDERED: FENTANYL CITRATE INJ 50 MCG/1 ML 2 ML VIAL ONE ×2 (12:26→14:19)
--- NOTE | 2018-02-26 12:36 | Discharge Instructions ---
Discharge Instructions Date of Service February 26, 2018. Admission Reason for Admission: Benign Prostatic Hyperplasia W/Urinary Obstruction Discharge Discharge Diagnosis / Problem: Bladder lesion, Gross hematuria Discharge Goals Goal(s): Decrease discomfort, Improve function Activity Recommendations Activity Limitations: resume your previous activity Lifting Limitations: gradually increase as tolerated Exercise/Sports Limitations: gradually increase as tolerated Shower/Bathe: no limitations . Instructions / Follow-Up Instructions / Follow-Up May have blood in urine. May have pelvic discomfort. Call if any fevers or chills. Call if any issues with pain or discomfort. Monitor for other issues. [place] care instructions per nursing and routine. Follow up arranged in office. Current Hospital Diet Patient's current hospital diet: Discharge Diet Recommended Diet: Regular Diet Procedures Procedures Performed: Cystoscopy with TURBT, Medium Pending Studies Studies pending at discharge: no Medical Emergencies . Who to Call and When: Medical Emergencies: If at any time you feel your situation is an emergency, please call 911 immediately. . Non-Emergent Contact Non-Emergency issues call your: Primary Care Provider, Urologist, Specialist ( Animal Handler ) Call Non-Emergent contact if: you have a fever, temperature is above 100.5, temperature is above 101, temperature is above 101.5, your pain is not controlled, your pain is worsening, your pain is unusual for you . . "Provider Documentation" section prepared by Hal Wilcox. .
[2018-02-26] MEDS ORDERED: OXYC7.5T65 PO (12:38)
[2018-02-26] MEDS ORDERED: DTR/5 PO (12:38)
[2018-02-26] MEDS ORDERED: TAMS0.4C38 PO (12:38)
[2018-02-26] MEDS ORDERED: PHEN-876 PO (12:38)
[2018-02-26] MEDS ORDERED: SULF800T23 PO (12:38)
[2018-02-26] MEDS ORDERED: CIPR-255 PO (12:38)
[2018-02-26] MEDS ORDERED: OXYCODONE/ACETAMINOPHEN 7.5-325 TAB PO PRN (12:45)
--- NOTE | 2018-02-26 13:41 | [facility] Operative Report ---
Operative Report Operative Date February 26, 2018. Pre-Operative Diagnosis Bladder Lesions, Gross Hematuria Post-Operative Diagnosis Same Procedure(s) Performed TURBT, Armand Surgeon Brenden Estimated Blood Loss Minimal Findings Large patch of small papillary lesions of bladder of the base of bladder. Specimens 1 Bladder Tumor Drains Donis Anesthesia Type MAC Complication(s) none Disposition Recovery Room / PACU Indications Gross Hematuria with bladder lesions. Risks and benefits discussed at length. 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 Description of Procedure Patient was consented and brought back to the operating room. Patient was placed under anesthesia in the supine position and moved to the dorsal lithotomy position. Patient was prepped and draped in the regular sterile fashion. A time out was completed. A 30degree Cystoscope was placed into the bladder and the entire bladder was examined. The UO's were identified. The lesions were identified and the resection scope placed. Resection was taken of the tumor and lesions. Both UO's were identified in close proximaty to the large lesion. The Right was within approx 6 mm of tumor resection. No resection was taken over the UO on either side and flux of urine was appreciated bilaterally after resection. Approximately 6.8 cm of tumor was resected from the base/trigone and right base. The wound beds were fulgurated and cauterized with the loop. No further lesions were identified. The resected tissues were sent for pathologic analysis. The bladder was emptied and reassessed. No bleeding or areas of concern. The scope was removed. An 18 Fr donis was placed with good drainage. The patient was cleaned, aroused from anesthesia, and transferred to the pacu in stable condition having tolerated the procedure well with no complications. I was present and participated in all aspects of the procedure. The patient will be monitored in the PACU until transferred. I attest to the content of the Intraoperative Record and any orders documented therein. Any exceptions are noted below.
[2018-02-26] MEDS ORDERED: HydrALAZINE HCL 20 MG/ML VIAL ONE (14:14)
[2018-02-26] MEDS ORDERED: HydrALAZINE HCL 20 MG/ML VIAL IV. ONE (14:15)
[2018-02-26] MEDS: FENTANYL CITRATE INJ 50 MCG/1 ML 2 ML VIAL IV PRN ×3 (14:21→14:31)
--- NOTE | 2018-02-26 14:49 | Anesthesiology Progress Note ---
Anesthesia Post Op Note Date & Time February 26, 2018 at 14:48 Vital Signs Pain Intensity: 3 Vital Signs Past 12 Hours Date Time Temp Pulse Resp B/P (MAP) Pulse Ox O2 Delivery O2 Flow Rate FiO2 02/26/18 14:45 36.4 60 16 166/92 93 Room Air 02/26/18 14:35 64 16 147/88 95 Room Air 02/26/18 14:25 60 16 172/87 93 Room Air 02/26/18 14:15 55 16 181/130 100 Oxymask 10 02/26/18 14:05 59 16 188/129 100 Oxymask 10 02/26/18 13:55 61 16 195/105 100 Oxymask 10 02/26/18 13:45 36.2 65 16 192/109 100 Oxymask 10 02/26/18 10:48 36.4 58 18 162/90 (114) 96 Room Air Notes Mental Status: alert / awake / arousable, participated in evaluation Pt Amnestic to Procedure: Yes Nausea / Vomiting: adequately controlled Pain: adequately controlled Airway Patency, RR, SpO2: stable & adequate BP & HR: stable & adequate Hydration State: stable & adequate Anesthetic Complications: no major complications apparent BP improved after hydralazine. VSS. Pt without complaints.
[2018-02-26 15:00] VITALS: BP 175/87; PULSE 68; TEMP 36.3; O2SAT 97
[2018-02-26 15:30] VITALS: BP 175/100; PULSE 61; TEMP 36.2; O2SAT 97
[2018-02-26 16:15] VITALS: BP 169/93; PULSE 64; TEMP 36.3; O2SAT 97
== END 2018-02-26 16:39 | disposition home or self-care (01) ==
LOC: C.ACU 10:00
PROVIDERS: ATTEND Urology
DX: C68.0 Malignant neoplasm of urethra (principal); N40.1 Benign prostatic hyperplasia with lower urinary tract symptoms; N13.8 Other obstructive and reflux uropathy; R31.0 Gross hematuria; R30.0 Dysuria; N18.3 Chronic kidney disease, stage 3 (moderate); K21.9 Gastro-esophageal reflux disease without esophagitis; J44.9 Chronic obstructive pulmonary disease, unspecified; K44.9 Diaphragmatic hernia without obstruction or gangrene; E78.5 Hyperlipidemia, unspecified; M19.90 Unspecified osteoarthritis, unspecified site; E89.0 Postprocedural hypothyroidism; Z79.52 Long term (current) use of systemic steroids; Z86.718 Personal history of other venous thrombosis and embolism; Z87.01 Personal history of pneumonia (recurrent); Z82.49 Family history of ischemic heart disease and other diseases of the circulatory system; Z87.891 Personal history of nicotine dependence; Z79.82 Long term (current) use of aspirin

== ENCOUNTER 2018-05-08 08:56 | Inpatient (IN) | payer BC, OTHER ==
[2018-04-25 11:39] VITALS: BMI 24.0
[~2018-05-08] VITALS: Ht 177.8 cm; Wt 75.6 kg
[2018-05-08] VITALS (13 sets, daily range): BP systolic 110–178; BP diastolic 58–93; PULSE 55–84; TEMP 36–37.9; O2SAT 91–98; Ht 177.8 cm; Wt 75.6 kg
[~2018-05-08 08:56] MED LIST changes: -ASPI81TA28 PO; -ATROPINE SULFATE 0.1 MG/ML 5ML SYR IV PRN; +CIPROFLOXACIN / D5W 400 MG IV SCH; +DEXAMETHASONE SOD INJ 4 MG/ML VIAL ONE; -EpHEDrine SULFATE INJ 50 MG/ML AMP IV PRN; +FENTANYL CITRATE INJ 50 MCG/1 ML 2 ML VIAL ONE; +FLM4 PO; -FLUT1INH INTNAS; -HYDROmorphone INJ 1 MG/ML SYR IV PRN; +LIDOCAINE HCL 2% 2 ML VIAL (20MG/ML) ONE; +MIDAZOLAM HCL 1 MG/ML 2ML VIAL ONE; +MITOMYCIN FOR INJ 40 MG in SYRINGE 40 ML INSTIL SCH; -ONDANSETRON INJ 2 MG/ML 2 ML VIAL IV PRN; +ONDANSETRON INJ 2 MG/ML 2 ML VIAL ONE; -PHENYLEPHRINE 100MCG/ML 5ML SYR IV PRN; +PROPOFOL IV EMULSION 10 MG/ML 20 ML VIAL ONE; +SULF800T23 PO; -SULFPOW92 PO; -[UNRECOGNIZED DRUG - OTHER] PO
[2018-05-08] MEDS ORDERED: FENTANYL CITRATE INJ 50 MCG/1 ML 2 ML VIAL IV PRN (09:15)
[2018-05-08] MEDS ORDERED: ATROPINE SULFATE 0.1 MG/ML 5ML SYR IV PRN (09:15)
[2018-05-08] MEDS ORDERED: HYDROmorphone INJ 2 MG/ML SYR/VIAL IV PRN (09:15)
[2018-05-08] MEDS ORDERED: EpHEDrine SULFATE INJ 50 MG/ML AMP IV PRN (09:15)
[2018-05-08] MEDS ORDERED: PHENYLEPHRINE 100MCG/ML 5ML SYR IV PRN (09:15)
[2018-05-08] MEDS ORDERED: LABETALOL HCL IV 5 MG/ML 20ML IV PRN (09:15)
[2018-05-08] MEDS ORDERED: FLUMAZENIL 0.1 MG/1 ML 10 ML VIAL IV PRN (09:15)
[2018-05-08] MEDS ORDERED: NALOXONE HCL 0.4 MG/1 ML VIAL/CARP IV PRN (09:15)
[2018-05-08] MEDS ORDERED: MEPERIDINE HCL 25 MG/ML CARP IV PRN (09:15)
--- NOTE | 2018-05-08 09:40 | Discharge Instructions ---
Discharge Instructions Date of Service May 08, 2018. Admission Reason for Admission: Bladder Tumor Discharge Discharge Diagnosis / Problem: Bladder Cancer Discharge Goals Goal(s): Decrease discomfort, Improve function Activity Recommendations Activity Limitations: resume your previous activity Lifting Limitations: gradually increase as tolerated Exercise/Sports Limitations: gradually increase as tolerated . Current Hospital Diet Patient's current hospital diet: Discharge Diet Recommended Diet: Regular Diet Procedures Procedures Performed: TURBT and Mitomycin instillation Pending Studies Studies pending at discharge: no Medical Emergencies . Who to Call and When: Medical Emergencies: If at any time you feel your situation is an emergency, please call 911 immediately. . Non-Emergent Contact Non-Emergency issues call your: Primary Care Provider, Urologist Call Non-Emergent contact if: you have a fever, temperature is above 101, temperature is above 101.5, your pain is not controlled, your pain is worsening , your pain is unusual for you . . "Provider Documentation" section prepared by Hal Wilcox. .
[2018-05-08] MEDS ORDERED: TAMS0.4C38 PO (09:43)
[2018-05-08] MEDS ORDERED: CEPH-571 PO (09:43)
[2018-05-08] MEDS ORDERED: OXYC7.5T65 PO (09:43)
[2018-05-08] MEDS ORDERED: PHEN-775 PO (09:43)
[2018-05-08] MEDS ORDERED: OXYCODONE/ACETAMINOPHEN 7.5-325 TAB PO PRN (09:45)
[2018-05-08] MEDS ORDERED: KETAMINE HCL INJ 50 MG/ML 10 ML VIAL ONE (09:54)
[2018-05-08] MEDS ORDERED: PROPOFOL IV EMULSION 10 MG/ML 20 ML VIAL ONE ×3 (10:07→11:25)
[2018-05-08] MEDS ORDERED: Cysto-Conray II 17.2% 250ML BOTTLE ONE (10:49)
[2018-05-08] MEDS ORDERED: CEFTRIAXONE SOD 1 GM VIAL ONE (10:53)
--- NOTE | 2018-05-08 11:29 | DIAGNOSTIC IMAGING REPORT ---
RETROGRADE INCLUDES KUB CLINICAL HISTORY: RETROGRADE COMPARISON STUDY: CT of the abdomen and pelvis May 25, 2016. Fluoroscopy time: 38 seconds. FINDINGS: Single fluoroscopic image from right retrograde exam was obtained and demonstrates placement of a right ureteral stent. Distal aspect of stent was not imaged on this exam. IMPRESSION: Fluoroscopic image from right retrograde exam with ureteral stent insertion. Electronically signed by: Sajan Cuevas M.D. 05/08/2018 11:27 AM Dictated Date/Time: 05/08/2018 11:25 AM
--- NOTE | 2018-05-08 11:57 | [facility] Operative Report ---
Operative Report Operative Date May 08, 2018. Pre-Operative Diagnosis High Grade UCC Post-Operative Diagnosis Same Procedure(s) Performed TURBT, large. Instillation of Mitomycin. Bilateral retrograde pyelogram. Right Stent placement. Surgeon Brenden Estimated Blood Loss Minimal Findings Multiple patches of erythema vs lesions along bladder. Specimens Resection of bladder tumor Drains 18 Fr [place]oughlin. 6 Fr Multilength on Right Anesthesia Type General Complication(s) none Disposition Recovery Room / PACU Indications Patient with HG Bladder cancer on immunosuppression. Here for re-resection for full staging and instillation of mitomycin. Risks and benefits discussed at length. Description of Procedure Patient was consented and brought back to the operating room. Patient was placed under anesthesia in the supine position and moved to the dorsal lithotomy position. Patient was prepped and draped in the regular sterile fashion. A time out was completed. A 30degree Cystoscope was placed into the bladder and the entire bladder was examined. The UO's were identified. The bladder was surveyed and multiple areas of erythema, edema, inflammation, or lesion were noted. Due to history, these were deemed suspicious. The bladder side resection site on the right was also assessed. The left then right UO was cannulized with an opened ended catheter and contrast was placed for a retrograde pyelogram. With further inspection, it was deemed tumor involved the right UO. A wire was placed followed by a 6 Fr multilength catheter. This was confirmed with fluoroscopy. A resection scope was placed with a fine bipolar loop. The entire bladder had been surveyed and the areas of concern noted. Resection of the right lateral wall commenced. The resection site wall was found to contain patches of papillary irritated lesions vs edema. This was resected and sent for pathologic analysis. Other areas were noted through the bladder. Approx 5.4 cm of tumor and lesions were resected with the edges and base of tumor fulgurated. The entire area was inspected and no residual areas of concern were noted. All bleeding had been controlled. The bladder was emptied. The scope was removed. The patient was cleaned, aroused from anesthesia, and transferred to the pacu in stable condition having tolerated the procedure well with no complications. I was present and participated in all aspects of the procedure. The patient will be monitored in the PACU until transferred. I attest to the content of the Intraoperative Record and any orders documented therein. Any exceptions are noted below. I attest to the content of the Intraoperative Record and any orders documented therein. Any exceptions are noted below.
--- NOTE | 2018-05-08 12:15 | Anesthesiology Progress Note ---
Anesthesia Post Op Note Date & Time May 08, 2018 at 12:15 Vital Signs Pain Intensity: 0 Vital Signs Past 12 Hours Date Time Temp Pulse Resp B/P (MAP) Pulse Ox O2 Delivery O2 Flow Rate FiO2 05/08/18 12:05 53 18 152/76 98 Room Air 05/08/18 11:58 36.0 54 19 144/84 100 Oxymask 10 05/08/18 09:27 36.8 62 18 176/92 (120) 97 Room Air Notes Mental Status: alert / awake / arousable, participated in evaluation Pt Amnestic to Procedure: Yes Nausea / Vomiting: adequately controlled Pain: adequately controlled Airway Patency, RR, SpO2: stable & adequate BP & HR: stable & adequate Hydration State: stable & adequate Anesthetic Complications: no major complications apparent
[2018-05-08] MEDS ORDERED: BELLADONNA/OPIUM SUPP 60 MG SUPP PR ONE (12:42)
[2018-05-08] MEDS ORDERED: NURSING VERBAL MED ORDER ONE (13:00)
[2018-05-08] MEDS ORDERED: ONDANSETRON INJ 2 MG/ML 2 ML VIAL IV PRN (16:30)
[2018-05-08] MEDS ORDERED: PIPERACILL/TAZOBAC CONSULT ACTIVE PRN (16:30)
--- NOTE | 2018-05-08 16:40 | Anesthesiology Progress Note ---
Anesthesia Progress Note Date of Service May 08, 2018. Progress Notes Patient near ready to go home when he developed pain at the site of his bladder catheter and some shaking. Catheter removed and he felt better for a while but again started with the shaking tremors and has had some nausea and vomiting of the liquids he had taken PO. Temperature and vitals are quite normal to this point. Dr Wilcox aware and is having medicine see him in case he will need to be admitted and he will try to contact his modeling director for any recommendations about his steroid therapy and whether to give him any extra.
[2018-05-08] MEDS ORDERED: PIPERACILL/TAZOBAC IV 3.375 GM in DEXTROSE 5% 100ML 100 ML IV ONE (17:00)
[2018-05-08 17:25] LABS: HEMATOCRIT 37.2 % (42-52); HEMOGLOBIN 12.3 g/dL (14.0-18.0); MEAN CELL VOLUME 107.8 fL (80-100); MEAN CORPUSCULAR HEMOGLOBIN 35.7 pg (25-34); MEAN PLATELET VOLUME 9.7 fL (7.4-10.4); PLATELET COUNT 172 K/uL (130-400); RED CELL DISTRIBUTION WIDTH CV 15.1 % (11.5-14.5); RED CELL DISTRIBUTION WIDTH SD 58.9 fL (36.4-46.3); WHITE BLOOD COUNT 10.61 K/uL (4.8-10.8)
[2018-05-08] MEDS ORDERED: FLUCONAZOLE / NSS 200 MG in PREMIXED NSS 100 ML IV SCH (17:30)
--- NOTE | 2018-05-08 17:43 | DIAGNOSTIC IMAGING REPORT ---
CHEST 2 VIEWS ROUTINE CLINICAL HISTORY: Post Op. Hx of PNa postoperative evaluation COMPARISON STUDY: 02/13/2018 FINDINGS: Moderate prominence of pulmonary vasculature. Developing minimal interstitial changes both lung bases and left perihilar region. Pulmonary apices are clear. Lateral projection shows increased parenchymal prominence retrocardiac region. IMPRESSION: Developing components of pulmonary vascular congestion versus basilar interstitial inflammatory change. The above report was generated using voice recognition software. It may contain grammatical, syntax or spelling errors. Electronically signed by: Colin Agustin M.D. 05/08/2018 5:41 PM Dictated Date/Time: 05/08/2018 5:40 PM
[2018-05-08] MEDS: ONDANSETRON INJ 2 MG/ML 2 ML VIAL IV PRN ×2 (17:45→17:51)
[2018-05-08 17:47] LABS: ALBUMIN 3.1 gm/dl (3.4-5.0); CALCIUM 8.2 mg/dl (8.5-10.1); CREATININE 1.55 mg/dl (0.60-1.40); POTASSIUM 3.3 mmol/L (3.5-5.1); TOTAL PROTEIN 5.6 gm/dl (6.4-8.2)
[2018-05-08 17:53] LABS: MEAN CORPUSCULAR HGB CONC 33.1 g/dl (32-36)
--- NOTE | 2018-05-08 20:15 | Medical Consult ---
Consultation Date of Consultation: May 08, 2018. Attending Physician: Radha Lopez DO Reason for Consultation: Shaking, n/v post-op History of Present Illness 78 y/o M who was admitted on 05/08 s/p TURBT with Dr. Wilcox. Pt was feeling unwell s/p procedure. He started having bladder pain that did improve s/p Percocet, suppository, and d/c donis. It was then noted that pt had blood in his urine and had an episode of n/v. He then felt somewhat improved. He was given IVF, but then started shaking. This was "on and off" per family. He was noted to have 95cc urine in his bladder, BS was 79, 95. VSS. Pt states he felt fine pre-op and in the days leading up to this. Pt denies fever, SOB, chest pain, abd pain, n/v/c/d. Pt does have LE swelling at baseline and this is no different than usual. Pt denied nausea during our discussion, however after CXR, pt had another episode of emesis. 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 His wire stretcher, Dr. Garcia, called me and states that this is not the case. Past Medical/Surgical History Medical Problems: (1) Hypoxia Status: Acute (2) Laceration Status: Acute Family History Family history was reviewed; no changes noted. Social History Smoking Status: Former Smoker Alcohol Use: none Drug Use: none Marital Status: Occupation Status: retired Allergies Coded Allergies: No Known Allergies (Verified , 05/08/18) Current Inpatient Medications Current Inpatient Medications Medications (Trade) Dose Ordered Sig/Luis Miguel Route Start Time Stop Time Status Last Admin Dose Admin Lactated Ringer's 1,000 ml @ 15 mls/hr Q24H IV 05/08/18 06:00 05/09/18 05:59 05/08/18 09:15 15 MLS/HR Hydromorphone HCl (Dilaudid Inj) 0.5 mg Q5M PRN IV 05/08/18 09:15 05/09/18 09:14 Fentanyl Citrate (Fentanyl Inj) 25 mcg Q5M PRN IV 05/08/18 09:15 05/09/18 09:14 Naloxone HCl (Narcan Inj) 0.2 mg Q2M PRN IV 05/08/18 09:15 05/09/18 09:14 Meperidine HCl (Demerol Inj) 12.5 mg Q5M PRN IV 05/08/18 09:15 05/09/18 09:14 Flumazenil (Romazicon Inj) 0.2 mg Q2M PRN IV 05/08/18 09:15 05/09/18 09:14 Labetalol HCl (Normodyne IV) 5 mg Q5M PRN IV 05/08/18 09:15 Ephedrine Sulfate (EpHEDrine SULFATE INJ) 5 mg Q5M PRN IV 05/08/18 09:15 05/09/18 09:14 Atropine Sulfate (Atropine Sulfate 0.1mg/ml Inj) 0.5 mg Q1M PRN IV 05/08/18 09:15 05/09/18 09:14 Phenylephrine HCl (Lance-Synephrine 500MCG/5ML Syr) 100 mcg Q5M PRN IV 05/08/18 09:15 05/09/18 09:14 Oxycodone/ Acetaminophen (Percocet 7.5-325MG Tab) 1 tab Q4H PRN PO 05/08/18 09:45 05/22/18 09:44 05/08/18 13:06 1 TAB Ondansetron HCl (Zofran Inj) 4 mg Q4H PRN IV 05/08/18 16:30 06/07/18 16:29 Piperacillin Sod/ Tazobactam Sod 3.375 gm/Dextrose 115 ml @ 28.75 mls/ hr Q8H IV 05/08/18 22:00 05/09/18 21:59 UNV Miscellaneous Information (Consult) 1 ea UD PRN N/A 05/08/18 16:30 06/07/18 16:29 Fluconazole/ Sodium Chloride 200 mg/Prmx 100 ml @ 100 mls/hr Q24H IV 05/08/18 17:30 05/09/18 17:29 05/08/18 17:46 100 MLS/HR Review of Systems Pertinent positives and negatives reviewed in HPI--all others negative Physical Exam Date Time Temp Pulse Resp B/P (MAP) Pulse Ox O2 Delivery O2 Flow Rate FiO2 05/08/18 18:30 37.9 84 18 110/58 93 Room Air 05/08/18 17:33 37.2 81 18 139/67 93 Room Air 05/08/18 16:30 37 79 20 173/77 93 Room Air 05/08/18 16:00 36.3 58 20 178/82 95 Room Air 05/08/18 15:15 36.5 60 20 156/84 95 Room Air 05/08/18 14:26 36.5 55 20 158/82 94 Room Air 05/08/18 13:20 65 20 168/85 97 Room Air 05/08/18 12:50 36 60 20 169/77 92 Room Air 05/08/18 12:20 36.4 59 20 145/93 91 Room Air 05/08/18 12:15 36.1 57 18 140/79 95 Room Air 05/08/18 12:05 53 18 152/76 98 Room Air 05/08/18 11:58 36.0 54 19 144/84 100 Oxymask 10 05/08/18 09:27 36.8 62 18 176/92 (120) 97 Room Air General Appearance: WD/WN, no apparent distress, + pertinent finding (pt was sleeping on my initial entrance and no shaking noted while I spoke with his family. Upon waking, pt noted to have mild full body shaking that would start and stop. It became worse when pt was discussing the shaking directly) Head: normocephalic, atraumatic Eyes: normal inspection, sclerae normal Respiratory/Chest: normal breath sounds, no respiratory distress Cardiovascular: regular rate, rhythm, normal peripheral pulses Abdomen/GI: non tender, soft Extremities/Musculoskelatal: no calf tenderness, + pedal edema Neurologic/Psych: alert, normal mood/affect, oriented x 3 Skin: normal color, warm/dry Laboratory Results Last 24 Hours Test 05/08/18 13:36 05/08/18 15:30 05/08/18 17:07 Bedside Glucose 79 mg/dl 95 mg/dl White Blood Count 10.61 K/uL Red Blood Count 3.45 M/uL Hemoglobin 12.3 g/dL Hematocrit 37.2 % Mean Corpuscular Volume 107.8 fL Mean Corpuscular Hemoglobin 35.7 pg Mean Corpuscular Hemoglobin Concent 33.1 g/dl Platelet Count 172 K/uL Mean Platelet Volume 9.7 fL RDW Standard Deviation 58.9 fL RDW Coefficient of Variation 15.1 % Neutrophils % (Manual) 88.7 % Lymphocytes % (Manual) 3.5 % Variant Lymphocytes % (manual) 0.9 % Monocytes % (Manual) 1.7 % Metamyelocytes % 1.7 % Myelocytes % 3.5 % Neutrophils # (Manual) 9.41 K/uL Total Absolute Neutrophils 9.41 K/uL Lymphocytes # (Manual) 0.37 K/uL Absolute Variant Lymphocytes 0.10 K/uL Total Absolute Lymphocytes 0.47 K/uL Monocytes # (Manual) 0.18 K/uL Metamyelocytes # 0.18 K/uL Myelocytes # 0.37 K/uL Sodium Level 141 mmol/L Potassium Level 3.3 mmol/L Chloride Level 106 mmol/L Carbon Dioxide Level 26 mmol/L Anion Gap 9.0 mmol/L Blood Urea Nitrogen 24 mg/dl Creatinine 1.55 mg/dl Est Creatinine Clear Calc Drug Dose 39.2 ml/min Estimated GFR () 48.3 Estimated GFR (Non- 41.7 BUN/Creatinine Ratio 15.6 Random Glucose 100 mg/dl Lactic Acid Level 2.1 mmol/L Calcium Level 8.2 mg/dl Total Bilirubin 0.4 mg/dl Aspartate Amino Transf (AST/SGOT) 23 U/L Alanine Aminotransferase (ALT/SGPT) 27 U/L Alkaline Phosphatase 43 U/L Total Protein 5.6 gm/dl Albumin 3.1 gm/dl Globulin 2.5 gm/dl Albumin/Globulin Ratio 1.2 Procalcitonin 0.08 ng/ml Random Cortisol 7.14 mcg/dl Assessment & Plan 78 y/o M who was admitted on 05/08 s/p TURBT with Dr. Wilcox. Pt was feeling unwell s/p procedure. He started having bladder pain that did improve s/p Percocet, suppository, and d/c donis. It was then noted that pt had blood in his urine and had an episode of n/v. He then felt somewhat improved. He was given IVF, but then started shaking. This was "on and off" per family. He was noted to have 95cc urine in his bladder, BS was 79, 95. VSS. Pt states he felt fine pre-op and in the days leading up to this. Pt denies fever, SOB, chest pain, abd pain, n/v/c/d, LE swelling prior. Pt denied nausea during our discussion, however after CXR, pt had another episode of emesis. 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
[2018-05-08] MEDS: PIPERACILL/TAZOBAC IV 3.375 GM in DEXTROSE 5% 100ML 100 ML IV SCH (21:36)
[2018-05-09 00:01] VITALS: BP 119/74; PULSE 62; TEMP 37.3; O2SAT 97
[2018-05-09 04:14] VITALS: BP 112/79; PULSE 62; TEMP 36.9; O2SAT 99
[2018-05-09 05:01] LABS: CREATININE 1.74 mg/dl (0.60-1.40)
[2018-05-09] MEDS: PIPERACILL/TAZOBAC IV 3.375 GM in DEXTROSE 5% 100ML 100 ML IV SCH (05:59)
[2018-05-09 08:00] VITALS: BP 176/84; PULSE 58; TEMP 37.1; O2SAT 90; O2SAT 94
[2018-05-09 12:18] VITALS: BP 124/84; PULSE 58; TEMP 37.1; O2SAT 94
[2018-05-09 12:53] VITALS: BP 124/84; PULSE 58; TEMP 37; O2SAT 94
--- NOTE | 2018-05-09 14:21 | Progress Note ---
Subjective Date of Service: May 09, 2018. Subjective Pt evaluation today including: conversation w/ patient, physical exam, chart review, lab review, review of studies Pain: Controlled. Minimal Patient developed tremor and chills postoperatively. Had nausea as well. Was stable with vitals and has since improved greatly. No further issues. No shaking. NO ill feelings. AMbulating. No issues with diet. Tolerating PO intake. 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 Had neuropathic issues with Radha's NOw doing well. Voiding frequently but well. Minor irritations. POD 1 s/p TURBT with right stent and instillation of mitomycin. Problem List Medical Problems: (1) Hypoxia Status: Acute (2) Laceration Status: Acute Review of Systems All Other Systems: Reviewed and Negative Objective Vital Signs Date Time Temp Pulse Resp B/P (MAP) Pulse Ox O2 Delivery O2 Flow Rate FiO2 05/09/18 12:53 37.0 58 16 124/84 (97) 94 Nasal Cannula 05/09/18 12:18 37.1 58 16 94 Nasal Cannula 05/09/18 08:00 90 Room Air 05/09/18 08:00 37.1 58 16 176/84 (114) 94 Room Air 05/09/18 04:14 36.9 62 19 112/79 (90) 99 Nasal Cannula 2.0 05/09/18 00:01 37.3 62 21 119/74 (89) 97 Nasal Cannula 2.0 05/08/18 23:59 98 Nasal Cannula 2.0 05/08/18 20:00 37.7 76 17 139/80 (99) 96 Nasal Cannula 2.0 05/08/18 20:00 96 Nasal Cannula 2.0 05/08/18 19:30 37.2 75 18 139/80 94 Nasal Cannula 2.0 05/08/18 18:30 37.9 84 18 110/58 93 Room Air 05/08/18 17:33 37.2 81 18 139/67 93 Room Air 05/08/18 16:30 37 79 20 173/77 93 Room Air 05/08/18 16:00 36.3 58 20 178/82 95 Room Air 05/08/18 15:15 36.5 60 20 156/84 95 Room Air 05/08/18 14:26 36.5 55 20 158/82 94 Room Air Physical Exam General Appearance: WD/WN, no apparent distress Eyes: normal inspection ENT: normal ENT inspection, hearing grossly normal Neck: no JVD Respiratory/Chest: no respiratory distress, no accessory muscle use Cardiovascular: regular rate, rhythm Abdomen: non tender, soft Extremities: normal range of motion, normal inspection, no pedal edema, no calf tenderness 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, no motor/sensory deficits, alert, normal mood/affect, oriented x 3 Skin: normal color, warm/dry, no rash Lymphatic: no adenopathy Laboratory Results Last 24 Hours Test 05/08/18 15:30 05/08/18 17:07 05/09/18 04:16 Bedside Glucose 95 mg/dl White Blood Count 10.61 K/uL Red Blood Count 3.45 M/uL Hemoglobin 12.3 g/dL Hematocrit 37.2 % Mean Corpuscular Volume 107.8 fL Mean Corpuscular Hemoglobin 35.7 pg Mean Corpuscular Hemoglobin Concent 33.1 g/dl Platelet Count 172 K/uL Mean Platelet Volume 9.7 fL RDW Standard Deviation 58.9 fL RDW Coefficient of Variation 15.1 % Neutrophils % (Manual) 88.7 % Lymphocytes % (Manual) 3.5 % Variant Lymphocytes % (manual) 0.9 % Monocytes % (Manual) 1.7 % Metamyelocytes % 1.7 % Myelocytes % 3.5 % Neutrophils # (Manual) 9.41 K/uL Total Absolute Neutrophils 9.41 K/uL Lymphocytes # (Manual) 0.37 K/uL Absolute Variant Lymphocytes 0.10 K/uL Total Absolute Lymphocytes 0.47 K/uL Monocytes # (Manual) 0.18 K/uL Metamyelocytes # 0.18 K/uL Myelocytes # 0.37 K/uL Sodium Level 141 mmol/L Potassium Level 3.3 mmol/L Chloride Level 106 mmol/L Carbon Dioxide Level 26 mmol/L Anion Gap 9.0 mmol/L Blood Urea Nitrogen 24 mg/dl Creatinine 1.55 mg/dl 1.74 mg/dl Est Creatinine Clear Calc Drug Dose 39.2 ml/min 35.0 ml/min Estimated GFR () 48.3 42.0 Estimated GFR (Non- 41.7 36.2 BUN/Creatinine Ratio 15.6 Random Glucose 100 mg/dl Lactic Acid Level 2.1 mmol/L Calcium Level 8.2 mg/dl Total Bilirubin 0.4 mg/dl Aspartate Amino Transf (AST/SGOT) 23 U/L Alanine Aminotransferase (ALT/SGPT) 27 U/L Alkaline Phosphatase 43 U/L Total Protein 5.6 gm/dl Albumin 3.1 gm/dl Globulin 2.5 gm/dl Albumin/Globulin Ratio 1.2 Procalcitonin 0.08 ng/ml Random Cortisol 7.14 mcg/dl Assessment and Plan 1. Bladder Cancer POD 1 s/p TURBT with right stent and mitomycin instillation 2. Radha's on immunosuppresion 3. Post op Nausea. Patient drastically improved. Had been NPO and was very nausea after procedure and also required narcotics. May have developed severe nausea after anesthesia.. Shaking resolved. Unsure of significance. Patient can be de-esculated on antibiotics. Can go home without donis in place. Continue voiding. up diet and activity. Follow up as ordered.
--- NOTE | 2018-05-10 13:24 | Discharge Summary ---
Discharge Summary Date of Service May 09, 2018. 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 Wilcox Consultations: Urology Critical care Medication Reconciliation New Medications: Cephalexin (Keflex) 500 Mg Cap 1 CAP PO BID for 3 Days, #6 CAP Oxycodone/Acetaminophen 7.5MG/325MG (Percocet 7.5MG/325MG) Tab 1 TAB PO Q4 PRN for Pain, #6 TAB Phenazopyridine Hcl (Pyridium) 200 Mg Tab 200 MG PO TID, #6 TAB Tamsulosin Hcl (Flomax) 0.4 Mg Cap 0.4 MG PO DAILY, #30 CAP Continued Medications: Azathioprine (Imuran) 50 Mg Tab 50 MG PO QPM, TAB Calcium Carbonate-Vitamin D (Calcium 500 + D) 1 Tab Tab 1 TAB PO QPM Cyanocobalamin (Vitamin B12 500MCG) 500 Mcg Tab 500 MCG PO QAM, TAB Folic Acid (Folic Acid) 1 Mg Tab 1 MG PO QAM Latanoprost (Latanoprost) 37 Drops/2.5 Ml Soln 1 DROP OPB HS Levothyroxine Sodium (Levothyroxine Sodium) 75 Mcg Tab 75 MCG PO QAM, TAB Prednisone Tab (Prednisone) 10 Mg Tab 10 MG PO BID, TAB Pyridoxine (Vitamin B6) 100 Mg Tab 100 MG PO QAM, TAB Ranitidine (Zantac) 150 Mg Tab 150 MG PO BID, TAB Sulfa/Trimethoprim (Bactrim Ds 800MG/160MG) Tab 1 TAB PO 3XWK, #6 TAB Tamsulosin HCl (Tamsulosin HCl) 0.4 Mg Cap 1 TAB PO HS Discharge Exam Patient feeling 100% better the morning after surgery. Sitting up in chair, no rigors, no nausea, no fever. Able to urinate well, still with some light hematuria but no retention. Evaluated by Dr. Wilcox and discussed case with him, okay with discharge from his perspective. Advised to resume home medications when he returned home. Review of Systems: Constitutional: No fever, No chills, No sweats, No weight loss, No weakness , No fatigue, No problem reported Eyes: No worsening of vision, No eye pain, No redness, No discharge, No diplopia, No problem reported ENT: No hearing loss, No unusual epistaxis, No nasal symptoms, No sore throat, No tinnitus, No dental problems, No trouble swallowing, No problem reported Respiratory: No cough, No sputum, No wheezing, No shortness of breath, No dyspnea on exertion, No dyspnea at rest, No hemoptysis, No problem reported Cardiovascular: No chest pain, No orthopnea, No PND, No edema, No claudication, No palpitations, No problem reported Abdomen: No pain, No nausea, No vomiting, No diarrhea, No constipation, No GI bleeding, No problem reported Musculoskeletal: No joint pain, No muscle pain, No swelling, No calf pain, No problem reported Genitourinary - Male: + hematuria, + urinary hesitancy, No dysuria, No urinary frequency, No urinary urgency, No urinary retention, No urinary incontinence, No penile discharge Neurologic: No memory loss, No paralysis, No weakness, No numbness/tingling , No vertigo, No balance problems, No problem reported Psychiatric: No depression symptoms, No anhedonism, No anxiety, No insomnia , No substance abuse, No problem reported Endocrine: No fatigue, No excessive thirst, No excessive urination, No problem reported Hematologic / Lymphatic: No abnormal bleeding/bruising, No clotting problems , No swollen lymph nodes, No night sweats, No problem reported Integumentary: No rash, No itch, No new/changing skin lesions, No color change, No bleeding, No problem reported Physical Exam: General Appearance: WD/WN, no apparent distress Eyes: normal inspection, EOMI, sclerae normal ENT: normal ENT inspection, hearing grossly normal, pharynx normal Neck: supple, no adenopathy, no JVD, trachea midline Respiratory/Chest: chest non-tender, lungs clear, normal breath sounds, no respiratory distress, no accessory muscle use Cardiovascular: regular rate, rhythm, no edema, no gallop, no JVD, no murmur , normal peripheral pulses Abdomen / GI: normal bowel sounds, non tender, soft, no organomegaly Extremities: normal inspection, no calf tenderness, normal capillary refill , no pedal edema, normal range of motion, pelvis stable 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 Wilcox. Pt was feeling unwell s/p procedure. He started having bladder pain that did improve s/p Percocet, suppository, and d/c donis. It was then noted that pt had blood in his urine and had an episode of n/v. He then felt somewhat improved. He was given IVF, but then started shaking. This was "on and off" per family. He was noted to have 95cc urine in his bladder, BS was 79, 95. VSS. Pt states he felt fine pre-op and in the days leading up to this. Pt denies fever, SOB, chest pain, abd pain, n/v/c/d, LE swelling prior. Pt denied nausea during our discussion, however after CXR, pt had another episode of emesis. Post-op n/v, shaking: uncertain etiology, possible related to anesthesia vs infection completely resolved in less than 12 hours, feeling great prior to discharge likely just some post operative rigors from anesthesiology CXR neg for acute WBC WNL, PRP WNL Blood cx with no growth Zosyn, fluconazole given prophylactically given hx of immunosuppression Pt has hx of tremors at baseline will d/c home on Bactrim and Keflex Bladder cancer: s/p TURBT voiding well, has some hematuria cleared for discharge by Dr. Wilcox follow up in the office d/c on Keflex and Bactrim Radha's granulomatosis: continue home meds with Imuran and Prednisone can follow up with Dr. Garcia as needed CKD III: baseline cr is 1.4 Cr up slightly at 1.7 but patient making adequate urine likely just due to procedure patient will stay well hydrated at home Hypothyroid: continue home meds GERD: continue home meds Total Time Spent: Greater than 30 minutes This includes examination of the patient, discharge planning, medication reconciliation, and communication with other providers. Discharge Instructions Please refer to the electronic Patient Visit Report (Discharge Instructions) for additional information. Follow-Up Dr. Wilcox in one week Dr. Kebede in 1-2 weeks Additional Copies To Dima Kebede M.D.; Hal Wilcox, II., DO; Veronica Garcia MD
== END 2018-05-09 12:54 | disposition home or self-care (01) | DRG 669 ==
LOC: C.ACU 08:56 → EDBEDREQSVC 18:10 → ENRESERV 18:25 → CANRESERV 18:25 → EDBEDREQSVC 18:56 → ENRESERV 19:07 → C.MSICU 19:25
PROVIDERS: ADMIT Family Medicine; ATTEND Internal Medicine
PROC: 0TBB8ZZ Excision of Bladder, Via Natural or Artificial Opening Endoscopic (ICD-10-PCS; principal; 2018-05-08 11:00)
DX: C67.9 Malignant neoplasm of bladder, unspecified (principal); M31.31 Wegener's granulomatosis with renal involvement; R31.9 Hematuria, unspecified; R11.2 Nausea with vomiting, unspecified; R68.89 Other general symptoms and signs; T41.205A Adverse effect of unspecified general anesthetics, initial encounter; N18.3 Chronic kidney disease, stage 3 (moderate); E89.0 Postprocedural hypothyroidism; K21.9 Gastro-esophageal reflux disease without esophagitis; N40.0 Benign prostatic hyperplasia without lower urinary tract symptoms; J44.9 Chronic obstructive pulmonary disease, unspecified; Z86.718 Personal history of other venous thrombosis and embolism; Z87.891 Personal history of nicotine dependence; Z79.2 Long term (current) use of antibiotics; Z79.52 Long term (current) use of systemic steroids; Z79.899 Other long term (current) drug therapy

== ENCOUNTER → 2018-05-30 | Outpatient (CLI) | payer BC ==
[~2018-05-30] MED LIST changes: -CIPROFLOXACIN / D5W 400 MG IV SCH; -DEXAMETHASONE SOD INJ 4 MG/ML VIAL ONE; -FENTANYL CITRATE INJ 50 MCG/1 ML 2 ML VIAL ONE; -LACTATED RINGER'S 1000ML 1,000 ML IV SCH; -LIDOCAINE HCL 2% 2 ML VIAL (20MG/ML) ONE; -MIDAZOLAM HCL 1 MG/ML 2ML VIAL ONE; -MITOMYCIN FOR INJ 40 MG in SYRINGE 40 ML INSTIL SCH; -ONDANSETRON INJ 2 MG/ML 2 ML VIAL ONE; +OXYC7.5T65 PO; -PROPOFOL IV EMULSION 10 MG/ML 20 ML VIAL ONE
[2018-05-30 12:59] LABS: BASO % 0.1 %; BASO ABS # 0.01 K/uL (0-0.2); HEMATOCRIT 36.5 % (42-52); HEMOGLOBIN 11.8 g/dL (14.0-18.0); IG# 0.45 K/uL (0.00-0.02); LYMPH % 4.4 %; LYMPH ABS # 0.49 K/uL (1.2-3.4); MEAN CELL VOLUME 107.7 fL (80-100); MEAN CORPUSCULAR HEMOGLOBIN 34.8 pg (25-34); MEAN CORPUSCULAR HGB CONC 32.3 g/dl (32-36); MEAN PLATELET VOLUME 10.7 fL (7.4-10.4); MONO % 1.3 %; MONO ABS # 0.15 K/uL (0.11-0.59); NEUT % 90.2 %; NEUT ABS # 10.13 K/uL (1.4-6.5); PLATELET COUNT 177 K/uL (130-400); RED CELL DISTRIBUTION WIDTH CV 14.5 % (11.5-14.5); WHITE BLOOD COUNT 11.23 K/uL (4.8-10.8)
[2018-05-30 13:19] LABS: ALBUMIN 2.8 gm/dl (3.4-5.0); ALKALINE PHOSPHATASE 57 U/L (45-117); ALT/SGPT 30 U/L (12-78); AST/SGOT 18 U/L (15-37); CREATININE 1.81 mg/dl (0.60-1.40); TOTAL PROTEIN 6.2 gm/dl (6.4-8.2)
== END | disposition home or self-care (01) ==
LOC: C.LAB 12:08
PROVIDERS: ATTEND Internal Medicine Rheumatology
DX: M31.30 Wegener's granulomatosis without renal involvement (principal); K21.9 Gastro-esophageal reflux disease without esophagitis; G62.9 Polyneuropathy, unspecified; Z79.899 Other long term (current) drug therapy; Z86.19 Personal history of other infectious and parasitic diseases